=== PATIENT | female | born 1960 | race Caucasian/White ===

== ENCOUNTER 2024-08-07 14:26 | Emergency (ER) | payer OTHER, SELFPAY ==
[2024-08-07 14:28] VITALS: BP 148/100; PULSE 88; RESP 18; TEMP 36.2; O2SAT 100; BMI 28.9
--- NOTE | 2024-08-07 14:57 | CT_ITS ---
INDICATION: Erythema, swelling forehead and upper eyelids EXAMINATION: CT SINUSES - CT Sinuses W/O Contrast Injection TECHNIQUE: Helically acquired images were obtained of the paranasal sinuses. A radiation dose optimization technique was used for this scan. IV Contrast dosage and agent: None. COMPARISON: None. FINDINGS: FRONTAL SINUSES AND RECESSES: Absent. ETHMOID AIR CELLS: Clear. MAXILLARY SINUSES: Minimal mucoperiosteal thickening bilaterally. OSTIOMEATAL COMPLEXES: Clear and normally formed. SPHENOID SINUSES: Clear. ANCILLARY FINDINGS: NASAL TURBINATES: Unremarkable. NASAL SEPTUM: Midline. ORBITS: Unremarkable. VISUALIZED DENTITION: No periodontal osseous erosion. ANTERIOR CRANIAL FOSSA: Unremarkable. CT/Sinus/Facial Bone IMPRESSION: No significant paranasal sinus abnormality. Electronically Signed: Richard Aguilar MD at 16:27 EDT ,
--- NOTE | 2024-08-07 15:11 | EX.ED.DYSGE1 ---
HPI History of Present Illness Chief Complaint: Rash Detail of Chief Complaint: Rash involving the forehead bilaterally now extending to the bridge of the Informant: patient Onset/Context/Timing Onset: Days Context: Sudden Onset Timing: Continuous Quality: Erythematous rash with swelling and minimal itching Location: Bilateral forehead Current Severity: Moderate Maximum Severity: Moderate Worsened by: Nothing Relieved by: Nothing Associated Symptoms Associated Symptoms: Spread to the upper eyelids which concerns patient. Narrative Narrative: Patient is a 63-year-old woman. She was seen by her primary care physician and had blood work which revealed elevated ESR however normal once corrected for age, normal CRP and normal white count with differential. Basic metabolic panel revealed increased anion gap.. She then was seen by nurse practitioner for dermatology. Patient's concern is because she had preseptal cellulitis and was concerned this may spread to her eye and affect her vision. She denies fever, chills night sweats. No double vision blurred vision loss of vision. She states the rash is slightly pruritic. She has not had her hair dyed recently. She did have a lesion in the scalp which in my opinion was a sebaceous cyst. Patient reports that she had lymphadenopathy in proximity to the angle of the mandible right greater than left. Patient is on no immunosuppressive meds. There is no history of rheumatic fever, heart murmur, SBE or being immune suppressed. Prior similar symptoms: Yes Recent Illness/Hospitalization: Yes [facility] Medical History (Updated 08/07/24 @ 16:[address] Raad Patricio MD) Osteoporosis Rosacea Depression Anxiety Allergy/AdvReac Type Severity Reaction Status Date / Time Iodinated Contrast Media (IV Allergy Severe Anaphylaxis Verified 08/07/24 14:28 dye) vancomycin Allergy Severe Anaphylaxis Verified 08/07/24 14:28 codeine Allergy Mild itching Verified 08/07/24 14:28 Social History (Updated 08/07/24 @ 15:[address] Raad Patricio MD) household members: none Smoking Status: Never smoker ROS ROS ED Constitutional Constitutional ED: Denies chills, fever(s), subjective or sweats Eyes Eyes: Denies blurry vision, change in vision or diplopia ENT ENT ED: Denies rhinorrhea or sore throat Cardiovascular Cardiovascular: Denies chest pain or palpitations Respiratory/Chest Respiratory/Chest: Denies cough or dyspnea Gastrointestinal Gastrointestinal: Denies nausea or vomiting Musculoskeletal Musculoskeletal: Denies neck pain Integumentary Reports rash; Denies abscess or Abrasions Hematologic/Lymphatic Hematologic/Lymphatic: Reports systems reviewed and no addt'l complaints, except as documented Allergic/Immunologic Allergic/Immunologic ED: Denies mouth swelling, tongue swelling or urticaria EXAM Physical Exam Const Vital Signs: 08/07/24 14:28 08/07/24 14:28 08/07/24 15:31 Temperature 97.2 F L 97.2 F L 98.5 F Temperature Source Temporal Oral Oral Pulse Rate 88 88 81 Respiratory Rate 18 18 18 Blood Pressure 148/100 H 148/100 H 158/102 H Blood Pressure Mean 116 116 120 Pulse Ox 100 100 97 Oxygen Delivery Method Room Air Room Air Room Air Positive well nourished and well developed General Appearance ED: well developed and NAD; Negative for pallor HEENT Reports moist mucous membranes HEENT Narrative: There is swelling of the forehead bilaterally. The rash is erythematous and blanches. There is no induration, warmth lymphangitis or lymphadenopathy. There is swelling over the bridge of the nose and medial aspect of the right and left upper eyelid. There is no abnormality of the lash or lacrimal patterns. Eyes PERRL and EOMs intact bilaterally General Eye ED: Negative for pale conjunctiva or scleral icterus Neck no lymphadenopathy, supple and no JVD Resp normal respiratory effort and clear to auscultation bilaterally Cardio regular rate, regular rhythm, S1 normal heart sound, S2 normal heart sound and no murmurs Neuro oriented x3, CN's II-XII intact bilaterally and no sensory deficits noted Sensorium / Orientation: alert Psych Mood & Affect: anxious Skin no rashes or lesions noted, no wounds and skin turgor normal General Skin Exam: Negative for jaundice or pallor MDM MDM MDM Narrative Medical decision making narrative: Patient has a blanching erythematous rash involving the forehead, bridge of the nose and right upper and left upper eyelid. There is evidence that she had a sebaceous cyst near the vertex of the scalp. There is no erythema in this area nor is there any warmth or induration. There is no fluctuance. Uncertain if this is cellulitis or allergic reaction since patient is seen more than 1 practitioner was placed on antibiotics and more importantly there is been no change in spite of intervention. Will obtain CT of the face without contrast since she has anaphylaxis to IV contrast to determine there is any inflammation or fluid collection. Since she had blood work yesterday this was not repeated. White count was normal. Differential was normal. Compress metabolic panel reveals a CO2 of 21 with an anion gap of 16. ESR was elevated however normal once corrected for age. CRP was normal. Radiography Diagnostic Testing: Clinical Impression(s) from Imaging Studies Facial/Sinus 08/07/24 14:57 IMPRESSION: No significant paranasal sinus abnormality. Electronically Signed: Richard Aguilar MD at 16:27 EDT , CT was reviewed by me and interpretation by radiologist was read. Treatment and Re-Evaluation :: Patient's construction because of the swelling. I informed her that her workup was unremarkable. Since she has itching would recommend Benadryl and ice. Discharge Plan Triage Chief Complaint: Rash ED Provider: Raad Patricio Dx/Rx/DC Orders Clinical Impression: Pruritic erythematous rash, Elevated blood-pressure reading, without diagnosis of hypertension Instructions: ED Erythema, ED Hypertension, To Be Confirmed Primary Care Provider: Kavon Pinedo Referrals: Kavon Pinedo MD [Primary Care Provider] - 1 Week if not improving Print Language: Portuguese Disposition Disposition: Home, Self Care
[2024-08-07 15:31] VITALS: BP 158/102; PULSE 81; RESP 18; TEMP 36.9; O2SAT 97
[2024-08-07 17:03] VITALS: BP 145/90; PULSE 78; RESP 16; TEMP 36.8; O2SAT 96
== END 2024-08-07 17:05 | disposition home or self-care (01) ==
PROVIDERS: Emergency Provider Emergency Medicine; PCP Internal Medicine; Visit Provider Emergency Medicine
DX: R21 Rash and other nonspecific skin eruption (principal); R03.0 Elevated blood-pressure reading, without diagnosis of hypertension
CPT/HCPCS: 70486; 99282

== ENCOUNTER → 2024-12-23 | Outpatient (CLI) | payer OTHER, SELFPAY ==
--- NOTE | 2024-12-23 12:43 | RAD_ITS ---
PROCEDURE: PA and lateral chest radiographs, two views REASON FOR EXAM: Persistent cough TECHNIQUE: PA and lateral chest radiographs were obtained. COMPARISON: None. FINDINGS: The cardiomediastinal silhouette is within normal limits. The thoracic aorta is slightly tortuous. No pneumothorax, focal airspace consolidation, or pleural effusion. Mild pulmonary hyperinflation. Bones are osteopenic with degenerative changes in the spine. RAD/Chest PA and Lateral IMPRESSION: Pulmonary hyperinflation/emphysema. No acute cardiopulmonary process is demons trated. If there are persistent symptoms or clinical concern, short-term follow-up chest CT evaluation may be considered. Reading Location: [id number]
== END | disposition home or self-care (01) ==
LOC: MTRAD 12:42
PROVIDERS: PCP Family Medicine; Referring Provider Family Medicine; Visit Provider Family Medicine
DX: R05.3 Chronic cough (principal)
CPT/HCPCS: 71046

== ENCOUNTER → 2024-12-27 | Outpatient (CLI) | payer OTHER, SELFPAY ==
[2024-12-29 13:08] LABS: Alpha Antitrypsin Serum 137 mg/dL (101-187)
== END | disposition home or self-care (01) ==
LOC: MFPLAB 12:11
PROVIDERS: PCP Family Medicine; Referring Provider Family Medicine; Visit Provider Family Medicine
DX: J43.9 Emphysema, unspecified (principal)
CPT/HCPCS: 36415; 82103

== ENCOUNTER → 2025-07-29 | Outpatient (CLI) | payer OTHER, SELFPAY ==
--- OUTSIDE RECORDS SUMMARY | 2025-07-29 10:14 | XMS RPT_ITS | CCD ---
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 per week Drug use: Never BP 118/88 Pulse 84 Ht 160.7 cm (5' 3.25) Wt 72 kg (158 lb 11.7 oz) SpO2 99% BMI 27.90 kg/m? Physical Exam Vitals reviewed. Constitutional: Appearance: Normal appearance. HENT: Mouth/Throat: Mouth: Mucous membranes are moist. Eyes: Conjunctiva/sclera: Conjunctivae normal. Neck: Thyroid: No thyroid mass, thyromegaly or thyroid tenderness. Cardiovascular: Rate and Rhythm: Normal rate and regular rhythm. Pulses: Normal pulses. Heart sounds: Normal heart sounds. No murmur heard. Pulmonary: Effort: Pulmonary effort is normal. Breath sounds: Normal breath sounds. No wheezing, rhonchi or rales. Abdominal: General: There is no distension. Palpations: Abdomen is soft. There is no hepatomegaly, splenomegaly or mass. Tenderness: There is no abdominal tenderness. Lymphadenopathy: Cervical: No cervical adenopathy. Upper Body: Right upper body: No supraclavicular adenopathy. Left upper body: No supraclavicular adenopathy. Skin: General: Skin is warm and dry. Neurological: Mental Status: She is alert. Psychiatric: Mood and Affect: Mood normal. Health maintenance reviewed with patient: Cervical Cancer Screening due on 08/23/2025 Mammogram Screening due on 08/27/2025 Diabetes Screening due on 08/24/2027 Lipid Screening due on 09/30/2028 DTaP,Tdap,Td Vaccine(3 - Td or Tdap) due on 04/27/2032 Colorectal Cancer Screening due on 06/11/2034 RSV Vaccine(1 - 1-dose 75+ series) due on 2034 Influenza Vaccine Completed Hepatitis C Screening Completed HIV Screening Completed Shingrix Vaccine Completed Covid-19 Vaccine Completed DATA REVIEWED: Most recent labs ASSESSMENT/PLAN: 1. Wellness examination - ICD9: V70.0, ICD10: Z00.00 (primary diagnosis) - Counseled on healthy diet and regular exercise - Follow up for annual exam in one year 2. Major depressive disorder, recurrent episode, moderate (HCC) - ICD9: 296.32, ICD10: F33.1 Stable 3. Generalized anxiety disorder - ICD9: 30 (more content not included)... Normal [facility] LIPOPROTEIN FRACTIONATION BY NMR WITH LIPIDSon 09-09-2024 Cholesterol [Mass/Vol] 218 mg/dL High <=199 [facility] Comment on above: Order Comment: Speci men Type: BLOOD SPECIMENOrdering Facility: [facility] Address: [address] [place] [address] Performed By: #### N MRLPD ####[facility] [id number] [place] [address] Cholesterol in HDL [Mass/Vol] 53 mg/dL Normal 40-59 [facility] Comment on above: Order Comment: Speci men Type: BLOOD SPECIMENOrdering Facility: [facility] Address: [address] [place] [address] Performed By: #### N MRLPD ####[facility]CLIA [id number] [place] [address] EER LIPOFIT BY NMR See Note Normal [facility] Comment on above: Order Comment: Speci men Type: BLOOD SPECIMENOrdering Facility: [facility] Address: [address] [place] [address] Result Comment: Auth orized individuals can access the Clear[employer]ist Enhanced Report using the following link: [email or web address] INTERPRETIVE INFORMATION: LipoFit by NMR This test was developed and its performance characteristics determined by [facility]. It has not been cleared or approved by the [place] Food and Drug Administration. This test was performed in a CLIA certified laboratory and is intended for clinical purposes. Performed By: [employer] [address] [place] [address] Circulator: Piter Medina MD, PhD CLIA Number: [id number] Performed By: #### N MRLPD ####[facility] [id number] [place] [address] HDL PARTICLE NUMBER, NMR 35.8 umol/L Normal >=33.0 [facility] Comment on above: Order Comment: Speci men Type: BLOOD SPECIMENOrdering Facility: [facility] Address: [address] [place] [address] Result Comment: INTE RPRETIVE INFORMATION: HDL Particle Number, NMR Percentiles in Reference Population: 25th 50th 75th 29.7 33.0 36.8 Performed By: #### N MRLPD ####[facility]IA [id number] [place] [address] HDL PARTICLE SIZE, NMR 8.6 nm Low >=8.9 [facility] Comment on above: Order Comment: Speci men Type: BLOOD SPECIMENOrdering Facility: [facility] Address: [address] [place] [address] Result Comment: INTE RPRETIVE INFORMATION: HDL Particle Size, NMR Percentiles in Reference Population: 25th 50th 75th 8.6 8.9 9.3 Performed By: #### N MRLPD ####[facility]OR[facility]IESCLIA [id number] [place] [address] LARGE HDL PARTICLE NUMBER, NMR 3.2 umol/L Low >=4.2 [facility] Comment on above: Order Comment: Speci men Type: BLOOD SPECIMENOrdering Facility: [facility] Address: [address] [place] [address] Result Comment: INTE RPRETIVE INFORMATION: Large HDL Particle Number, NMR Percentiles in Reference Population: 25th 50th 75th 2.0 4.2 7.3 Performed By: #### N MRLPD ####[facility]CLIA [id number] [place] [address] LARGE VLDL PARTICLE NUMBER, NMR 2.1 nmol/L Normal <=2.7 [facility] Comment on above: Order Comment: Speci men Type: BLOOD SPECIMENOrdering Facility: [facility] Address: [address] [place] [address] Result Comment: INTE RPRETIVE INFORMATION: Large VLDL Particle Number, NMR Percentiles in Reference Population: 25th 50th 75th 0.9 2.7 7.0 Performed By: #### N MRLPD ####[facility]IESCLIA [id number] [place] [address] LDL CHOL CALCULATED 153 mg/dL High <=129 [facility] Comment on above: Order Comment: Speci men Type: BLOOD SPECIMENOrdering Facility: [facility] Address: [address] [place] [address] Performed By: #### N MRLPD ####[facility]IESCLIA [id number] [place] [address] LDL PARTICLE NUMBER, NMR 1356 nmol/L High <=1135 [facility] Comment on above: Order Comment: Speci men Type: BLOOD SPECIMENOrdering Facility: [facility] Address: [address] [place] [address] Result Comment: REFE RENCE INTERVAL: LDL Particle Number, NMR Low............... Less than 1136 Moderate.......... 1136 - 1449 Borderline High... 1450 - 1764 High.............. 1765 - 2186 Very High......... Greater than 2186 Percentiles in Reference Population: 50th 80th 95th 1136 1450 1765 2186 Percentiles consistent with those from NCEP ATP III LDL-C cutpoints of 100 mg/dL( percentile) and 160 mg/dL (80th percentile). Performed By: #### N MRLPD ####[facility]IESCLIA [id number] [place] [address] LDL PARTICLE SIZE, NMR 21.2 nm Normal >=20.7 [facility] Comment on above: Order Comment: Speci men Type: BLOOD SPECIMENOrdering Facility: [facility] Address: [address] [place] [address] Result Comment: INTE RPRETIVE INFORMATION: LDL Particle Size, NMR Percentiles in Reference Population: 25th 50th 75th 19.6 20.7 22.5 Performed By: #### N MRLPD ####[facility]IESCLIA [id number] [place] [address] SMALL LDL PARTICLE NUMBER, NMR 539 nmol/L Normal <=634 [facility] Comment on above: Order Comment: Speci men Type: BLOOD SPECIMENOrdering Facility: [facility] Address: [address] [place] [address] Result Comment: INTE RPRETIVE INFORMATION: Small LDL Particle Number, NMR Percentiles in Reference Population: 25th 50th 75th 220 634 949 Performed By: #### N MRLPD ####[facility]IESCLIA [id number] [place] [address] Triglyceride [Mass/Vol] 62 mg/dL Normal 30-149 [facility] Comment on above: Order Comment: Speci men Type: BLOOD SPECIMENOrdering Facility: [facility] Address: [address] [place] [address] Performed By: #### N MRLPD ####[facility]IESCLIA [id number] [place] [address] VLDL PARTICLE SIZE, NMR 46.7 nm Normal <=46.7 [facility] Comment on above: Order Comment: Speci men Type: BLOOD SPECIMENOrdering Facility: [facility] Address: [address] [place] [address] Result Comment: INTE RPRETIVE INFORMATION: VLDL Particle Size, NMR Percentiles in Reference Population: 25th 50th 75th 44.3 46.7 50.2 Performed By: #### N MRLPD ####[facility]IESCLIA [id number] [place] [address] CNOVon 09-06-2024 CNOV Office Visit (OBGYWM ) -------- ELIESER SPENCER ([id number]) 1960 F Date Time Provider Department 09/06/24 1:40 PM SHANNON GUERRERO OBGYWDerek During your visit today, we recorded the following information about you: Blood pressure Weight 126/80 72.1 kg Shannon Guerrero MD 09/06/2024 5:07 PM Signed Showroom Sales Assistant offered: Patient declines. Elieser is a 63 year old Female who presents today for a colposcopy. The patient's last pap smear was Positive HPV from August 2024. Patient has a history of abnormal pap: Yes. The patient has had prior treatment: none. test: n/a UNIVERSAL PROTOCOL / SAFETY CHECKLIST Procedure to be Performed: colposcopy Sign In: A Moment of CARE was completed. Personnel directly involved with the procedure wore the appropriate PPE (Personal Protective Equipment). Patient/Surrogate Stated/Verified: PATIENT VERIFIED(optional for EMERGENT procedures): Patient name, Date of , Relevant allergies, and The intended procedure Time Out Communication: Intended patient and procedure match the source documents. Consent documented and matches the intended procedure. Sign Out: SIGN OUT (optional for EMERGENT procedures): No specimen collected. All instruments, equipment, possible retained foreign bodies accounted for. PROCEDURE: EXTERNAL GENITALIA: Normal in appearance without lesions VAGINA: Normal in appearance without lesions CERVIX: Speculum placed in vagina and excellent visualization of cervix achieved. Cervix swabbed x 3 with 3% acetic acid solution. Cervix grossly normal. Squamocolumnar junction visualized. No acetowhite changes, punctations, mosaicism or atypical vasculature noted. BIOPSY: Not done. ECC: not done HEMOSTASIS: Obtained with n/a Procedure Summary: Patient tolerated procedure well and colposcopy was adequate. No annotated images are attached to the encounter. ASSESSMENT: HPV effect PLAN: Will notify patient of results in 1-2 weeks. Repeat pap yearly MD Juanita Obregon [place], [place] 09/06/2024 1:27 PM Signed YOUR RECOVERY It may take a few weeks for your cervix to heal. While your cervix heals, you may have: - Vaginal bleeding (less than a normal menstrual period) - Mild cramping - A brown-black vaginal discharge (similar to coffee grounds) which is a result of the paste used to help stop bleeding from the procedure Do NOT put anything in the vagina for 1 week after your colposcopy if your doctor does a biopsy of your cervix. This includes sex, tampons, and douches. If you have any discomfort, you may take an over the counter pain medication (motrin, advil, ibuprofen, tylenol, etc). If this does not relieve your discomfort, contact your doctor's office for a prescription strength pain medication. It is okay to wear a sanitary pad until the discharge and spotting stops. RISKS Although problems seldom occur with colposcopy, there can be some complications. You may feel faint during and shortly after the procedure as well as have some bleeding and vaginal discharge after the procedure. There is also a risk of infection after the procedure. These complications are rare and can be easily treated. You should contact you doctor is you have any of the following: - Heavy bleeding (more than your normal period) - Bleeding with clots - Severe abdominal pain - Fever (more than 100.4F) - Foul smelling vaginal discharge RESULTS If a biopsy was taken, we will have the results of your biopsy in 1-2 weeks. If you do not hear the results of your biopsy after 2 weeks, please contact your physicians office for the results. Depending on the biopsy results, your doctor will determine your follow up plan which may include further testing or treatments. STAYING HEALTHY After the procedure, you will need to see your doctor for follow up visits during the year. At these visits your doctor will check the health of your cervix with a pap smear. After three normal pap smears, your doctor will allow you to return to having exams once a year. If you have another abnormal pap smear, you may need closer follow up for longer or you may need additional treatment. By making a few lifestyle changes after the procedure, you can help protect the health of your cervix: - Have regular pelvic exams and pap smears as ordered by your doctor. - Stop smoking as smoking increases your risk of developing a cancer of the cervix - If you have more than one sexual partner, limit your number of partners and use condoms to reduce your risks of STDs. If you have any additional questions, please contact your doctor's office. Referring Provider: NEHAL BARRIGA [[id number]] Allergies As of Date: 09/06/2024 Noted Allergy Reaction IODIXANOL 04/27/2022 10 - Anaphylaxis IV DYE (IODINATED CONTRAST MEDIA) 11/07/2016 10 - Anaphylaxis VANCOMYCIN 11/07/2016 10 - Anaphyl (more content not included)... Normal [facility] Isaiah 08-30-2024 KENIA Telephone (OBGYWM) -------- HARRIETELIESER ([id number]) 1960 F Date Time Provider Department 08/30/24 NEHAL BARRIGA OBGYWM During your visit today, we recorded the following information about you: Nehal Barriga APRN.CNP 08/30/2024 12:06 PM Signed Pap normal and HPV+ again. She will need a colp again this yr. Order filed. Nehal Barriga APRN.Bambi Iyer RN 08/30/2024 12:20 PM Signed Left message to call office. FRANCESCA Jackson Tara, RN 08/30/2024 1:11 PM Signed Pt notified and colposcopy scheduled. Marco Humphries RN Allergies As of Date: 08/30/2024 Noted Allergy Reaction IODIXANOL 04/27/2022 10 - Anaphylaxis IV DYE (IODINATED CONTRAST MEDIA) 11/07/2016 10 - Anaphylaxis VANCOMYCIN 11/07/2016 10 - Anaphylaxis CODEINE 11/07/2016 2 - Rash Date Reviewed: 08/24/2024 Reviewed by: Annie Lance OCCA - Fully Assessed Reason for Visit: Results [95] Primary Visit Diagnosis:Cervical high risk HPV (human papillomavirus) test positive [R87.810] Order(s):COLPOSCOPY [[id number]] Order #: [id number] Prescriptions as of 08/30/2024 - minocycline (MINOCIN, DYNACIN) 100 mg capsule Take 100 mg by mouth two times a day. Has not started - DULoxetine (CYMBALTA) 30 mg capsule Take 1 capsule by mouth once daily. - naphazoline HCl/pheniramine (OPCON-A OPHTHALMIC) Use in eyes. - CETIRIZINE HCL (ZYRTEC ORAL) Take by mouth. 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 Patient states no personal history of breast cancer. Patient states no personal history of other cancers. COMPARISON STUDIES: The present examination has been compared to prior imaging studies dated 07/31/2017 (mammogram), 08/27/2017 (mammogram), 06/21/2022 (mammogram), 07/05/2022 (ultrasound) and 07/30/2023 (mammogram). MAMMOGRAM TECHNIQUE: The study was acquired using full field digital technology and interpreted from soft copy. Digital Breast Tomosynthesis (DBT) images were obtained and used to assist in the interpretation of this examination. Computer-aided detection was utilized by the radiologist in the interpretation of this examination. MAMMOGRAM FINDINGS: There are scattered areas of fibroglandular density. There is a stable focal asymmetry in the upper outer quadrant of the left breast. There are no significant changes from the prior study. No suspicious masses, calcifications or other abnormalities are seen in either breast. IMPRESSION: There is no mammographic evidence of malignancy. A routine screening mammogram in 1 year is recommended. BI-RADS Category 2: Benign RISK: Based on the Tyrer-Cuzick (TC) risk assessment model, this patient has a 6.6% lifetime risk of developing breast cancer, meaning they are at average risk for developing breast cancer. However, this is only an estimate based on available history provided on the patient's questionnaire. We encourage all patients to talk with their providers about these results, further recommendations for managing breast health, and appropriate supplemental screening options if the patient has dense breast tissue. Interpreting Radiologist: Meera Whipple M.D. Electronically signed on: 08/30/2024 Government Relations Analyst: PAUL Transcribe Date/Time: Aug 27 2024 8:39A Dictated by: MEERA WHIPPLE MD This examination was interpreted and the report reviewed and electronically signed by: MEERA WHIPPLE MD on Aug 30 2024 12:38PM EST [id number] Normal [facility] 25(OH)D3 SerPl-ncon 2023 25-hydroxyvitamin D3 [Mass/Vol] 31.5 ng/mL Normal 31.0-80.0 [facility] Comment on above: Order Comment: Dat torre Type: BLOOD SPECIMEN [facility] Address: [address] [place] [address] Performed By: #### T BRAEDEN #### [facility] CLIA [id number] [address] [place] [address] [place] Basic metabolic 2000 panelon 08-24-2024 Anion gap [Moles/Vol] 12 mmol/L Normal 8-15 [facility] Comment on above: Order Comment: Dat torre Type: BLOOD SPECIMENOrdering Facility: [facility] Address: [address] [place] [address] Performed By: #### 2 4321-2, 45572-3, 3051-0, 28735-8 ####[facility] [id number] [address] [address] [place] Calcium [Mass/Vol] 9.5 mg/dL Normal 8.5-10.2 [facility] Comment on above: Order Comment: Speci men Type: BLOOD SPECIMENOrdering Facility: [facility] Address: [address] [place] [address] Performed By: #### 2 4321-2, 13262-5, 3051-0, 42468-8 ####[facility] [id number] [place] [id number] [place] Chloride [Moles/Vol] 100 mmol/L Normal 98-107 [facility] Comment on above: Order Comment: Speci men Type: BLOOD SPECIMENOrdering Facility: [facility] Address: [address] [place] [address] Performed By: #### 2 4321-2, 76388-1, 3051-0, 90411-9 ####[facility] [id number] [place] [id number] [place] CO2 [Moles/Vol] 24 mmol/L Normal 22-30 [facility] Comment on above: Order Comment: Speci men Type: BLOOD SPECIMENOrdering Facility: [facility] Address: [address] [place], [place] [address] Performed By: #### 2 4321-2, 95895-3, 3051-0, 31698-5 ####[facility] [id number] [place] [id number] [place] Creatinine [Mass/Vol] 0.63 mg/dL Normal 0.58-0.96 [facility] Comment on above: Order Comment: Speci men Type: BLOOD SPECIMENOrdering Facility: [facility] Address: [address] [place] [address] Performed By: #### 2 4321-2, 91603-0, 3051-0, 89724-9 ####[facility]CLIA [id number] [place] [address] [place] Creatinine and Glomerular filtration rate.predicted panel (S/P/Bld) 99 mL/min/1.73m??? Normal >=60 [facility] Comment on above: Order Comment: Dat torre Type: BLOOD SPECIMENOrdering Facility: [facility] Address: [address] [place] [address] Result Comment: Iliana mated Glomerular Filtration Rate (eGFR) is calculated using the 2020 CKD-EPI creatinine equation. This equation utilizes serum creatinine, sex, and age as parameters. The creatinine assay has traceable calibration to isotope dilution-mass spectrometry. Refer to KDIGO guidelines for clinical interpretation. In patients with unstable renal function, e.g. those with acute kidney injury, the eGFR may not accurately reflect actual GFR. Performed By: #### 2 4321-2, 51428-1, 3051-0, 48287-9 ####[facility] [id number] [place] [address] [place] Glucose [Mass/Vol] 101 mg/dL High 74-99 [facility] Comment on above: Order Comment: Dat torre Type: BLOOD SPECIMENOrdering Facility: [facility] Address: [address] [place] [address] Result Comment: The [place] Diabetes Association (ADA) provides guidance for cutoff values for fasting glucose and random glucose. The ADA defines fasting as no caloric intake for at least 8 hours. Fasting plasma glucose results between 100 to 125 mg/dL indicate increased risk for diabetes (prediabetes). Fasting plasma glucose results greater than or equal to 126 mg/dL meet the criteria for diagnosis of diabetes. In the absence of unequivocal hyperglycemia, results should be confirmed by repeat testing. In a patient with classic symptoms of hyperglycemia or hyperglycemic crisis, random plasma glucose results greater than or equal to 200 mg/dL meet the criteria for diagnosis of diabetes. Reference: Standards of Medical Care in Diabetes 2016, [place] [employer] Association. Diabetes Care. 2016.39(Suppl 1). Performed By: #### 2 4321-2, 37367-7, 3051-0, 05019-4 ####[facility] [id number] [place] [address] [place] Potassium [Moles/Vol] 3.9 mmol/L Normal 3.7-5.1 [facility] Comment on above: Order Comment: Speci men Type: BLOOD SPECIMENOrdering Facility: [facility] Address: [address] [place] [address] Performed By: #### 2 4321-2, 06707-3, 3051-0, 17507-8 ####[facility] [id number] [place] [address] [place] Sodium [Moles/Vol] 136 mmol/L Normal 136-144 [facility] Comment on above: Order Comment: Speci men Type: BLOOD SPECIMENOrdering Facility: [facility] Address: [address] [place] [address] Performed By: #### 2 4321-2, 26824-6, 305-0, 71063-4 ####[facility] [id number] [place] [address] [place] Urea nitrogen [Mass/Vol] 18 mg/dL Normal 7-21 [facility] Comment on above: Order Comment: Speci men Type: BLOOD SPECIMENOrdering Facility: [facility] Address: [address] [place] [address] Performed By: #### 2 4321-2, 63666-5, 3051-0, 04718-4 ####[facility] LABIA [id number] [place] [address] [place] CBC W Auto Differential pane l (Bld)on 08-24-2024 Basophils (Bld) [#/Vol] NINF [facility] Basophils/100 WBC (Bld) 0.1 % [facility] Differential cell count method Nom (Bld) Auto [facility] Eosinophils (Bld) [#/Vol] [facility] Eosinophils/100 WBC (Bld) 0.3 % [facility] Erythrocyte distribution width (RBC) [Ratio] 13.4 % 11.5 - 15.0 % [facility] Hematocrit (Bld) [Volume fraction] 41.5 % 36.0 - 46.0 % [facility] Hemoglobin (Bld) [Mass/Vol] 13.8 g/dL 11.5 - 15.5 g/dL [facility] Immature granulocytes (Bld) [#/Vol] 0.07 10*3/uL [facility] Immature granulocytes/100 WBC (Bld) 1.0 % [facility] Lymphocytes (Bld) [#/Vol] 1.02 10*3/uL [facility] Lymphocytes/100 WBC (Bld) 14.1 % [facility] MCH (RBC) [Entitic mass] 31.9 pg 26.0 - 34.0 pg [facility] MCHC (RBC) [Mass/Vol] 33.3 g/dL 30.5 - 36.0 g/dL [facility] MCV (RBC) [Entitic vol] 96.1 fL 80.0 - 100.0 fL [facility] Monocytes (Bld) [#/Vol] 0.47 10*3/uL [facility] Monocytes/100 WBC (Bld) 6.5 % [facility] Neutrophils (Bld) [#/Vol] 5.66 10*3/uL [facility] Neutrophils/100 WBC (Bld) 78.0 % [facility] Nucleated RBC (Bld) [#/Vol] [facility] Nucleated RBC/100 WBC (Bld) [Ratio] 0.0 % /100 WBC [facility] ic Platelet mean volume (Bld) [Entitic vol] 10.2 fL 9.0 - 12.7 fL [facility] Platelets (Bld) [#/Vol] 302 10*3/uL [facility] RBC (Bld) [#/Vol] 4.32 10*6/uL 3.90 - 5.20 m/uL [facility] WBC (Bld) [#/Vol] 7.25 10*3/uL [facility] ic Basophils (Bld) [#/Vol] 10*3/uL Normal <0.11 [facility] Comment on above: Order Comment: Speci men Type: BLOOD SPECIMENOrdering Facility: [facility] Address: [address] [place] [address] Performed By: #### 4 537-7, 85440-9 ####[facility] LABCLIA [id number] [place] [address] [place] Basophils/100 WBC (Bld) 0.1 % Normal [facility] Comment on above: Order Comment: Speci men Type: BLOOD SPECIMENOrdering Facility: [facility] Address: [address] [place] [address] Performed By: #### 4 537-7, 77726-5 ####[facility] LABCLIA [id number] [place] [address] [place] Differential cell count method Nom (Bld) Auto Normal [facility] Comment on above: Order Comment: Speci men Type: BLOOD SPECIMENOrdering Facility: [facility] Address: [address] [place] [address] Performed By: #### 4 537-7, 09472-8 ####[facility] LABCLIA [id number] [place] [address] [place] Eosinophils (Bld) [#/Vol] 10*3/uL Normal <0.46 [facility] Comment on above: Order Comment: Speci men Type: BLOOD SPECIMENOrdering Facility: [facility] Address: [address] [place] [address] Performed By: #### 4 537-7, 49281-3 ####[facility] LABCLIA [id number] [place] [address] [place] Eosinophils/100 WBC (Bld) 0.3 % Normal [facility] Comment on above: Order Comment: Speci men Type: BLOOD SPECIMENOrdering Facility: [facility] Address: [address] [place] [address] Performed By: #### 4 537-7, 82656-4 ####[facility] LABCLIA [id number] [address] [address] [place] Erythrocyte distribution width (RBC) [Ratio] 13.4 % Normal 11.5-15.0 [facility] Comment on above: Order Comment: Speci men Type: BLOOD SPECIMENOrdering Facility: [facility] Address: [address] [place] [address] Performed By: #### 4 537-7, 79009-2 ####[facility] LABIA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 calcifications, or other findings are seen in the breast.IMPRESSION: BENIGN FINDINGThere is no mammographic evidence of malignancy.A 1 year screening mammogram is recommended.Caren Costello M.D.ch/penrad:08/27/2017 12:19:37Imaging Technologist: Ayanna Rush [facility] CenterMamm[facility] BI-RADS: 2 Benign findingTranscribed Using Voice RecognitionTranscribe Date/Time: Aug 27 2017 10:36ADictated by: CAREN COSTELLO MDThis examination was interpreted and the report reviewed and electronically signed by: CAREN COSTELLO MD on Aug 27 2017 12:19PM [id number] N [facility] 08-11-2017 [facility] HNO ID: [id number]: Mammography CoordinatorService: (none)Author Type: PhysicianType: LetterFiled: 08/13/2017 11:31 PMNote Text:August 12, 2017 PID: [id number] [id number] [place], [place] [address]Yynj Ms. Spencer,Your prior imaging studies have arrived and been compared to your currentstudy performed on 07/31/2017 which showed a possible finding thatrequires additional imaging studies for a complete evaluation. Most suchfindings are probably benign (not cancer).If you have a healthcare provider who ordered/prescribed your screeningmammogram: ? Please call [phone] or [phone] to schedulean appointment for your additional imaging (if you have not already done so).If you DO NOT have a healthcare provider (ie you did not have anorder/prescription for your screening mammogram): ? Please call to schedule an appointment for youradditional imaging (if you have not already done so).Your imaging studies and reports are kept on file at [facility] aspart of your permanent medical record, and are available for yourcontinuing care.Thank you for choosing [facility] for your imaging needs.Sincerely,<< >>nterpreting RadiologistBaystate Medical Center(compared needs addl imaging) [facility] 07-31-2017 [facility] HNO ID: [id number]: Mammography CoordinatorService: (none)Author Type: PhysicianType: LetterFiled: 08/04/2017 11:32 PMNote Text:July 31, 2017 PID: [id number] [id number] [place], [place] [address]Pteg Ms. Spencer,Your recent breast imaging exam on 07/31/2017 showed a possible findingthat requires additional imaging studies for a complete evaluation. Mostsuch findings are probably benign (not cancer). Please call [phone] to schedule an appointment for these tests if you havenot already done so.Your breast images and report will be kept on file here as part of yourpermanent medical record and are available for your continuing care.Thank you for allowing us to help in meeting your health care needs.Sincerely,Dr. SantosInterpreting [facility] ([facility]) [facility] SCREENINGon 07-31-2017 [facility] [place] * * *Final Report* * * * SEE BOTTOM OF REPORT FOR ADDENDED TEXT * * *DATE OF EXAM: Jul 31 2017 11:40AM [facility] 0581 - [facility] [place] / REASON: screeing mammogram * * * * Physician Interpretation * * * *RESULT: THIS REPORT HAS BEEN AMENDED.#[id number] - [facility] [place]CRE[place]BILATERAL DIGITAL SCREENING MAMMOGRAM WITH CAD: 07/31/2017HISTORY: Screeing Mammogram /Screening Mammogram - Patient reports NO breast symptoms /Patient has signed release for outside images.RESULT:TECHNIQUE: The study was acquired using full field digital technology and interpreted from soft copy.Current study was also evaluated with a Computer Aided Detection (CAD).No prior exams were available for comparison.There are scattered fibroglandular elements in both breasts.There is possible architectural distortion in the left breast posterior depth superior region seen on the mediolateral oblique view only.No other significant masses, calcifications, or other findings are seen in either breast.IMPRESSION: INCOMPLETE: NEEDS ADDITIONAL IMAGING EVALUATIONThe possible architectural distortion in the left breast is indeterminate. Additional views are recommended.Eddie Santos M.D.ls/penrad:07/31/2017 13:38:49Imaging Technologist: Ayanna Rush [facility] Centerletter sent: Additional Imaging NeededMammogram BI-RADS: 0 Incomplete: needs additional imaging evaluationAMENDMENT: 08/11/2017 Eddie Santos M.D.The patient's previous images dated 12/23/12, 05/05/14 and 06/07/15 are now available and have been compared. Recommend the patient return for additional images of the left breast.Amended BI-RADS: 0 Incomplete: needs additional imaging evaluationletter sent: Compared - Addl Imaging NeededTranscribed Using Voice RecognitionTranscribe Date/Time: Jul 31 2017 11:40ADictated by: EDDIE SANTOS MDThitara examination was interpreted and the report reviewed and electronically signed by: EDDIE SANTOS MD on Jul 31 2017 1:38PM ESTThis document has been addended by: EDDIE SANTOS MD on Aug 11 2017 2:25PM [id number] N [facility] Vital Signs Date Time Vital Sign Value Performing Clinician Faci lity 02-08-2025 14:37-0400 Body mass index (BMI) [Ratio] 28.47 kg/m2 Nehal Mershon AUDIO VISUAL SECRETARY.FOOD INSPECTOR Work Phone: [facility] 02-08-2025 14:37-0400 Body weight 73.48 kg Nehal Nithya AUDIO VISUAL SECRETARY.FOOD INSPECTOR Work Phone: [facility] 02-08-2025 14:37-0400 Diastolic blood pressure 84 mm[Hg] Nehal Nithya AUDIO VISUAL SECRETARY.FOOD INSPECTOR Work Phone: [facility] 02-08-2025 14:37-0400 Systolic blood pressure 128 mm[Hg] Nehal Nithya AUDIO VISUAL SECRETARY.FOOD INSPECTOR Work Phone: [facility] 09-29-2024 08:53-0500 Diastolic blood pressure 88 mm[Hg] Rosetta Urvashi AUDIO VISUAL SECRETARY.FOOD INSPECTOR Work Phone: [facility] 09-29-2024 08:53-0500 Systolic blood pressure 118 mm[Hg] Rosetta Urvashi AUDIO VISUAL SECRETARY.FOOD INSPECTOR Work Phone: [facility] 09-29-2024 08:51-0500 Body height 160.7 cm Rosetta Urvashi AUDIO VISUAL SECRETARY.FOOD INSPECTOR Work Phone: [facility] 09-29-2024 08:51-0500 Body mass index (BMI) [Ratio] 27.9 kg/m2 Rosetta Urvashi AUDIO VISUAL SECRETARY.FOOD INSPECTOR Work Phone: [facility] 09-29-2024 08:51-0500 Body weight 72 kg Rosetta Landin AUDIO VISUAL SECRETARY.FOOD INSPECTOR Work Phone: [facility] 09-29-2024 08:51-0500 Heart rate 84 /min Rosetta Landin AUDIO VISUAL SECRETARY.FOOD INSPECTOR Work Phone: [facility] 09-29-2024 08:51-0500 SaO2% (BldA) [Mass fraction] 99 % Rosetta Landin AUDIO VISUAL SECRETARY.FOOD INSPECTOR Work Phone: [facility] 09-06-2024 13:32-0500 Body mass index (BMI) [Ratio] 28.17 kg/m2 Shannon Guerrero MD Work Phone: [facility] 09-06-2024 13:32-0500 Body weight 72.12 kg Shannon Guerrero MD Work Phone: [facility] 09-06-2024 13:32-0500 Diastolic blood pressure 80 mm[Hg] Shannon Guerrero MD Work Phone: [facility] 09-06-2024 13:32-0500 Systolic blood pressure 126 mm[Hg] Shannon Guerrero MD Work Phone: [facility] 08-24-2024 08:52-0400 Body height 160 cm Avril Danielson AUDIO VISUAL SECRETARY.FOOD INSPECTOR Work Phone: [facility] 08-24-2024 08:52-0400 Body mass index (BMI) [Ratio] 28.74 kg/m2 Avril Danielson AUDIO VISUAL SECRETARY.FOOD INSPECTOR Work Phone: [facility] 08-24-2024 08:52-0400 Body weight 73.6 kg Avril Danielson AUDIO VISUAL SECRETARY.FOOD INSPECTOR Work Phone: [facility] 08-24-2024 08:52-0400 Diastolic blood pressure 95 mm[Hg] Avril Danielson AUDIO VISUAL SECRETARY.FOOD INSPECTOR Work Phone: [facility] 08-24-2024 08:52-0400 Heart rate 79 /min Avril Danielson AUDIO VISUAL SECRETARY.FOOD INSPECTOR Work Phone: [facility] 08-24-2024 08:52-0400 Systolic blood pressure 142 mm[Hg] Avril Danielson AUDIO VISUAL SECRETARY.FOOD INSPECTOR Work Phone: [facility] 08-23-2024 11:03-0400 Body height 161.1 cm Nehal Nithya AUDIO VISUAL SECRETARY.FOOD INSPECTOR Work Phone: [facility] 08-23-2024 11:03-0400 Body mass index (BMI) [Ratio] 28.17 kg/m2 Nehal Nithya AUDIO VISUAL SECRETARY.FOOD INSPECTOR Work Phone: [facility] 08-23-2024 11:03-0400 Body weight 73.12 kg Nehal Mershon AUDIO VISUAL SECRETARY.FOOD INSPECTOR Work Phone: [facility] 08-23-2024 11:03-0400 Diastolic blood pressure 84 mm[Hg] Nehal Nithya AUDIO VISUAL SECRETARY.FOOD INSPECTOR Work Phone: [facility] 08-23-2024 11:03-0400 Systolic blood pressure 138 mm[Hg] Nehal Mershon AUDIO VISUAL SECRETARY.FOOD INSPECTOR Work Phone: [facility] 08-05-2024 10:08-0400 Diastolic blood pressure 88 mm[Hg] Kavon Pinedo MD Work Phone: [facility] 08-05-2024 10:08-0400 Heart rate 90 /min Kavon Pinedo MD Work Phone: [facility] 08-05-2024 10:08-0400 Systolic blood pressure 133 mm[Hg] Kavon Pinedo MD Work Phone: [facility] 08-05-2024 09:57-0400 Body mass index (BMI) [Ratio] 28.97 kg/m2 Kavon Pinedo MD Work Phone: [facility] 08-05-2024 09:57-0400 Body temperature 99.39 [degF] Kavon Pinedo MD Work Phone: [facility] 08-05-2024 09:57-0400 Body weight 73.7 kg Kavon Pinedo MD Work Phone: [facility] 08-05-2024 09:57-0400 Respiratory rate 16 /min Kavon Pinedo MD Work Phone: [facility] 06-11-2024 10:14-0400 Respiratory rate 16 /min Dipak Leos MD Work Phone: [facility] 06-11-2024 09:35-0400 Diastolic blood pressure 84 mm[Hg] Dipak Leos MD Work Phone: [facility] 06-11-2024 09:35-0400 Heart rate 75 /min Dipak Leos MD Work Phone: [facility] 06-11-2024 09:35-0400 SaO2% (BldA) [Mass fraction] 100 % Dipak Leos MD Work Phone: [facility] 06-11-2024 09:35-0400 Systolic blood pressure 123 mm[Hg] Dipak Leos MD Work Phone: [facility] 06-11-2024 08:52-0400 Body mass index (BMI) [Ratio] 28.69 kg/m2 Dipak Leos MD Work Phone: [facility] 06-11-2024 08:52-0400 Body temperature 98.4 [degF] Dipak Leos MD Work Phone: [facility] 06-11-2024 08:52-0400 Body weight 73 kg Dipak Leos MD Work Phone: [facility] 05-04-2024 08:55-0400 Diastolic blood pressure 78 mm[Hg] Rosetta HayesUrvashi AUDIO VISUAL SECRETARY.FOOD INSPECTOR Work Phone: [facility] 05-04-2024 08:55-0400 Systolic blood pressure 108 mm[Hg] Rosetta Urvashi AUDIO VISUAL SECRETARY.FOOD INSPECTOR Work Phone: [facility] 05-04-2024 08:42-0400 Body mass index (BMI) [Ratio] 28.71 kg/m2 Rosetta Urvashi AUDIO VISUAL SECRETARY.FOOD INSPECTOR Work Phone: [facility] 05-04-2024 08:42-0400 Body weight 73.03 kg Rosetta Urvashi AUDIO VISUAL SECRETARY.FOOD INSPECTOR Work Phone: [facility] 05-04-2024 08:42-0400 Heart rate 91 /min Rosetta Urvashi AUDIO VISUAL SECRETARY.FOOD INSPECTOR Work Phone: [facility] 05-04-2024 08:42-0400 Respiratory rate 14 /min Rosetta Urvashi AUDIO VISUAL SECRETARY.FOOD INSPECTOR Work Phone: [facility] 05-04-2024 08:42-0400 SaO2% (BldA) [Mass fraction] 96 % Roestta Urvashi AUDIO VISUAL SECRETARY.FOOD INSPECTOR Work Phone: [facility] 10-01-2023 17:32-0500 Body height 159.5 cm Rosetta Older AUDIO VISUAL SECRETARY.FOOD INSPECTOR Work Phone: [facility] 10-01-2023 17:32-0500 Body weight 73.03 kg Rosetta Older AUDIO VISUAL SECRETARY.FOOD INSPECTOR Work Phone: [facility] 10-01-2023 17:32-0500 Diastolic blood pressure 84 mm[Hg] Rosetta Older AUDIO VISUAL SECRETARY.FOOD INSPECTOR Work Phone: [facility] 10-01-2023 17:32-0500 Heart rate 88 /min Rosetta Older AUDIO VISUAL SECRETARY.FOOD INSPECTOR Work Phone: [facility] 10-01-2023 17:32-0500 Respiratory rate 16 /min Rosetta Older AUDIO VISUAL SECRETARY.FOOD INSPECTOR Work Phone: [facility] 10-01-2023 17:32-0500 SaO2% (BldA) [Mass fraction] 99 % Rosetta Older AUDIO VISUAL SECRETARY.FOOD INSPECTOR Work Phone: [facility] 10-01-2023 17:32-0500 Systolic blood pressure 132 mm[Hg] Rosetta Older AUDIO VISUAL SECRETARY.FOOD INSPECTOR Work Phone: [facility] 10-18-2022 13:11-0500 Body temperature 97.11 [degF] Kavon Pinedo MD Work Phone: [facility] 10-18-2022 13:11-0500 Body weight 75.3 kg Kavon Pinedo MD Work Phone: [facility] 10-18-2022 13:11-0500 Diastolic blood pressure 72 mm[Hg] Kavon Pinedo MD Work Phone: [facility] 10-18-2022 13:11-0500 Heart rate 95 /min Kavon Pinedo MD Work Phone: [facility] 10-18-2022 13:11-0500 Respiratory rate 16 /min Kavon Pinedo MD Work Phone: [facility] 10-18-2022 13:11-0500 SaO2% (BldA) [Mass fraction] 98 % Kavon Pinedo MD Work Phone: [facility] 10-18-2022 13:11-0500 Systolic blood pressure 124 mm[Hg] Kavon Pinedo MD Work Phone: [facility] 10-02-2022 09:01-0500 Body weight 75.75 kg Nurse Wstr Work Phone: [facility] 10-02-2022 09:01-0500 Diastolic blood pressure 68 mm[Hg] Nurse Wstr Work Phone: [facility] 10-02-2022 09:01-0500 Systolic blood pressure 110 mm[Hg] Nurse Wstr Work Phone: [facility] 08-02-2022 09:22-0400 Body weight 72.12 kg Nurse Wstr Work Phone: [facility] 08-02-2022 09:22-0400 Diastolic blood pressure 80 mm[Hg] Nurse Wstr Work Phone: [facility] 08-02-2022 09:22-0400 Systolic blood pressure 110 mm[Hg] Nurse Wstr Work Phone: [facility] 07-31-2022 14:50-0400 Body weight 73.03 kg Kamini Villanueva MD Work Phone: [facility] 07-31-2022 14:50-0400 Diastolic blood pressure 78 mm[Hg] Kamini Villanueva MD Work Phone: [facility] 07-31-2022 14:50-0400 Systolic blood pressure 116 mm[Hg] Kamini Villanueva MD Work Phone: [facility] 06-21-2022 08:40-0400 Body height 162.6 cm Nehal Mershon AUDIO VISUAL SECRETARY.FOOD INSPECTOR Work Phone: [facility] 06-21-2022 08:40-0400 Body weight 70.85 kg Nehal Mershon AUDIO VISUAL SECRETARY.FOOD INSPECTOR Work Phone: [facility] 06-21-2022 08:40-0400 Diastolic blood pressure 74 mm[Hg] Nehal Mershon AUDIO VISUAL SECRETARY.FOOD INSPECTOR Work Phone: [facility] 06-21-2022 08:40-0400 Systolic blood pressure 138 mm[Hg] Nehal Nithya AUDIO VISUAL SECRETARY.FOOD INSPECTOR Work Phone: [facility] 06-10-2022 16:05-0400 Body height 161.3 cm Kavon Pinedo MD Work Phone: [facility] 06-10-2022 16:05-0400 Body temperature 97.3 [degF] Kavon Pinedo MD Work Phone: [facility] 06-10-2022 16:05-0400 Body weight 70.31 kg Kavon Pinedo MD Work Phone: [facility] 06-10-2022 16:05-0400 Diastolic blood pressure 76 mm[Hg] Kavon Pinedo MD Work Phone: [facility] 06-10-2022 16:05-0400 Heart rate 76 /min Kavon Pinedo MD Work Phone: [facility] 06-10-2022 16:05-0400 Respiratory rate 12 /min Kavon Pinedo MD Work Phone: [facility] 06-10-2022 16:05-0400 Systolic blood pressure 124 mm[Hg] Kavon Pinedo MD Work Phone: [facility] 04-27-2022 15:33-0400 Diastolic blood pressure 85 mm[Hg] Marilia Haney MD Work Phone: [facility] 04-27-2022 15:33-0400 Heart rate 82 /min Marilia Haney MD Work Phone: [facility] 04-27-2022 15:33-0400 SaO2% (BldA) [Mass fraction] 100 % Marilia Haney MD Work Phone: [facility] 04-27-2022 15:33-0400 Systolic blood pressure 128 mm[Hg] Marilia Haney MD Work Phone: [facility] 04-27-2022 15:16-0400 Respiratory rate 26 /min Marilia Haney MD Work Phone: [facility] 04-27-2022 13:01-0400 Body height 162.6 cm Marilia Haney MD Work Phone: [facility] 04-27-2022 13:01-0400 Body mass index (BMI) [Ratio] 28.32 kg/m2 Marilia Haney MD Work Phone: [facility] 04-27-2022 13:01-0400 Body temperature 97.59 [degF] Marilia Haney MD Work Phone: [facility] 04-27-2022 13:01-0400 Body weight 74.84 kg Marilia Haney MD Work Phone: [facility] 01-18-2022 09:09-0400 Body height 163.8 cm Bridgett Rosado MD Work Phone: [facility] 01-18-2022 09:09-0400 Body mass index (BMI) [Ratio] 28.39 kg/m2 Bridgett Rosado MD Work Phone: [facility] 01-18-2022 09:09-0400 Body temperature 98.01 [degF] Bridgett Rosado MD Work Phone: [facility] 01-18-2022 09:09-0400 Body weight 76.2 kg Bridgett Rosado MD Work Phone: [facility] 01-18-2022 09:09-0400 Diastolic blood pressure 88 mm[Hg] Bridgett Rosado MD Work Phone: [facility] 01-18-2022 09:09-0400 Heart rate 85 /min Bridgett Rosado MD Work Phone: [facility] 01-18-2022 09:09-0400 Respiratory rate 16 /min Bridgett Rosado MD Work Phone: [facility] 01-18-2022 09:09-0400 SaO2% (BldA) [Mass fraction] 98 % Bridgett Rosado MD Work Phone: [facility] 01-18-2022 09:09-0400 Systolic blood pressure 133 mm[Hg] Bridgett Rosado MD Work Phone: [facility] 09-26-2020 09:51-0500 BMI (Body Mass Index) 26.53 kg/m2 Bridgettchana Rosado [facility] 09-26-2020 09:51-0500 Body Temperature 97.5 [degF] Bridgett Rosado [facility] 09-26-2020 09:51-0500 Body weight 71.22 kg Bridgettchana Rosado [facility] 09-26-2020 09:51-0500 BP Diastolic 87 mm[Hg] Bridgettchana Rosado [facility] 09-26-2020 09:51-0500 BP Systolic 123 mm[Hg] Bridgett Rosado [facility] 09-26-2020 09:51-0500 Height 163.8 cm Bridgettchana Rosado [facility] 09-26-2020 09:51-0500 Pulse (Heart Rate) 87 /min Bridgettchana Rosado [facility] 09-26-2020 09:51-0500 Respiratory Rate 16 /min Bridgett Rosado [facility] 10-11-2019 10:13-0500 BMI (Body Mass Index) 25.18 kg/m2 Jerel Scherer [facility] 10-11-2019 10:13-0500 Body Temperature 98.71 [degF] Jerel Scherer [facility] 10-11-2019 10:13-0500 Body weight 67.59 kg Jerel Scherer [facility] 10-11-2019 10:13-0500 BP Diastolic 80 mm[Hg] Jerel Scherer [facility] 10-11-2019 10:13-0500 BP Systolic 118 mm[Hg] Jerel Scherer [facility] 10-11-2019 10:13-0500 Pulse (Heart Rate) 80 /min Jerel Scherer [facility] 10-11-2019 10:13-0500 Pulse Oximetry 98 % Jerel Scherer [facility] 09-03-2019 15:11-0400 BMI (Body Mass Index) 25.52 kg/m2 Bladimir Santiago [facility] 09-03-2019 15:11-0400 Body Temperature 97.59 [degF] Bladimir Santiago [facility] 09-03-2019 15:11-0400 Body weight 68.49 kg Bladimir Santiago [facility] 09-03-2019 15:11-0400 BP Diastolic 86 mm[Hg] Bladiimrcandelario Santiago [facility] 09-03-2019 15:11-0400 BP Systolic 125 mm[Hg] Bladimir Santiago [facility] 09-03-2019 15:110400 Height 163.8 [facility] 15:11-0400 Pulse (Heart Rate) 79 /min Bladimir Santiago [facility] 09-03-2019 15:110400 Pulse Oximetry 96 % Bladimir Santiago [facility] 04-13-2019 16:23-0400 BMI (Body Mass Index) 25.35 kg/m2 Rach Conrad [facility] 04-13-2019 16:23-0400 Body Temperature 98.6 [degF] Rach Conrad [facility] 04-13-2019 16:23-0400 BP Diastolic 74 mm[Hg] Rach Conrad [facility] 04-13-2019 16:23-0400 BP Systolic 109 mm[Hg] Rach Conrad [facility] 04-13-2019 16:23-0400 [facility] 16:23-0400 Pulse (Heart Rate) 84 /[facility] 16:23-0400 Pulse Oximetry 98 % Rach Conrad [facility] 04-13-2019 16:23-0400 Weight 68.04 kg Rach Conrad [facility] 02-09-2019 09:31-0400 BMI (Body Mass Index) 24.17 kg/m2 [facility] 02-09-2019 09:31-0400 Body Temperature 98.1 [degF] [facility] 02-09-2019 09:31-0400 BP Diastolic 86 mm[Hg] [facility] 02-09-2019 09:31-0400 BP Systolic 120 mm[Hg] [facility] 02-09-2019 09:31-0400 Height 163.8 cm [facility] 02-09-2019 09:31-0400 Pulse (Heart Rate) 76 /min [facility] 02-09-2019 09:31-0400 Pulse Oximetry 97 % [facility] 02-09-2019 09:31-0400 Respiratory Rate 14 /min [facility] 02-09-2019 09:31-0400 Weight 64.86 kg [facility] 07-10-2018 09:23-0400 BMI (Body Mass Index) 24 kg/m2 [facility] 07-10-2018 09:23-0400 Body Temperature 98.2 [degF] [facility] 07-10-2018 09:23-0400 BP Diastolic 82 mm[Hg] [facility] 07-10-2018 09:23-0400 BP Systolic 112 mm[Hg] [facility] 07-10-2018 09:23-0400 Height 163.8 cm [facility] 07-10-2018 09:23-0400 Pulse (Heart Rate) 82 /min [facility] 07-10-2018 09:23-0400 Pulse Oximetry 97 % [facility] 07-10-2018 09:23-0400 Respiratory Rate 12 /min [facility] 07-10-2018 09:23-0400 Weight 64.41 kg [facility] Encounters Encounter Date Encounter Type Care Provider Facility Start: 02-10-2025 End: 04-12-2025 Follow-up encounter Nehal Nithya CARRANZA Work Phone: OB/Gynecology Start: 02-08-2025 End: 02-08-2025 ambulatory NEHAL NITHYA Facility:[facility] Start: 02-08-2025 End: 02-08-2025 Patient encounter procedure Nehal Barriga AUDIO VISUAL SECRETARY.FOOD INSPECTOR Work Phone: OB/Gynecology Comment on above: Hair loss (Primary D x) Start: 01-27-2025 End: 01-27-2025 Telephone encounter Kavon Pinedo MD Work Phone: Internal Medicine [place] Comment on above: Patient Question Start: 12-27-2024 End: 12-27-2024 ambulatory Dank Garcia MD Work Phone: [facility] Work Phone: Start: 12-27-2024 End: 12-27-[address] [facility] Start: 12-27-2024 End: 12-27-2024 ambulatory Dank Jose Facility:[facility] Start: 12-23-2024 End: 12-23-[address] [facility] Start: 12-23-2024 End: 12-23-2024 ambulatory Dank [facility] Facility:[facility] Start: 10-25-2024 End: 12-27-2024 Telephone encounter Kavon Pinedo MD Work Phone: Family [facility] Comment on above: Bleeding/Bruising Start: 10-12-2024 End: 10-12-2024 Telephone encounter Kavon Pinedo MD Work Phone: Internal Medicine [place] Comment on above: Forms Start: 09-29-2024 End: 09-29-2024 ambulatory ROSETTA LANDIN Facility:[facility] Start: 09-29-2024 End: 09-29-2024 Patient encounter procedure Rosetta Landin AUDIO VISUAL SECRETARY.FOOD INSPECTOR Work Phone: Internal Medicine [place] Comment on above: Wellness examination (Primary Dx); Major depressive disorder, recurrent episode, moderate (HCC); Generalized anxiety disorder; Cervical lymphadenitis Start: 09-29-2024 End: 09-29-2024 Patient encounter status Rosetta ChanelUrvashitorsten REYESFOOD INSPECTOR Work Phone: [facility] Work Phone: Start: 09-09-2024 End: 09-09-2024 ambulatory AVRIL DANIELSON Facility:[facility] Start: 09-06-2024 End: 09-06-2024 ambulatory SHANNON GUERRERO Facility:[facility] Start: 09-06-2024 End: 09-06-2024 Patient encounter procedure Shannon Guerrero MD Work Phone: OB/Gynecology Comment on above: Cervical high risk h uman papillomavirus (HPV) DNA test positive (Primary Dx) Start: 08-30-2024 End: 08-30-2024 Telephone encounter Nehal Barriga APRN.FOOD INSPECTOR Work Phone: OB/Gynecology Comment on above: Results Start: 08-27-2024 End: 09-01-2024 MC Get Medical Advice Avril Danielson APRN.FOOD INSPECTOR Work Phone: Functional Medicine Comment on above: Need for Lab Orders Encounter for screen ing mammogram for malignant neoplasm of breast [Z12.31] Lab Orders Start: 08-24-2024 End: 08-24-[address] Work Phone: Functional Medicine Start: 08-24-2024 End: 08-24-2024 FQHC visit new patient Francy Mcgrath RD Work Phone: Functional Medicine Comment on above: New Patient Start: 08-24-2024 End: 08-24-2024 ambulatory KAVON PINEDO Facility:[facility] Start: 08-24-2024 End: 08-24-2024 Patient encounter procedure Avril Danielson APRN.FOOD INSPECTOR Work Phone: Functional Medicine Comment on above: 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 (Primary Dx); Chronic fatigue, unspecified; Other chronic pain; Rosacea; H/O seasonal allergies Start: 08-23-2024 End: 08-23-2024 ambulatory KAVON PINEDO Facility:[facility] Start: 08-23-2024 End: 08-23-2024 Patient encounter procedure Nehal Barriga SATISH.FOOD INSPECTOR Work Phone: OB/Gynecology Comment on above: Encounter for gyneco logical examination (general) (routine) without abnormal findings (Primary Dx); Screening for cervical cancer; Encounter for screening for human papillomavirus (HPV); Pap smear for cervical cancer screening; Encounter for screening mammogram for breast cancer Start: 08-23-2024 End: 08-23-2024 Patient encounter status Nehal Barriga SATISH.FOOD INSPECTOR Work Phone: [facility] Start: 08-16-2024 End: 08-16-2024 E-mail encounter from caregiver Avril Danielson SATISH.FOOD INSPECTOR Work Phone: Functional Medicine Start: 08-16-2024 End: 08-16-2024 FQ visit new patient Avril Danielson SATISH.FOOD INSPECTOR Work Phone: Functional Medicine Comment on above: New Patient Nutritio n Questionnaire Start: 08-07-2024 End: 08-07-2024 Emergency department patient visit Kavon Pinedo Facility:[facility] Start: 08-06-2024 End: 08-11-2024 Telephone encounter Rosetta Landin APRN.FOOD INSPECTOR Work Phone: Internal Medicine [place] Start: 08-05-2024 End: 08-05-2024 Subsequent hospital visit by physician Chay [facility] Work Phone: Radiology Comment on above: Cervical lymphadenit is [I88.9] Start: 08-05-2024 End: 08-05-2024 ambulatory KAVON PINEDO Facility:[facility] Start: 08-05-2024 End: 08-05-2024 Patient encounter procedure Kavon Pinedo MD Work Phone: Internal Medicine [place] Comment on above: Cervical lymphadenit is (Primary Dx); Major depressive disorder, recurrent episode, moderate (HCC); Generalized anxiety disorder; Screening for cervical cancer; Encounter for screening mammogram for malignant neoplasm of breast; Swelling of scalp Start: 07-16-2024 End: 07-19-2024 Telephone encounter Dipak Leos MD Work Phone: General Surgery Comment on above: Rectal Bleeding Start: 06-11-2024 End: 06-11-2024 ambulatory KAVON PINEDO Facility:[facility] Start: 06-11-2024 End: 06-11-2024 Subsequent hospital visit by physician Dipak Leos MD Work Phone: Ambulatory Surgery Comment on above: Screening for colon cancer [Z12.11] Start: 06-03-2024 Admission to [facility] Dipak Leos MD Work Phone: Ambulatory Surgery Comment on above: bowel prep Start: 06-03-2024 E-mail encounter fro m caregiver Dipak Leos MD Work Phone: Ambulatory Surgery Start: 05-04-2024 End: 05-04-2024 ambulatory ROSETTA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 contributing to patient's symptoms. She reports moderate blood lossfrom nares which has resolved at this point. No signs of anemia on exam today. Offered CBC, patientchoosing to defer at this time as it is unlikely to change the plan going forward. Also discussed history of easy bruising and bleeding, could consider further workup with lab studies in the future. Patient was discussed with Dr. Auguste. Patient was not seen by attending. Rach Conrad DO, PGY-3 [facility] Pager: [phone] Subjective: HPI Elieser Spencer is a 58 y.o. female with history of anemia, depression, and anxiety who presents with fatigue and depression. Symptoms started after sinus surgery a month ago - Dr. Clements performed septoplasty, SMR, and cautery of nasal turbinates on February 28 for deviated nasal septum and hypertrophic nasal turbinates. Postoperative course has been difficult and complicated by recurrent nose bleeds which has required caute rization multiple times.Has been feeling depressed, dizzy, not sleeping well, gaining weight. On the verge of crying all the time. Reports history of anemia as well as easy bruising and heavy uterinebleeding in the past which was related to a fibroid that has since been removed. Reports that this easy bleeding/bruising runs in the family but there has never been a formal diagnosis of any underlying conditions. Reports boyfriend of 2 years also recently broke up with her which was hard on her. Difficult going into the summer feeling this way - cancelled a trip. Just went to the weekend for a beach. Job has been going well though. Taking Celexa and Buspar for depression, has been on same regimen for ~4 years. Reports it was difficult finding a regimen that works for her and this was done at [facility]. She does not currently see a counselor. ROS Review of Systems Constitutional: Positive for activity change, appetite change (increased), fatigue and unexpected weight change (increased). Genitourinary: Negative for vaginal bleeding. Neurological: Positive for dizziness and weakness. Hematological: Bruises/bleeds easily. Psychiatric/Behavioral: Positive for dysphoric mood. The patient is nervous/anxious. Meds Current Outpatient Medications Medication Sig Dispense Refill busPIRone (BUSPAR) 15 MG tablet Take 1 (one) tablet (15 mg total) by mouth daily. 30 tablet 6 cetirizine (ZYRTEC) 10 MG tablet Take 10 mg by mouth 2 (two) times a day. citalopram (CELEXA) 20 MG tablet TAKE 1 TABLET BY MOUTH EVERY DAY 30 tablet 6 escitalopram oxalate (LEXAPRO) 10 MG tablet Take 0.5 (one-half) tablet (5 mg total) by mouth daily for 7 days, THEN 1 (one) tablet (10 mg total) daily. 30 tablet 2 No current facility-administered medications for this visit. Allergies Allergies Allergen Reactions Vancomycin Anaphylaxis Other reaction(s): Stopped breathing Codeine Hives Ct: Iodinated Contrast- Oral And Iv Dye Iodine PMHx Past Medical History: Diagnosis Date Anxiety Fibrocystic breast RLS (restless legs syndrome) PSHx Past Surgical History: Procedure Laterality Date HYSTEROSCOPY DILATION AND CURETTAGE WITH MYOSURE LAMINECTOMY ROTATOR CUFF REPAIR Left SEPTOPLASTY 02/28/2019 TENDON REPAIR HAND Right FamHx Family History Problem Relation Age of Onset Prostate cancer Father Kidney cancer Father Coronary artery disease Mother Clotting disorder Neg Hx SocHx Social History Socioeconomic History Marital status: Spouse name: Not on file Number of children: Not on file Years of education: Not on file Highest education level: Not on file Occupational History Not on file Social Needs Financial resource strain: Not on file Food insecurity: Worry: Not on file Inability: Not on file Transportation needs: Medical: Not on file Non-medical: Not on file Tobacco Use Smoking status: Never Smoker Smokeless tobacco: Never Used Substance and Sexual Activity Alcohol use: Yes Alcohol/week: 0.0 standard drinks Comment: 1 glass of wine per night Drug use: No Sexual activity: Yes Partners: Male control/protection: Post-menopausal Lifestyle Physical activity: Days per week: Not on file Minutes per session: Not on file Stress: Not on file Relationships Social connections: Talks on phone: Not on file Gets together: Not on file Attends denominational service: Not on file Active member of club or organization: Not on file Attends meetings of clubs or organizations: Not on file Relationship status: Not on file Other Topics Concern Not on file Social History Narrative Not on file Social History Tobacco Use Smoking Status Never Smoker Smokeless Tobacco Never Used Social History Substance and Sexual Activity Drug Use No Social History Substance and Sexual Activity Sexual Activity Yes Partners: Male control/protection: Post-menopausal Objective: Vitals BP 109/74 (BP Location: Left arm, Patient Position: Sitting, BP Cuff Size: Adult) Pulse 84 Temp98.6 F (37 C) (Oral) Ht 5' 4.5 Wt 68 kg (150 lb) LMP 10/16/2015 SpO2 98% BMI 25.35 kg/m Physical Exam Physical Exam Constitutional: She appears well-developed and well-nourished. No distress. HENT: Head: Normocephalic and atraumatic. Nasal turbinates erythematous, no active bleeding Eyes: Conjunctivae and EOM are normal. Right eye exhibits no discharge. Left eye exhibits no discharge. Cardiovascular: Normal rate, regular rhythm and normal heart sounds. Exam reveals no gallop and no friction rub. No murmur heard. Pulmonary/Chest: Effort normal and breath sounds normal. No respiratory distress. She has no wheezes. She has no rales. Musculoskeletal: She exhibits no edema or deformity. Neurological: She is alert. No cranial nerve deficit. Skin: Skin is warm and dry. No rash noted. She is not diaphoretic. No erythema. No pallor. Psychiatric: Appears depressed, tearful. Good judgment and insight documented in this encounter* Jerel Scherer DO - 10/11/2019 10:19 AM EST Assessment/Plan: Problem List Items Addressed This Visit Musculoskeletal and Integument Epidermal cyst - 3cm indurated area on posterior scalp with central punctate, consistent with epidermoid cyst. Also consider pilar cyst based on location. - Topical Mupirocin TID to area for one week. If the cyst begins to drain, enlarges, becomes more tender, or patient develop fevers come to office for further evaluation. Other Palpable lymph node Likely reactive from overlying cystic lesion on posterior scalp. - Palpable 1cm left sided occipital lymph node just inferior to cystic lesion - Continue to monitor at follow-up appointment. Return in about 2 days (around 10/13/2019) for Follow Up for Cyst on neck. Subjective: Patient ID: Elieser Spencer is a 58 y.o. female. Patient presenting today for evaluation of a bump on the back of her neck, thinking its a lymph node. She first noticed it about one week ago. The bump is painful to touch and has become more inflamed over the week. She was seen at clinic on 09/03 for recurrent maxillary sinusitis and was treated with a course of Augmentin at that time, which she completed. She does admit to recurrent rhinorrhea,which has improved since abx, nasal congestion, and a headache today that was frontal bilateral. She is leaving for [place] on 10/15-10/22 and wants this bump to be evaluated before leaving the country. She denies fevers/chills, weight loss, appetite change, changes in vision, difficulty hearing, ear pain, sore throat, chest pain, SOB, cough, abdominal pains, N/V, diarrhea, rashes, wounds. The following portions of the patient's history were reviewed and updated as appropriate: allergies, current medications, past family history, past medical history, past social history and problem list. Review of Systems Constitutional: Negative for chills and fever. HENT: Positive for congestion and rhinorrhea. Negative for ear pain and sore throat. Eyes: Negative for photophobia and visual disturbance. Respiratory: Negative for cough and shortness of breath. Cardiovascular: Negative for chest pain. Gastrointestinal: Negative for abdominal pain, constipation, diarrhea, nausea and vomiting. Skin: Negative for rash and wound. Neurological: Positive for headaches. Negative for dizziness and light-headedness. Hematological: Positive for adenopathy. Objective: BP 118/80 (BP Location: Right arm, Patient Position: Sitting, BP Cuff Size: Adult) Pulse 80 Temp 98.7 F (37.1 C) (Oral) Wt 67.6 kg (149 lb) LMP 10/16/2015 SpO2 98% BMI 25.18 kg/m Physical Exam Constitutional: General: She is not in acute distress. Appearance: She is not ill-appearing or toxic-appearing. HENT: Head: Normocephalic and atraumatic. Right Ear: Tympanic membrane and ear canal normal. Left Ear: Tympanic membrane and ear canal normal. Nose: Right Turbinates: Not swollen or pale. Left Turbinates: Swollen. Not pale. Mouth/Throat: Pharynx: Oropharynx is clear. Uvula midline. No pharyngeal swelling or oropharyngeal exudate. Cardiovascular: Rate and Rhythm: Normal rate and regular rhythm. Lymphadenopathy: Head: Right side of head: No occipital adenopathy. Left side of head: Occipital adenopathy present. Cervical: No cervical adenopathy. Right cervical: No superficial cervical adenopathy. Left cervical: No superficial cervical adenopathy. Upper Body: Right upper body: No axillary adenopathy. Left upper body: No axillary adenopathy. Comments: 1 cm - left sided occipital lymph node Skin: Psychiatric: Behavior: Behavior is cooperative. Patient was discussed with Dr. Ni. Patient was seen and examined independently by attending. Jerel Scherer PGY-1 Pager: [phone] documented in this encounter* Genesis Cortes MD - 09/26/2020 10:36 AM EST I have reviewed the history, physical, diagnosis and care plan with the resident physician, Bridgett Rosado MD on 09/26/2020. I confirm the assessment and treatment plan: Diagnoses and all orders for this visit: Trigger finger of right thumb - CBC; Future - Basic Metabolic Panel; Future - ECG 12 Lead; Future - ECG 12 Lead Encounter for preadmission testing - CBC; Future - Basic Metabolic Panel; Future - ECG 12 Lead; Future - ECG 12 Lead Screening for hyperlipidemia - Lipid Panel; Future Please see the resident's / fellow's note for full details. Genesis Cortes MD Family Medicine Primary Care Sports Medicine Bridgett Jordan MD - 09/26/2020 9:40 AM COURTNEY Elieser Spencer is a 59 y.o. female that has a past medical history of Anxiety, Fibrocystic breast,and RLS (restless legs syndrome). that is here today for pre- operative examination. Dx: Lipoma of right forearm, trigger thumb of right hand Procedure: Excision lipoma, trigger finger release; low risk Low: endoscopic, superficial, cataract, breast, ambulatory Mod-high: carotid, endovascular, head and neck, intraperitoneal, intrathoracic, orthopedic, prostate, peripheral vacular surgery. Surgeon: Bravo Isidro Date of Procedure: 10/06/2020 PCP: Nilsa Velasco MD Review of Systems Constitutional: Negative for chills and fever. Respiratory: Negative for cough and shortness of breath. Gastrointestinal: Negative for nausea and vomiting. All other systems reviewed and are negative. OBJECTIVE: LMP 10/16/2015 Physical Exam Constitutional: General: She is not in acute distress. Appearance: She is normal weight. HENT: Right Ear: External ear normal. Left Ear: External ear normal. Eyes: Extraocular Movements: Extraocular movements intact. Pupils: Pupils are equal, round, and reactive to light. Cardiovascular: Rate and Rhythm: Normal rate and regular rhythm. Pulses: Normal pulses. Heart sounds: No murmur. Pulmonary: Effort: Pulmonary effort is normal. No respiratory distress. Abdominal: General: Abdomen is flat. There is no distension. Tenderness: There is no abdominal tenderness. Musculoskeletal: Normal range of motion. Right lower leg: No edema. Left lower leg: No edema. Comments: Palpated trigger finger of right thumb on exam Skin: General: Skin is warm. Findings: No lesion or rash. Neurological: General: No focal deficit present. Mental Status: She is alert. Mental status is at baseline. Psychiatric: Mood and Affect: Mood normal. Behavior: Behavior normal. Cardiographics ECG: no change since previous ECG dated 02/2019. NSR non-specific T-wave changes Echocardiogram: No recent Echocardiogram Stress Test: No recent stress test, most recently without issue 2014 Revised Cardiac Risk Index: (patient with 3 or more should be put on Beta henry, do not start on day of surgery, do not titrate) DM: NO Heart Failure: NO (should have had an echo in the last year) CAD: NO Cerebrovascular disease: NO CKD: NO Any recent PR? No If so, patient needs to wait at least 60 days before having an elective procedure. Valvular disease? NO If so, patient should have had an echo within the last year. Age >65 OR procedure with high estimated blood loss? NO, but requested by surgeon Patient is undergoing > low risk surgery? Requested by surgeon Did patient receive steroids > 2 weeks over the last year? NO Does patient have a high risk cardiac condition and undergoing a high risk procedure which would indicate need for endocarditis prophylaxis? NO How many METS can patient do? Active at her job, can do 4 METS Those able to perform 4 METs of activity without symptoms are typically cleared for surgery unless other CI. Those unable to perform 4 METs may need pharmacologic stress test based on surgical risk. 1 MET examples: take care of self, eat/dress, use toilet, walk indoors around house 4 METs examples: climb 1 flight of stairs or walk up a hill, run a short distance, golf, bowl, tennis, throw a baseball 10 METs - Participate in strenuous sports - singles tennis, football, basketball, skiing Previous reaction to anesthesia: Very sensitive but no allergic reactions What level of risk is the surgery patient is to undergo? LOW Low: endoscopic, superficial, cataract, breast, ambulatory Mod-high: carotid, endovascular, head and neck, intraperitoneal, intrathoracic, orthopedic, prostate, peripheral vacular surgery. National Surgical Quality Improvement Program calculator score: -if major adverse cardiac event score is <1%, patient can proceed with elective surgery without the need for further cardiac testing. If MACE is > or equal to 1% patient needs pharmacologic cardiac stress test (i.e. dobutamine stress echo) Medications: reviewed medication list in the chart. Patient counseled to: Hold lithium supplement on day of surgery Can continue other home medications IMPRESSION: Patient is cleared for low-risk orthopedic surgery from a medical perspective. OK to proceed with planned procedure. If screening lab work comes back abnormal, note to be addended Bridgett Rosado MD [facility] PGY-3 Pager# [phone] Patient was discussed with Dr. Cortes. Patient was not seen by attending. documented in this encounter* Bladimir Santiago MD - 09/03/2019 3:01 PM EDT Elieser Spencer is a 58 y.o. female with history of recurrent sinusitis, anxiety, depression who presents with two weeks of cough, runny nose, adenopathy, ear fullness. Denies fevers, chills, nausea,vomiting. Has tried mucinex with some loosening of mucus, no other relieving or exacerbating factors . Assessment and Plan: Problem List Items Addressed This Visit Respiratory Acute recurrent maxillary sinusitis - Primary Two weeks of symptoms most likely due to sinusitis given post nasal drip, sinus pressure/pain, ear fullness. Has had recurrent sinusitis previously, now s/p turbinate reduction. - 10 day course of augmentin - Return to clinic if symptoms worsen or fail to improve Relevant Medications amoxicillin-clavulanate (AUGMENTIN) 875-125 mg per tablet Musculoskeletal and Integument Skin lesion of face Non-healing skin lesion on anterior aspect of nose for two months. Patient attributes to acne. She has had other poorly healing skin lesion on arm which was resected. She also reports previous basal cell carcinoma on nose which was resected, and has seen quenching car operator earlier this year. - Recommended assessment by quenching car operator for evaluation and possible biopsy of skin lesion. Patient was discussed with Dr. Ramírez. Patient was seen and examined independently by attending. Subjective: Elieser has cough, runny nose, scratchy throat, post nasal drip, neck pain, ear fullness, occasionalsneezing for two weeks. Symptoms are similar to previous episodes of sinusitis, possibly a little milder. Denies fevers, chills, nausea, vomiting, dyspnea, wheezing. She denies dysphoric mood, she is a little irritable with being sick which she attributes to poor sleep. Michela SI/HI. She also complains of non-healing facial lesion which she attributes to acne. Recommended she make appointment with quenching car operator who she follows with for evaluation and possible biopsy. Review of Systems Review of Systems Constitutional: Positive for fatigue. Negative for chills and fever. HENT: Positive for congestion, ear pain, postnasal drip, rhinorrhea, sinus pressure and sinus pain.Negative for hearing loss, sneezing, sore throat and trouble swallowing. Respiratory: Positive for cough. Negative for shortness of breath and wheezing. Cardiovascular: Negative for chest pain, palpitations and leg swelling. Gastrointestinal: Negative for abdominal pain, blood in stool, constipation, diarrhea, nausea and vomiting. Genitourinary: Negative for difficulty urinating, dysuria, flank pain and hematuria. Musculoskeletal: Positive for arthralgias and myalgias. Skin: Negative for color change, pallor and rash. Allergic/Immunologic: Positive for environmental allergies. Neurological: Positive for headaches. Negative for dizziness, light-headedness and numbness. Psychiatric/Behavioral: Positive for agitation. Negative for behavioral problems and confusion. I reviewed and updated the following as appropriate: past medical, social, and family history, current medications, allergies, problem list. Objective: BP 125/86 (BP Location: Left arm, Patient Position: Sitting, BP Cuff Size: Adult) Pulse 79 Temp97.6 F (36.4 C) (Oral) Ht 5' 4.5 Wt 68.5 kg (151 lb) LMP 10/16/2015 SpO2 96% BMI 25.52 kg/m Physical Exam Constitutional: She is well-developed, well-nourished, and in no distress. HENT: Mouth/Throat: Oropharynx is clear and moist. No oropharyngeal exudate. Eyes: Right eye exhibits no discharge. Left eye exhibits no discharge. Cardiovascular: Normal rate, regular rhythm and intact distal pulses. Exam reveals no gallop and nofriction rub. No murmur heard. Pulmonary/Chest: No respiratory distress. She has no wheezes. She has no rales. Abdominal: Soft. She exhibits no distension. There is no tenderness. There is no rebound and no guarding. Musculoskeletal: General: No tenderness, deformity or edema. Neurological: She is alert. Skin: Skin is warm and dry. No rash noted. No erythema. Psychiatric: She expresses no homicidal and no suicidal ideation. She expresses no suicidal plans and no homicidal plans. Bladimir Santiago MD 09/03/19 4:17 PM documented in this encounter Instructions * Patient Instructions* Rach Conrad, - 04/13/2019 5:01 PM EDT Decrease the Celexa to 10 mg daily for 1 week. At the same time, take Lexapro 5 mg daily. After that week is done, stop the Celexa and increase the Lexapro to 10 mg daily. Depression and Chronic Disease: Care Instructions Your Care Instructions A chronic disease is one that you have for a long time. Some chronic diseases can be controlled, but they usually cannot be cured. Depression is common in people with chronic diseases, but it often goes unnoticed. Many people have concerns about seeking treatment for a mental health problem. You may think it's asign of weakness, or you don't want people to know about it. It's important to overcome these reasons for not seeking treatment. Treating depression or anxiety is good for your health. Follow-up care is a pina part of your treatment and safety. Be sure to make and go to all appointments, and call your doctor if you are having problems. It's also a good idea to know your test resultsand keep a list of the medicines you take. How can you care for yourself at home? Watch for symptoms of depression The symptoms of depression are often subtle at first. You may think they are caused by your diseaserather than depression. Or you may think it is normal to be depressed when you have a chronic disease. If you are depressed you may: Feel sad or hopeless. Feel guilty or worthless. Not enjoy the things you used to enjoy. Feel hopeless, as though life is not worth living. Have trouble thinking or remembering. Have low energy, and you may not eat or sleep well. Pull away from others. Think often about or killing yourself. (Keep the numbers for these national suicide hotlines:7-589-777-TALK [ ] and 9-316-CDABRMC [ ].) Get treatment By treating your depression, you can feel more hopeful and have more energy. If you feel better, you may take better care of yourself, so your health may improve. Talk to your doctor if you have any changes in mood during treatment for your disease. Ask your doctor for help. Counseling, antidepressant medicine, or a combination of the two can helpmost people with depression. Often a combination works best. Counseling can also help you cope withhaving a chronic disease. When should you call for help? Call 911 anytime you think you may need emergency care. For example, call if: You feel like hurting yourself or someone else. Someone you know has depression and is about to attempt or is attempting suicide. Call your doctor now or seek immediate medical care if: You hear voices. Someone you know has depression and: ? Starts to give away his or her possessions. ? Uses illegal drugs or drinks alcohol heavily. ? Talks or writes about , including writing suicide notes or talking about guns, knives, or pills. ? Starts to spend a lot of time alone. ? Acts very aggressively or suddenly appears calm. Watch closely for changes in your health, and be sure to contact your doctor if: You do not get better as expected. Where can you learn more? Log into your personal health record on https://Done[employer] and enter A548 in the Education box to learn more about Depression and Chronic Disease: Care Instructions. Current as of: July 14, 2018 Content Version: 12.0 5002-8675 [employer]. Care instructions adapted under license by your healthcare professional. If you have questions about a medical condition or this instruction, always ask your healthcare professional. [employer] disclaims any warranty or liability for your use of this information. documented in this encounter* Patient Instructions* Bridgett Rosdao MD - 09/26/2020 10:37 AM EST Trigger Thumb and Trigger Finger in Children: Care Instructions Overview A trigger thumb is a thumb stuck in a bent position. It can also happen to a finger. It happens when the tendon that bends and straightens the thumb or finger can't slide smoothly under the ligamentsthat hold the tendon against the bones. In most cases, this is caused by a bump (nodule) that formson the tendon. The cause of the bump isn't known. Some cases may be caused by inflammation or problems with how the muscle develops. Your child's bent thumb or finger may straighten out on its own. A trigger thumb or finger can be painful. But it normally isn't a serious problem. Rest and exercises may help the thumb or finger relax so that it can move freely. The doctor may put a splint on your child's thumb or finger. This will give it some rest. Your child may need surgery if the thumb or finger keeps locking in a bent position. Follow-up care is a pina part of your child's treatment and safety. Be sure to make and go to all appointments, and call your doctor if your child is having problems. It's also a good idea to know your child's test results and keep a list of the medicines your child takes. How can you care for your child at home? If the doctor put a splint on the thumb or finger, have your child wear it as directed. Don't take it off until the doctor says you can. Give your child his or her medicines exactly as prescribed. Call your doctor if you think your child is having a problem with the medicine. If your doctor suggests exercises, have your child do them as directed. When should you call for help? Watch closely for changes in your child's health, and be sure to contact your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 Relationship Specialty Start Date End Date Kavon Pinedo MD [address] [place] [address] PCP - General Internal Medicine 08/28/22 Acquisitions Editor Relationship Specialty Start Date End Date Kavon Pinedo MD [address] [place], [place] [address] PCP - General Internal Medicine 08/28/22 Acquisitions Editor Relationship Specialty Start Date End Date Kavon Pinedo MD [address] [place] [address] PCP - General Internal Medicine 08/28/22 Acquisitions Editor Relationship Specialty Start Date End Date Kavon Pinedo MD [address] [place] [address] PCP - General Internal Medicine 08/28/22 Acquisitions Editor Relationship Specialty Start Date End Date Kavon Pinedo MD [address] [place] [address] PCP - General Internal Medicine 08/28/22 Acquisitions Editor Relationship Specialty Start Date End Date Kavon Pinedo MD [address] [place] [address] PCP - General Internal Medicine 08/28/22 Acquisitions Editor Relationship Specialty Start Date End Date Kavon Pinedo MD [address] [place] [address] PCP - General Internal Medicine 08/28/22 Acquisitions Editor Relationship Specialty Start Date End Date Blanka Call APRN PCP - General 05/29/22 08/27/22 Acquisitions Editor Relationship Specialty Start Date End Date Kavon Pinedo MD [address] [place] [address] PCP - General Internal Medicine 08/28/22 Acquisitions Editor Relationship Specialty Start Date End Date Kavon Pinedo MD [address] [place] [address] PCP - General Internal Medicine 08/28/22 Acquisitions Editor Relationship Specialty Start Date End Date Kavon Pinedo MD [address] [place] [address] PCP - General Internal Medicine 08/28/22 Acquisitions Editor Relationship Specialty Start Date End Date Kavon Pinedo MD [address] [place] [address] PCP - General Internal Medicine 08/28/22 Acquisitions Editor Relationship Specialty Start Date End Date Kavon Pinedo MD [address] [place] [address] PCP - General Internal Medicine 08/28/22 Acquisitions Editor Relationship Specialty Start Date End Date Kavon Pinedo MD [address] [place] [address] PCP - General Internal Medicine 08/28/22 Acquisitions Editor Relationship Specialty Start Date End Date Kavon Pinedo MD [address] [place] [address] PCP - General Internal Medicine 08/28/22 Acquisitions Editor Relationship Specialty Start Date End Date Kavon Pinedo MD [address] [place] [address] PCP - General Internal Medicine 08/28/22 Acquisitions Editor Relationship Specialty Start Date End Date Kavon Pinedo MD [address] [place] [address] PCP - General Internal Medicine 08/28/22 Acquisitions Editor Relationship Specialty Start Date End Date Kavon Pinedo MD [address] [place] [address] PCP - General Internal Medicine 08/28/22 Acquisitions Editor Relationship Specialty Start Date End Date Kavon Pinedo MD [address] [place] [address] PCP - General Internal Medicine 08/28/22 Acquisitions Editor Relationship Specialty Start Date End Date Kavon Pinedo MD [address] [place] [address] PCP - General Internal Medicine 08/28/22 Acquisitions Editor Relationship Specialty Start Date End Date Kavon Pinedo MD [address] [facility] [place] [address] PCP - General Internal Medicine 08/28/22 Rosetta Landin, AUDIO VISUAL SECRETARY.FOOD INSPECTOR [address] [place] [address] Fly Setter Internal Medicine 10/11/24 Acquisitions Editor Relationship Specialty Start Date End Date Kavon Pinedo MD [address] [facility] [place] [address] PCP - General Internal Medicine 08/28/22 Rosetta Landin, AUDIO VISUAL SECRETARY.FOOD INSPECTOR [address] [place] [address] Fly Setter Internal Medicine 10/11/24 Team Status: Active Member Role Status Paco Garcia MD Primary Care Provider Active Team Status: Inactive Member Role Status Paco Garcia MD Primary Care Provider Active St art: December 23, 2024 End: December 23, 2024 Dank Garcia MD Attending Provider Active Start : December 23, 2024 End: December 23, 2024 Dank Garcia MD Referring Provider Active Start : December 23, 2024 End: December 23, 2024 Team Status: Inactive Member Role Status Dates Dank Garcia MD Primary Care Provider Active St art: December 27, 2024 End: December 27, 2024 Dank Garcia MD Attending Provider Active Start : December 27, 2024 End: December 27, 2024 Dank Garcia MD Referring Provider Active Start : December 27, 2024 End: December 27, 2024 Scheduled Active and Recently Administ ered Medications (unrecognized section and content) Medication Order 04/25/2022 04/26/2022 04/27/2022 bacitracin ointment (COMPLETED) Topical, NOW, 1 dose, On 04/27/22 at 1342, Please apply to abrasions 1439 (Given - Provid er: Christian Browne RN) hydrocodone-acetaminophen (NORCO) 5-325 MG 0.5 tablet (COMPLETED) 0.5 tablet, Oral, NOW, 1 dose, On 04/27/22 at 1502, Maximum dose of acetaminophen is 4000 mg from all sources in 24 hours. 1437 (Given - Provid er: Christian Browne RN) Ketorolac (TORADOL) injection 15 mg (COMPLETED) 15 mg, IV Push, NOW, 1 dose, On 04/27/22 at 1502 1438 (Given - Provid er: Christian Browne RN) Continuous Medication Order 04/25/2022 04/26/2022 04/27/2022 0.9% NaCl infusion Intravenous, at 150 mL/hr, CONTINUOUS, Starting on 04/27/22 at 1336, Until Discontinued, Warm NaCl 0.9% IV Infusion Infuse BY GRAVITY 1320 (Canceled Entry - Provider: Christian Browne RN) Source Comments (unrecognize d section and content) In the event this informatio n is protected by the Federal Confidentiality of Alcohol and Drug Abuse Patient Records regulations: The Federal rules restrict any use of the information to criminally investigate or prosecute any alcohol or drug abuse patient.[facility]In the event this information is protected by the Federal Confidentiality of Alcohol and Drug Abuse Patient Records regulations: The Federal rules restrict any use of the information to criminally investigate or prosecute any alcohol or drug abuse patient.[facility]In the event this information is protected by the Federal Confidentiality of Alcohol and Drug Abuse Patient Records regulations: The Federal rules restrict any use of the information to criminally investigate or prosecute any alcohol or drug abuse patient.[facility]In the event this information is protected by the Federal Confidentiality of Alcohol and Drug Abuse Patient Records regulations: The Federal rules restrict any use of the information to criminally investigate or prosecute any alcohol or drug abuse patient.[facility] HospitalIn the event this information is protected by the Federal Confidentiality of Alcohol and Drug Abuse Patient Records regulations: The Federal rules restrict any use of the information to criminally investigate or prosecute any alcohol or drug abuse patient.[facility] HospitalIn the event this information is protected by the Federal Confidentiality of Alcohol and Drug Abuse Patient Records regulations: The Federal rules restrict any use of the information to criminally investigate or prosecute any alcohol or drug abuse patient.[facility] HospitalIn the event this information is protected by the Federal Confidentiality of Alcohol and Drug Abuse Patient Records regulations: The Federal rules restrict any use of the information to criminally investigate or prosecute any alcohol or drug abuse patient.[facility] HospitalIn the event this information is protected by the Federal Confidentiality of Alcohol and Drug Abuse Patient Records regulations: The Federal rules restrict any use of the information to criminally investigate or prosecute any alcohol or drug abuse patient.[facility] HospitalIn the event this information is protected by the Federal Confidentiality of Alcohol and Drug Abuse Patient Records regulations: The Federal rules restrict any use of the information to criminally investigate or prosecute any alcohol or drug abuse patient.[facility] HospitalIn the event this information is protected by the Federal Confidentiality of Alcohol and Drug Abuse Patient Records regulations: The Federal rules restrict any use of the information to criminally investigate or prosecute any alcohol or drug abuse patient.[facility] HospitalIn the event this information is protected by the Federal Confidentiality of Alcohol and Drug Abuse Patient Records regulations: The Federal rules restrict any use of the information to criminally investigate or prosecute any alcohol or drug abuse patient.[facility] HospitalIn the event this information is protected by the Federal Confidentiality of Alcohol and Drug Abuse Patient Records regulations: The Federal rules restrict any use of the information to criminally investigate or prosecute any alcohol or drug abuse patient.[facility] HospitalIn the event this information is protected by the Federal Confidentiality of Alcohol and Drug Abuse Patient Records regulations: The Federal rules restrict any use of the information to criminally investigate or prosecute any alcohol or drug abuse patient.[facility] HospitalIn the event this information is protected by the Federal Confidentiality of Alcohol and Drug Abuse Patient Records regulations: The Federal rules restrict any use of the information to criminally investigate or prosecute any alcohol or drug abuse patient.[facility] HospitalIn the event this information is protected by the Federal Confidentiality of Alcohol and Drug Abuse Patient Records regulations: The Federal rules restrict any use of the information to criminally investigate or prosecute any alcohol or drug abuse patient.[facility] HospitalIn the event this information is protected by the Federal Confidentiality of Alcohol and Drug Abuse Patient Records regulations: The Federal rules restrict any use of the information to criminally investigate or prosecute any alcohol or drug abuse patient.[facility] HospitalIn the event this information is protected by the Federal Confidentiality of Alcohol and Drug Abuse Patient Records regulations: The Federal rules restrict any use of the information to criminally investigate or prosecute any alcohol or drug abuse patient.[facility] HospitalIn the event this information is protected by the Federal Confidentiality of Alcohol and Drug Abuse Patient Records regulations: The Federal rules restrict any use of the information to criminally investigate or prosecute any alcohol or drug abuse patient.[facility] HospitalIn the event this information is protected by the Federal Confidentiality of Alcohol and Drug Abuse Patient Records regulations: The Federal rules restrict any use of the information to criminally investigate or prosecute any alcohol or drug abuse patient.[facility] HospitalIn the event this information is protected by the Federal Confidentiality of Alcohol and Drug Abuse Patient Records regulations: The Federal rules restrict any use of the information to criminally investigate or prosecute any alcohol or drug abuse patient.[facility] HospitalIn the event this information is protected by the Federal Confidentiality of Alcohol and Drug Abuse Patient Records regulations: The Federal rules restrict any use of the information to criminally investigate or prosecute any alcohol or drug abuse patient.[facility] HospitalIn the event this information is protected by the Federal Confidentiality of Alcohol and Drug Abuse Patient Records regulations: The Federal rules restrict any use of the information to criminally investigate or prosecute any alcohol or drug abuse patient.[facility] HospitalIn the event this information is protected by the Federal Confidentiality of Alcohol and Drug Abuse Patient Records regulations: The Federal rules restrict any use of the information to criminally investigate or prosecute any alcohol or drug abuse patient.[facility] HospitalIn the event this information is protected by the Federal Confidentiality of Alcohol and Drug Abuse Patient Records regulations: The Federal rules restrict any use of the information to criminally investigate or prosecute any alcohol or drug abuse patient.[facility] HospitalIn the event this information is protected by the Federal Confidentiality of Alcohol and Drug Abuse Patient Records regulations: The Federal rules restrict any use of the information to criminally investigate or prosecute any alcohol or drug abuse patient.[facility] HospitalIn the event this information is protected by the Federal Confidentiality of Alcohol and Drug Abuse Patient Records regulations: The Federal rules restrict any use of the information to criminally investigate or prosecute any alcohol or drug abuse patient.[facility] HospitalIn the event this information is protected by the Federal Confidentiality of Alcohol and Drug Abuse Patient Records regulations: The Federal rules restrict any use of the information to criminally investigate or prosecute any alcohol or drug abuse patient.[facility] HospitalIn the event this information is protected by the Federal Confidentiality of Alcohol and Drug Abuse Patient Records regulations: The Federal rules restrict any use of the information to criminally investigate or prosecute any alcohol or drug abuse patient.[facility] HospitalIn the event this information is protected by the Federal Confidentiality of Alcohol and Drug Abuse Patient Records regulations: The Federal rules restrict any use of the information to criminally investigate or prosecute any alcohol or drug abuse patient.[facility] HospitalIn the event this information is protected by the Federal Confidentiality of Alcohol and Drug Abuse Patient Records regulations: The Federal rules restrict any use of the information to criminally investigate or prosecute any alcohol or drug abuse patient.[facility] HospitalIn the event this information is protected by the Federal Confidentiality of Alcohol and Drug Abuse Patient Records regulations: The Federal rules restrict any use of the information to criminally investigate or prosecute any alcohol or drug abuse patient.[facility] HospitalIn the event this information is protected by the Federal Confidentiality of Alcohol and Drug Abuse Patient Records regulations: The Federal rules restrict any use of the information to criminally investigate or prosecute any alcohol or drug abuse patient.[facility] HospitalIn the event this information is protected by the Federal Confidentiality of Alcohol and Drug Abuse Patient Records regulations: The Federal rules restrict any use of the information to criminally investigate or prosecute any alcohol or drug abuse patient.[facility] HospitalIn the event this information is protected by the Federal Confidentiality of Alcohol and Drug Abuse Patient Records regulations: The Federal rules restrict any use of the information to criminally investigate or prosecute any alcohol or drug abuse patient.[facility] HospitalIn the event this information is protected by the Federal Confidentiality of Alcohol and Drug Abuse Patient Records regulations: The Federal rules restrict any use of the information to criminally investigate or prosecute any alcohol or drug abuse patient.[facility] HospitalIn the event this information is protected by the Federal Confidentiality of Alcohol and Drug Abuse Patient Records regulations: The Federal rules restrict any use of the information to criminally investigate or prosecute any alcohol or drug abuse patient.[facility] HospitalIn the event this information is protected by the Federal Confidentiality of Alcohol and Drug Abuse Patient Records regulations: The Federal rules restrict any use of the information to criminally investigate or prosecute any alcohol or drug abuse patient.[facility] HospitalIn the event this information is protected by the Federal Confidentiality of Alcohol and Drug Abuse Patient Records regulations: The Federal rules restrict any use of the information to criminally investigate or prosecute any alcohol or drug abuse patient.[facility] HospitalIn the event this information is protected by the Federal Confidentiality of Alcohol and Drug Abuse Patient Records regulations: The Federal rules restrict any use of the information to criminally investigate or prosecute any alcohol or drug abuse patient.[facility] HospitalIn the event this information is protected by the Federal Confidentiality of Alcohol and Drug Abuse Patient Records regulations: The Federal rules restrict any use of the information to criminally investigate or prosecute any alcohol or drug abuse patient.[facility] HospitalIn the event this information is protected by the Federal Confidentiality of Alcohol and Drug Abuse Patient Records regulations: The Federal rules restrict any use of the information to criminally investigate or prosecute any alcohol or drug abuse patient.[facility] HospitalIn the event this information is protected by the Federal Confidentiality of Alcohol and Drug Abuse Patient Records regulations: The Federal rules restrict any use of the information to criminally investigate or prosecute any alcohol or drug abuse patient.[facility] HospitalIn the event this information is protected by the Federal Confidentiality of Alcohol and Drug Abuse Patient Records regulations: The Federal rules restrict any use of the information to criminally investigate or prosecute any alcohol or drug abuse patient.[facility] HospitalIn the event this information is protected by the Federal Confidentiality of Alcohol and Drug Abuse Patient Records regulations: The Federal rules restrict any use of the information to criminally investigate or prosecute any alcohol or drug abuse patient.[facility] HospitalIn the event this information is protected by the Federal Confidentiality of Alcohol and Drug Abuse Patient Records regulations: The Federal rules restrict any use of the information to criminally investigate or prosecute any alcohol or drug abuse patient.[facility] HospitalIn the event this information is protected by the Federal Confidentiality of Alcohol and Drug Abuse Patient Records regulations: The Federal rules restrict any use of the information to criminally investigate or prosecute any alcohol or drug abuse patient.[facility] HospitalIn the event this information is protected by the Federal Confidentiality of Alcohol and Drug Abuse Patient Records regulations: The Federal rules restrict any use of the information to criminally investigate or prosecute any alcohol or drug abuse patient.[facility] HospitalIn the event this information is protected by the Federal Confidentiality of Alcohol and Drug Abuse Patient Records regulations: The Federal rules restrict any use of the information to criminally investigate or prosecute any alcohol or drug abuse patient.[facility] HospitalIn the event this information is protected by the Federal Confidentiality of Alcohol and Drug Abuse Patient Records regulations: The Federal rules restrict any use of the information to criminally investigate or prosecute any alcohol or drug abuse patient.[facility] Goals (unrecognized section and content) Goals may be documented in a n alternate section FOR RECORDS PERTAINING TO PATIENTS WHO ARE OR HAVE BEEN ENROLLED IN A CHEMICAL DEPENDENCY/SUBSTANCEABUSE PROGRAM, SOME INFORMATION MAY BE OMITTED. This clinical summary was aggregated from multiple sources. Caution should be exercised in using it in the provision of clinical care. This summary normalizes information from multiple sources, and as a consequence, information in this document may materially change the coding, format and clinical context of patient data. In addition, data may be omitted in some cases. CLINICAL DECISIONS SHOULD BE BASED ON THE PRIMARY CLINICAL RECORDS. [facility] provides no warranty or guarantee of the accuracy or completeness of information in this document.
[2025-07-29 12:25] LABS: Hematocrit 40.0 % (37-47); Hemoglobin 14.2 g/dL (12.0-15.0); Mean Corp Hgb Conc 35.5 g/dL (32-36); Mean Corpuscular Volume 92.8 fL (81-99); Mean Platelet Vol. 11.0 fl (6.2-12.0); Platelet Count 244 K/mm3 (150-450); RBC Distribution Width CV 11.9 % (11.6-14.6); RBC Distribution Width SD 41.3 fl (35.1-43.9); Red Blood Count 4.31 M/mm3 (4.2-5.4); White Blood Count 3.1 K/mm3 (4.4-11.0)
[2025-07-29 13:22] LABS: AST(SGOT) 28 U/L (<=31); Alanine Aminotransfer ALT/SGPT 30 U/L (<=34); Albumin, Serum 3.4 g/dL (3.4-4.8); Alkaline Phosphatase 60 U/L (35-104); Anion Gap 10 (5-15); BUN 19 mg/dL (4-19); BUN/Creat Ratio 27.5 RATIO (10-20); Calcium,Total 8.3 mg/dL (7.6-11.0); Carbon Dioxide 23.6 mmol/L (21.0-32.0); Chloride 106 mmol/L (98-108); Cholesterol 186 mg/dL (<=200); Globulin 3.7 g/dL (2.2-4.2); Glucose 91 mg/dL (70-99); Low Density Lipoprotein Calc. 125 mg/dL; Potassium 4.4 mmol/L (3.3-5.1); Triglycerides 37 mg/dL; Very Low Density Lipoprotein 7 mg/dL (5-40); Vitamin D,25 Hydroxy 30.3 ng/mL (30-100); cholesterol:hdl ratio screen 3.50
== END | disposition home or self-care (01) ==
LOC: MFPLAB 09:50
PROVIDERS: PCP Family Medicine; Referring Provider Family Medicine; Visit Provider Family Medicine
DX: Z00.00 Encounter for general adult medical examination without abnormal findings (principal); Z13.220 Encounter for screening for lipoid disorders; Z13.1 Encounter for screening for diabetes mellitus
CPT/HCPCS: 36415; 80053; 80061; 82306; 85027

== ENCOUNTER 2025-09-27 06:11 | Day surgery (SDC) | payer OTHER, SELFPAY ==
[2025-09-27] VITALS (8 sets, daily range): BP systolic 128–142; BP diastolic 88–97; PULSE 71–86; RESP 16–20; TEMP 36.2–36.6; O2SAT 95–100; BMI 26.1
--- OUTSIDE RECORDS SUMMARY | 2025-09-27 06:17 | XMS RPT_ITS | CCD ---
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 Gyne cologic Cytology Report Case: [id number] Authorizing Provider: Nehal Barriga APRN.IMPLEMENTATION PROJECT MANAGER Collected: 08/30/2025 04:03 PM Ordering Location: OB/Gynecology Received: 08/30/2025 04:28 PM First Screen: Joann Alas, CT, ASCP Rescreen: Nori Fernando CT, ASCP Specimen: Pap Test, ThinPrep, Cervix Performed By: #### L [id number] ####[facility] LABCLIA [id number] [place] [address] [place] CLINICAL HISTORY, CYTOLOGY, SKIAGRAPHER Routine Exam Normal [facility] Comment on above: Order Comment: Speci men Type: FLUID SPECIMENOrdering Facility: [facility] Address: [address] [place] [address] Result Comment: Post Menopausal Performed By: #### L [id number] ####[facility] LABCLIA [id number] [place] [address] [place] FINAL PERFORMING LAB Normal [facility] Comment on above: Order Comment: Speci men Type: FLUID SPECIMENOrdering Facility: [facility] Address: [address] [place] [address] Result Comment: Tech nical component, quality control coordinator screening performed at: [facility], [address] [place] [address] CLIA: [id number] Diagnostic interpretation performed at: [facility], [address] [place] [address] CLIA# [id number] Single Pointed Operator: Quinn Franklin MD Performed By: #### L [id number] ####[facility] LABCLIA [id number] [address] STATES OF [facility] INTERPRETATION, CYTOLOGY, SKIAGRAPHER Normal [facility] Comment on above: Order Comment: Speci men Type: FLUID SPECIMENOrdering Facility: [facility] Address: [address] [place] [address] Result Comment: Nega tive for intraepithelial lesion or malignancy. at 0746 EDT Performed By: #### L [id number] ####[facility] LABCLIA [id number] [place] [id number] [place] PAP DISCLAIMER COMMENT The Pap Smear is a screening test for cervical cancer. False negative results occur with all screening tests, emphasizing the need for rescreening at recommended intervals, and clinical correlation. Normal [facility] Comment on above: Order Comment: Speci men Type: FLUID SPECIMENOrdering Facility: [facility] Address: [address] [place] [address] Performed By: #### L [id number] ####[facility] LABIA [id number] [place] [id number] [place] PAP CHEF TEACHER COMMENT This specimen has be en analyzed by the FDA-approved Chug System, which uses digital imaging and an enhanced artificial intelligence image analysis algorithm to identify conte of interest on the microscopic slide, to assist the director hematology and pathologist in evaluating cells on ThinPrep Pap tests. Following analysis, conte of interest on the microscopic slide selected by the algorithm are reviewed by a director hematology. If a sample requires hierarchical review, the pathologist will review the same conte of interest selected by the algorithm prior to final interpretation. Normal [facility] Comment on above: Order Comment: Speci men Type: FLUID SPECIMENOrdering Facility: [facility] Address: [address] [place] [address] Performed By: #### L [id number] ####[facility] LABIA [id number] [place] [id number] [place] Surgery Visit Reporton 08-10 Surgery Visit Report [facility] [address] [place] [address] OFFICE VISIT Date of Service: 08/10/25 MR#: [id number] Acct: [id number] Name: MACIE SPENCER Rep #: [id number] : 1960 Provider: Dr. Yazan evans MD Age/Sex: 64/F Location: [facility] Status: Signed Intake Vital Signs 08/05/25 14:16 Height 5 ft 3 in Weight: 145 lb BMI 25.7 BP 142/89 H Blood Pressure Location Rt brachial Position Sitting Respiration 17 Pulse 83 Pulse Source Monitor Pulse Oximetry (%) 99 Oxygen Delivery Method room air Intake Visit Reasons: LIPOMA ON ARM Chief Complaint: excision of lipomas on arm Is patient in pain?: No Allergies Iodinated Contrast Media (IV dye) Allergy (Severe, Verified 08/10/25 09:01) Anaphylaxis vancomycin Allergy (Severe, Verified 08/10/25 09:01) Anaphylaxis codeine Allergy (Mild, Verified 08/10/25 09:01) itching Medications ???Medication ???Instructions ???Recorded ???Confirmed ???Type cholecalciferol (vitamin D3) 25 25 mcg PO QDAY 08/05/25 08/10/25 H istory mcg (1,000 unit) capsule duloxetine 30 mg capsule,delayed 30 mg PO QDAY 08/05/25 08/10/25 Hi story release minoxidil 2.5 mg tablet 2.5 mg PO QDAY 08/05/25 08/10/25 H istory Have you fallen in the past year?: No PFSH Medical History H/O lipoma Asthma Emphysema lung Arthritis Osteoporosis Rosacea Depression Anxiety Surgical History (Updated 08/05/25 @ 14:15 by Katya Hernandez) Hx of tonsillectomy H/O laminectomy Family History (Updated 08/05/25 @ 14:16 by Katya Hernandez) Sister Breast cancer half sister on dad's side Sister Diabetes Mother Heart disease Hypertension Thyroid disorder Father Cancer kidney and prostate Social History (Updated 08/05/25 @ 14:16 by Katya Hernandez) household members: none Smoking Status: Never smoker alcohol intake: current alcohol intake frequency: a few times a week HPI HPI HPI: Patient presents today for procedure to remove 3 lipomatous masses from her left upper extremity Office Procedures Excision of skin Provider Documentation Provider Documentation: After obtaining informed consent, the 3 areas involving her left upper extremity were prepped and draped in the usual sterile manner. Local anesthetic was injected into each site. A #15 blade was then used to make a small 1 cm incision over each location. There were 2 lipomatous masses near the antecubital fossa. Each of these measured about 1.5 cm in size. There was a third lipoma excised from the bicep region that measured about 2.5 cm. Each incision was closed using 4-0 Vicryl and skin glue. OpSite was placed over each site as well. Alert Mery Alert Billing: Yes H/F/N/S/G 44277 1.1-2.0cm Procedure Time Out Time Out Informed consent given: Yes Consent signed: Yes Time out checklist: patient, procedure, site marked/identified, positioning of patient, supplies available, allergies confirmed and team agrees on procedure Time out staff in room: Yes Time out verified: Yes Time out date: 08/10/25 Time out time: 09:02 Assessment and Plan Assessment and Plan (1) Multiple lipomas: Status: Acute Orders: Orders Excision of Skin Today D17.9 - Benign lipomatous neoplasm, unspecified Plan The patient is a 64-year-old female status post a successful excision of 3 lipomatous masses from her left upper extremity. She tolerated this well. Follow-up will be as needed. Coding Level of Care Code Off vis,est,level 1 Diagnoses Multiple lipomas D17.9 CPT Codes H/F/N/S/G - Benign H/F/N/S/ 1.1-2.0cm (31201) Clinical Quality Measures Falls Risk Screening/Assistive Devices Have you fallen in the past year?: No 08/10/25 1016 Date Yazan Winn MD Cosigner Signature: Date (if applicable) CC: Normal [facility] Surgery Visit Reporton 08-05 Surgery Visit Report [facility] [address] [place] [address] OFFICE VISIT Date of Service: 08/05/25 MR#: [id number] Acct: [id number] Name: MACIE SPENCER Rep #: [id number] : 1960 Provider: Dr. Yazan evans MD Age/Sex: 64/F Location: [facility] Status: Signed Intake Vital Signs 08/07/24 14:28 08/05/25 14:16 Height 5 ft 3 in 5 ft 3 in Weight: 145 lb BMI 25.7 BP 142/89 H Blood Pressure Location Rt brachial Position Sitting Respiration 17 Pulse 83 Pulse Source Monitor Pulse Oximetry (%) 99 Oxygen Delivery Method room air Intake Visit Reasons: LIPOMAS Chief Complaint: lipomas Is patient in pain?: No Allergies Iodinated Contrast Media (IV dye) Allergy (Severe, Verified 08/05/25 14:17) Anaphylaxis vancomycin Allergy (Severe, Verified 08/05/25 14:17) Anaphylaxis codeine Allergy (Mild, Verified 08/05/25 14:17) itching Medications ???Medication ???Instructions ???Recorded ???Confirmed ???Type cholecalciferol (vitamin D3) 25 25 mcg PO QDAY 08/05/25 08/05/25 H istory mcg (1,000 unit) capsule duloxetine 30 mg capsule,delayed 30 mg PO QDAY 08/05/25 08/05/25 Hi story release minoxidil 2.5 mg tablet 2.5 mg PO QDAY 08/05/25 08/05/25 H istory Have you fallen in the past year?: No PFSH Medical History (Updated 08/05/25 @ 14:15 by Katya Hernandez) H/O lipoma Asthma Emphysema lung Arthritis Osteoporosis Rosacea Depression Anxiety Surgical History (Updated 08/05/25 @ 14:15 by Katya Hernandez) Hx of tonsillectomy H/O laminectomy Family History (Updated 08/05/25 @ 14:16 by Katya Hernandez) Sister Breast cancer half sister on dad's side Sister Diabetes Mother Heart disease Hypertension Thyroid disorder Father Cancer kidney and prostate Social History (Updated 08/05/25 @ 14:16 by Katya Hernandez) household members: none Smoking Status: Never smoker alcohol intake: current alcohol intake frequency: a few times a week HPI HPI HPI: The patient is a 64-year-old female who presents today with a history of multiple lipomatous masses in the past as well as current. She states that she has to superficial lipomas on the inner aspect of her left upper extremity. She also points out multiple subcutaneous masses involving her anterior thighs. She presents today to discuss possibly having these removed. She states that they are sometimes painful especially if bumped. ROS General General: No weight change, appetite, fatigue, colon cancer, breast cancer or weakness HEENT HEENT: No difficulty swallowing, eye injury, eye surgery, swollen glands or hoarseness Endo Endocrine: No thyroid disease, diabetes mellitus, thyroid cancer, Hair loss, heat intolerance or cold intolerance Skin Skin: No rash or changing moles Musc Musculoskeletal: Yes arthritis; No back problems, rheumatoid arthritis, gout or joint pain Cardio Cardiovascular: Yes murmur; No pacemaker, heart disease, atrial fibrillation, high blood pressure, heart attack, heart stent, palpitations, shortness of breath with exertion or chest pain Psych Psychiatric: Yes depression and anxiety; No hearing voices Resp Respiratory: No shortness of breath, No sleep apnea, No cough, No COPD, Yes asthma, Yes emphysema and No wheezing Gastro Gastrointestinal: No abdominal pain, No nausea or vomiting, No diarrhea, No constipation, No blood in stool, No acid reflux, No hemorrhoids, No ulcers, No gallbladder problem and No black,tarry stools Rusty Hematologic: No blood thinners, No blood disorders, No bleeding, No anemia and No blood clots Neuro Neurologic: No system reviewed and no additional complaints, except as documented, No as per HPI, No abnormal gait, No abnormal hearing, No abnormal movements, No abnormal speech, No behavioral changes, No burning sensations, No confusion, No convulsions, No disequilibrium, No dizziness, No localized weakness, No frequent falls, No headache(s), No lack of coordination, No loss of vision, No memory loss, No numbness, No other visual disturbances, No radicular pain, No restless legs, No sensory deficit, No syncope, No tingling, No tremor(s), No weakness and No other Exam Const General: cooperative, healthy appearing and comfortable [facility] Head: normal to inspection Eyes General: appearance normal, both eyes and all related structures Extrem Other: Examination of the left upper extremity reveals 2 lipomatous masses involving the proximal forearm. These are easily movable and superficial. She also has multiple lipomatous masses involving both anterior thighs. Mild tenderness with manipulation. Assessment and Plan Assessment and Plan (1) Multiple lipomas: Status: Acute Plan: The patient is a 64-year-old female with multiple lipomato (more content not included)... Normal [facility] Anion gap in Serum or Plasma Ordered By: Dank Garcia on 07-29-2025 Anion gap [Moles/Vol] 10 mmol/L 5-[address] [facility] BUN/creatinine ratioOrdered By: Dank Garcia on 07-29-2025 Urea nitrogen/Creatinine [Mass ratio] 27.5 mg/mg High 10-20 [facility] Bilirubin, totalOrdered By: Dank Garcia on 07-29-2025 Bilirubin [Mass/Vol] 0.50 mg/dL 0.00-1.30 [facility] CBC-Complete Blood Cnt No Di ffon 07-29-2025 Erythrocyte distribution width (RBC) [Ratio] 11.9 % Normal 11.6-14.6 [facility] Comment on above: Order Comment: Order Date: 07/29/25 Order Info: [id number] - CBC Performed By: #### L 100.0500, L500.4100, L500.4050 #### [facility] [address] [place], [address] Hematocrit (Bld) [Volume fraction] 40.0 % Normal 37-47 [facility] Comment on above: Order Comment: Order Date: 07/29/25 Order Info: [id number] - CBC Performed By: #### L 100.0500, L500.4100, L500.4050 #### [facility] [address] [place], [address] Hemoglobin (Bld) [Mass/Vol] 14.2 g/dL Normal 12.0-15.0 [facility] Comment on above: Order Comment: Order Date: 07/29/25 Order Info: [id number] - CBC Performed By: #### L 100.0500, L500.4100, L500.4050 #### [facility] [address] [place], [address] MCH (RBC) [Entitic mass] 32.9 pg High 27.0-32.0 [facility] Comment on above: Order Comment: Order Date: 07/29/25 Order Info: [id number] - CBC Performed By: #### L 100.0500, L500.4100, L500.4050 #### [facility] [place] [facility] [address] [place], [address] MCHC (RBC) [Mass/Vol] 35.5 g/dL Normal 32-[address] [facility] Comment on above: Order Comment: Order Date: 07/29/25 Order Info: [id number] - CBC Performed By: #### L 100.0500, L500.4100, L500.4050 #### [facility] [address] [place], [address] MCV (RBC) [Entitic vol] 92.8 fL Normal 81-99 [facility] Comment on above: Order Comment: Order Date: 07/29/25 Order Info: [id number] - CBC Performed By: #### L 100.0500, L500.4100, L500.4050 #### [facility] [address] [place], [address] Platelet mean volume (Bld) [Entitic vol] 11.0 fL Normal 6.2-12.0 [facility] Comment on above: Order Comment: Order Date: 07/29/25 Order Info: [id number] - CBC Performed By: #### L 100.0500, L500.4100, L500.4050 #### [facility] [address] [place], [address] Platelets (Bld) [#/Vol] 244 10*3/uL Normal 150-450 [facility] Comment on above: Order Comment: Order Date: 07/29/25 Order Info: [id number] - CBC Performed By: #### L 100.0500, L500.4100, L500.4050 #### [facility] [address] [place], [address] RBC (Bld) [#/Vol] 4.31 10*6/uL Normal 4.2-5.4 [facility] Comment on above: Order Comment: Order Date: 07/29/25 Order Info: [id number] - CBC Performed By: #### L 100.0500, L500.4100, L500.4050 #### [facility] [address] [place], [address] RDW SD 41.3 fl Normal 35.1-43.9 [facility] Comment on above: Order Comment: Order Date: 07/29/25 Order Info: [id number] - CBC Performed By: #### L 100.0500, L500.4100, L500.4050 #### [facility] [address] [place], [address] WBC (Bld) [#/Vol] 3.1 10*3/uL Low 4.4-11.0 [facility] Comment on above: Order Comment: Order Date: 07/29/25 Order Info: [id number] - CBC Performed By: #### L 100.0500, L500.4100, L500.4050 #### [facility] [address] [place], [address] Calculated very low density lipoprotein (VLDL) cholesterol measurementOrdered By: Dank Garcia on 07-29-2025 Calculated very low density lipoprotein (VLDL) cholesterol measurement 7 mg/dL 5-40 [facility] Carbon dioxide, total [Moles /volume] in Central venous bloodOrdered By: Dank Garcia on 07-29-2025 CO2 [Moles/Vol] 23.6 mmol/L 21.0-32.0 [facility] Chloride assayOrdered By: Sonia Garcia on 07-29-2025 Chloride [Moles/Vol] 106 mmol/L 98-108 [facility] Comprehensive Metabolic Prof ilon 07-29-2025 Albumin [Mass/Vol] 3.4 g/dL Normal 3.4-4.8 [facility] Comment on above: Order Comment: Order Date: 07/29/25 Order Info: [id number] - CMP Order Info: [id number] - LIPID Performed By: #### L 100.0500, L500.4100, L500.4050 #### [facility] [address] [place], [address] Albumin/Globulin [Mass ratio] 0.9 {ratio} Normal 0.9-2.4 [facility] Comment on above: Order Comment: Order Date: 07/29/25 Order Info: [id number] - CMP Order Info: [id number] - LIPID Performed By: #### L 100.0500, L500.4100, L500.4050 #### [facility] [address] [place], [address] ALK PHOS 60 U/L Normal 35-104 [facility] Comment on above: Order Comment: Order Date: 07/29/25 Order Info: 0786- - CMP Order Info: [id number] - LIPID Performed By: #### L 100.0500, L500.4100, L500.4050 #### [facility] [address] [place], [address] ALT [Catalytic activity/Vol] 30 U/L Normal <=34 [facility] Comment on above: Order Comment: Order Date: 07/29/25 Order Info: 0786- - CMP Order Info: [id number] - LIPID Performed By: #### L 100.0500, L500.4100, L500.4050 #### [facility] [address] [place], [address] AST [Catalytic activity/Vol] 28 U/L Normal <=31 [facility] Comment on above: Order Comment: Order Date: 07/29/25 Order Info: [id number] - CMP Order Info: [id number] - LIPID Performed By: #### L 100.0500, L500.4100, L500.4050 #### [facility] [address] [place], [address] Bilirubin [Mass/Vol] 0.50 mg/dL Normal 0.00-1.30 [facility] Comment on above: Order Comment: Order Date: 07/29/25 Order Info: [id number] - CMP Order Info: [id number] - LIPID Performed By: #### L 100.0500, L500.4100, L500.4050 #### [facility] [address] [place], [address] BUN/CRE 27.5 RATIO High 10-20 [facility] Comment on above: Order Comment: Order Date: 07/29/25 Order Info: [id number] - CMP Order Info: [id number] - LIPID Performed By: #### L 100.0500, L500.4100, L500.4050 #### [facility] [address] [place], [address] Calcium [Mass/Vol] 8.3 mg/dL Normal 7.6-11.0 [facility] Comment on above: Order Comment: Order Date: 07/29/25 Order Info: 0786 - CMP Order Info: [id number] - LIPID Performed By: #### L 100.0500, L500.4100, L500.4050 #### [facility] [address] [place], [address] Chloride [Moles/Vol] 106 mmol/L Normal 98-108 [facility] Comment on above: Order Comment: Order Date: 07/29/25 Order Info: 0786- - CMP Order Info: [id number] - LIPID Performed By: #### L 100.0500, L500.4100, L500.4050 #### [facility] [address] [place], [address] CO2 [Moles/Vol] 23.6 mmol/L Normal 21.0-32.0 [facility] Comment on above: Order Comment: Order Date: 07/29/25 Order Info: [id number] - CMP Order Info: [id number] - LIPID Performed By: #### L 100.0500, L500.4100, L500.4050 #### [facility] [address] [place], [address] Creatinine [Mass/Vol] 0.68 mg/dL Low 0.70-1.[address] [facility] Comment on above: Order Comment: Order Date: 07/29/25 Order Info: [id number] - CMP Order Info: [id number] - LIPID Performed By: #### L 100.0500, L500.4100, L500.4050 #### [facility] [address] [place], [address] GAP 10 Normal 5-15 [facility] Comment on above: Order Comment: Order Date: 07/29/25 Order Info: 0786 - CMP Order Info: [id number] - LIPID Performed By: #### L 100.0500, L500.4100, L500.4050 #### [facility] [address] [place], [address] GFR/1.73 sq M.predicted among non-blacks MDRD (S/P/Bld) [Vol rate/Area] 97 mL/min/{1.73_m2} Normal >60 [facility] Comment on above: Order Comment: Order Date: 07/29/25 Order Info: 0786 - CMP Order Info: [id number] - LIPID Result Comment: mL/m in/1.73m2 CKD-EPI Creatinine Equation (2020) Performed By: #### L 100.0500, L500.4100, L500.4050 #### [facility] [address] [place], [address] Globulin (S) [Mass/Vol] 3.7 g/dL Normal 2.2-4.2 [facility] Comment on above: Order Comment: Order Date: 07/29/25 Order Info: 0786- - CMP Order Info: [id number] - LIPID Performed By: #### L 100.0500, L500.4100, L500.4050 #### [facility] [address] [place], [address] Glucose [Mass/Vol] 91 mg/dL Normal 70-99 [facility] Comment on above: Order Comment: Order Date: 07/29/25 Order Info: [id number] - CMP Order Info: [id number] - LIPID Performed By: #### L 100.0500, L500.4100, L500.4050 #### [facility] [address] [place], [address] Potassium [Moles/Vol] 4.4 mmol/L Normal 3.3-5.[address] [facility] Comment on above: Order Comment: Order Date: 07/29/25 Order Info: [id number] - CMP Order Info: [id number] - LIPID Performed By: #### L 100.0500, L500.4100, L500.4050 #### [facility] [address] [place], [address] Sodium [Moles/Vol] 140 mmol/L Normal 133-145 [facility] Comment on above: Order Comment: Order Date: 07/29/25 Order Info: [id number] - CMP Order Info: [id number] - LIPID Performed By: #### L 100.0500, L500.4100, L500.4050 #### [facility] [address] [place], [address] T PROT 7.1 g/dL Normal 5.9-8.4 [facility] Comment on above: Order Comment: Order Date: 07/29/25 Order Info: [id number] - CMP Order Info: [id number] - LIPID Performed By: #### L 100.0500, L500.4100, L500.4050 #### [facility] [address] [place], [address] Urea nitrogen [Mass/Vol] 19 mg/dL Normal 4-19 [facility] Comment on above: Order Comment: Order Date: 07/29/25 Order Info: [id number] - CMP Order Info: [id number] - LIPID Performed By: #### L 100.0500, L500.4100, L500.4050 #### [facility] [address] [place], [address] Erythrocyte distribution wid th ratioOrdered By: Dank Garcia on 07-29-2025 Erythrocyte distribution width (RBC) [Ratio] 11.9 % 11.6-14.6 [facility] Erythrocyte distribution wid th standard deviationOrdered By: Dank Garcia on 07-29-2025 Erythrocyte distribution width (RBC) [Ratio] 41.3 fl 35.1-43.9 [facility] Glomerular filtration rate ( GFR) estimation/1.73 sq m using serum, plasma, or whole bOrdered By: Dank Garcia on 07-29-2025 GFR/1.73 sq M.predicted among non-blacks MDRD (S/P/Bld) [Vol rate/Area] 97 mL/min/{1.73_m2} >60 [facility] Comment on above: mL/min/1.73m2 CKD-EP I Creatinine Equation (2020) Hematocrit Auto (Bld) [Volum e fraction]Ordered By: Dank Garcia on 07-29-2025 Hematocrit (Bld) [Volume fraction] 40.0 % 37-47 [facility] Hemoglobin measurementOrdere d By: Dank Garcia on 07-29-2025 Hemoglobin (Bld) [Mass/Vol] 14.2 g/dL 12.0-15.0 [facility] LDL calc ser/plasOrdered By: Dank Garcia on 07-29-2025 Cholesterol in LDL [Mass/Vol] 125 mg/dL [facility] Comment on above: Vaylairwft=512-591 m g/dL & Higher Ukvp=894 mg/dL or greaterFriedwald Equation for LDL-C Laboratory - Chemistry and C hemistry - challengeOrdered By: Dank Garcia on 07-29-2025 AST [Catalytic activity/Vol] 28 U/L <32 [facility] Lipid Profileon 07-29-2025 CHOL:HDL 3.50 Normal [facility] Comment on above: Order Comment: Order Date: 07/29/25 Order Info: 0786-1 - CMP Order Info: [id number] - LIPID Performed By: #### L 100.0500, L500.4100, L500.4050 #### [facility] [address] [place], [address] Cholesterol [Mass/Vol] 186 mg/dL Normal <=200 [facility] Comment on above: Order Comment: Order Date: 07/29/25 Order Info: 0786-1 - CMP Order Info: [id number] - LIPID Result Comment: Chol esterol level, Desirable <200 mg/dL Borderline high cholesterol 200-239 mg/dL High cholesterol >=240 mg/dL Recommendations of the NCEP Adult Treatment Panel for the following risk-cutoff thresholds for the [place] population. Performed By: #### L 100.0500, L500.4100, L500.4050 #### [facility] [address] [place], [address] Cholesterol in HDL [Mass/Vol] 53 mg/dL Normal [facility] Comment on above: Order Comment: Order Date: 07/29/25 Order Info: 0786 - [facility] Order Info: [id number] - LIPID Result Comment: Shraddha onal Cholesterol Education Program (NCEP) guidelines: <40 mg/dL: Low HDL-cholesterol (major risk factor for CHD) >= 60 mg/dL: High HDL-cholesterol (negative risk factor for CHD) HDL-cholesterol is affected by a number of factors, e.g. smoking, exercise, hormones, sex and age. Performed By: #### L 100.0500, L500.4100, L500.4050 #### [facility] [address] [place], [address] Cholesterol in LDL [Mass/Vol] 125 mg/dL Normal [facility] Comment on above: Order Comment: Order Date: 07/29/25 Order Info: 0786-1 - CMP Order Info: [id number] - LIPID Result Comment: Bord xbvcef=859-463 mg/dL Higher Nrgt=264 mg/dL or greater Friedwald Equation for LDL-C Performed By: #### L 100.0500, L500.4100, L500.4050 #### [facility] [address] [place], [address] Cholesterol in VLDL [Mass/Vol] 7 mg/dL Normal 5-40 [facility] Comment on above: Order Comment: Order Date: 07/29/25 Order Info: 0786-1 - CMP Order Info: [id number] - LIPID Performed By: #### L 100.0500, L500.4100, L500.4050 #### [facility] [address] [place], [place], [id number] Triglyceride [Mass/Vol] 37 mg/dL Normal [facility] Comment on above: Order Comment: Order Date: 07/29/25 Order Info: 0786-1 - CMP Order Info: [id number] - LIPID Result Comment: The drugs N-Acetylcysteine and Metamizole may falsely depress this assay. Normal range: <150 mg/dL Borderline High: 150-199 mg/dL High: 200-499 mg/dL Very High: >500 mg/dL Performed By: #### L 100.0500, L500.4100, L500.4050 #### [facility] [address] [place], [place], [id number] MCV (mean corpuscular volume ) determinationOrdered By: Dank Garcia on 07-29-2025 MCV (RBC) [Entitic vol] 92.8 fL 81-99 [facility] Mean corpuscular hemoglobin (MCH) determinationOrdered By: Dank Garcia on 07-29-2025 MCH (RBC) [Entitic mass] 32.9 pg High 27.0-32.0 [facility] Mean corpuscular hemoglobin concentration (MCHC) determinationOrdered By: Dank Garcia on 07-29-2025 MCHC (RBC) [Mass/Vol] 35.5 g/dL 32-[address] [facility] Mean platelet volume determi nationOrdered By: Dank Garcia on 07-29-2025 Platelet mean volume (Bld) [Entitic vol] 11.0 fL 6.2-12.0 [facility] Platelet countOrdered By: Sonia Garcia on 07-29-2025 Platelets (Bld) [#/Vol] 244 10*3/uL 150-450 [facility] Potassium measurement (mass/ volume)Ordered By: Dank Garcia on 07-29-2025 Potassium (Unsp spec) [Mass/Vol] 4.4 mmol/L 3.3-5.1 [facility] RBC Auto (Bld) [#/Vol]Ordere d By: Dank Garcia on 07-29-2025 RBC (Bld) [#/Vol] 4.31 10*6/uL 4.2-5.4 [facility] Screening total cholesterol/ high density lipoprotein (HDL) cholesterol ratioOrdered By: Dank Garcia on 07-29-2025 Cholesterol.total/Cho lesterol in HDL [Mass ratio] 3.50 {ratio} [facility] Serum creatinine measurement (mass/volume)Ordered By: Dank Garcia on 07-29-2025 Creatinine [Mass/Vol] 0.68 mg/dL Low 0.70-1.[address] [facility] Serum globulin measurementOr dered By: Dank Garcia on 07-29-2025 Globulin (S) [Mass/Vol] 3.7 g/dL 2.2-4.2 [facility] Serum glucose measurement (m ass/volume)Ordered By: Dank Garcia on 07-29-2025 Glucose [Mass/Vol] 91 mg/dL 70-99 [facility] Serum or plasma alanine hodge otransferase (ALT) measurementOrdered By: Dank Garcia on 07-29-2025 ALT [Catalytic activity/Vol] 30 U/L <35 [facility] Serum or plasma albumin yousif urement (mass/volume)Ordered By: Dank Garcia on 07-29-2025 Albumin [Mass/Vol] 3.4 g/dL 3.4-4.8 [facility] [place] Serum or plasma albumin/glob ulin mass ratioOrdered By: Dank Garcia on 07-29-2025 Albumin/Globulin [Mass ratio] 0.9 {ratio} 0.9-2.4 [facility] Serum or plasma alkaline tiffanie sphatase measurementOrdered By: Dank Garcia on 07-29-2025 ALP [Catalytic activity/Vol] 60 U/L 35-104 [facility] Serum or plasma calcium yousif urement (mass/volume)Ordered By: Dank Garcia on 07-29-2025 Calcium [Mass/Vol] 8.3 mg/dL 7.6-11.0 [facility] [place] Serum or plasma cholesterol in HDL measurement (mass/volume)Ordered By: Dank Garcia on 07-29-2025 Cholesterol in HDL [Mass/Vol] 53 mg/dL >40 [facility] Comment on above: National Cholesterol Education Program (NCEP) guidelines:<40 mg/dL: Low HDL-cholesterol (major risk factor for CHD)>= 60 mg/dL: High HDL-cholesterol (negative risk factor for CHD)HDL-cholesterol is affected by a number of factors, e.g. smoking, exercise, hormones, sex and age. Serum or plasma cholesterol measurement (mass/volume)Ordered By: Dank Garcia on 07-29-2025 Cholesterol [Mass/Vol] 186 mg/dL <201 [facility] Comment on above: Cholesterol level, D esirable <200 mg/dLBorderline high cholesterol 200-239 mg/dLHigh cholesterol >=240 mg/dLRecommendations of the NCEP Adult Treatment Panel for the following risk-cutoff thresholds for the [place] population. Serum or plasma urea nitroge n measurement (mass/volume)Ordered By: Dank Garcia on 07-29-2025 Urea nitrogen [Mass/Vol] 19 mg/dL 4-19 [facility] Sodium levelOrdered By: Ryan Garcia on 07-29-2025 Sodium [Moles/Vol] 140 mmol/L 133-145 [facility] Total proteinOrdered By: Grace Garcia on 07-29-2025 Protein [Mass/Vol] 7.1 g/dL 5.9-8.4 [facility] Triglycerides measurementOrd ered By: Dank Garcia on 07-29-2025 Triglyceride [Mass/Vol] 37 mg/dL <199 [facility] Comment on above: The drugs N-Acetylcy steine and Metamizole may falsely depress this assay. Normal range: <150 mg/dLBorderline High: 150-199 mg/dLHigh: 200-499 mg/dLVery High: >500 mg/dL Vitamin D,25 Hydroxyon 07-29 Vitamin D 25-OH 30.3 ng/mL Normal 30-100 [facility] Comment on above: Order Comment: Order Date: 07/29/25 Order Info: [id number] - CMP Order Info: [id number] - LIPID Result Comment: Jaz min D Status Deficiency: <20 ng/mL (50nmol/L) Insufficiency: 20-30 ng/mL (50-75 nmol/L) Sufficiency: 30-100 ng/mL (75-250 nmol/L) Toxicity: >100 ng/mL (>250 nmol/L) Performed By: #### L 506.1001 #### [facility] [address] [place], [address] White blood cell (WBC) count Ordered By: Dank Garcia on 07-29-2025 WBC (Bld) [#/Vol] 3.1 10*3/uL Low 4.4-11.0 [facility] CNOVon 02-08-2025 CNOV Office Visit (OBGYWM ) MACIE SPENCER ([id number]) 1960 F Date Time Provider Department 02/08/25 2:45 PM NEHAL BARRIGA OBREHANWDerek During your visit today, we recorded the following information about you: Blood pressure Weight 128/84 73.5 kg Nehal Barriga APRN.IMPLEMENTATION PROJECT MANAGER 02/08/2025 3:20 PM Signed Macie Spencer is a 64 year old female who presents for problem visit hair loss for 3 month(s), seen PCP Dr. Garcia Rx minoxidil. HPI: pt states that the hair loss started after she came back from [place] and she stopped her Cymbalta. Her PCP ordered minoxidil daily. She is taking biotin daily. 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 - minoxidil (LONITEN) 2.5 mg tablet Take 1 tablet by mouth once daily. - naphazoline HCl/pheniramine (OPCON-A OPHTHALMIC) Use in eyes. - CETIRIZINE HCL (ZYRTEC ORAL) Take by mouth. Proble (more content not included)... Normal [facility] T3 SerPl-mCncon 02-08-2025 T3 [Mass/Vol] 102 ng/dL Normal 79-165 [facility] [place] Comment on above: Order Comment: Speci men Type: BLOOD SPECIMENOrdering Facility: [facility] Address: [address] [place] [address] Performed By: #### 3 016-3, 3024-7, 6 ####[facility] [id number] [place] [address] [place] T4 Free SerPl-mCncon 025 Free T4 [Mass/Vol] 1.4 ng/dL Normal 0.9-1.7 [facility] Comment on above: Order Comment: Speci men Type: BLOOD SPECIMENOrdering Facility: [facility] Address: [address] [place] [address] Performed By: #### 3 016-3, 7, 3053-04 ####[facility] [id number] [address] [place] THYROID PEROXIDASE ANTIBODYo n 02-08-2025 Interpretation and review of laboratory results Normal [facility] TPO Ab Qn NINF [facility] Comment on above: Thyroid Peroxidase A ntibody test is used as an aid in diagnosis of autoimmune thyroid disease. Clinical correlation is required. [facility] TPO Ab Qn [IU]/mL Normal <5.6 [facility] Comment on above: Order Comment: Speci men Type: BLOOD SPECIMENOrdering Facility: [facility] Address: [address] [place] [address] Result Comment: Thyr oid Peroxidase Antibody test is used as an aid in diagnosis of autoimmune thyroid disease. Clinical correlation is required. Performed By: #### M ICRO ####[facility] [id number] [place] [address] [place] TSH SerPl-aCncon 02-08-2025 TSH Qn 1.590 m[IU]/L Normal 0.270-4.20 0 [facility] Comment on above: Order Comment: Speci men Type: BLOOD SPECIMENOrdering Facility: [facility] Address: [address] [place] [address] Performed By: #### 3 016-3, 7, 3053-04 ####[facility] [id number] [address] OF [facility] Isaiah 01-27-2025 CNPN Telephone (INTMWS) MACIE SPENCER ([id number]) 1960 F Date Time Provider Department 01/27/25 KAVON PINEDO INTMWS During your visit today, we recorded the following information about you: Jesus Lawler RN 01/27/2025 9:06 AM Signed Patient calls to [...] but patient reports she is established with [facility]. Asked patient if she plans to follow with Dr. Pinedo as PCP or [facility] and patient reports [facility]. Directed patient to contact [facility] with questions regarding hair loss. Removed PCP per patient preference. Nothing further needed. Closing TE. Jesus Lawler RN Allergies As of Date: 01/27/2025 Noted Allergy Reaction IODIXANOL 04/27/2022 10 - Anaphylaxis IV DYE (IODINATED CONTRAST MEDIA) 11/07/2016 10 - Anaphylaxis VANCOMYCIN 11/07/2016 10 - Anaphylaxis CODEINE 11/07/2016 2 - Rash Date Reviewed: 09/29/2024 Reviewed by: Rosetta Landin, EXTERNAL GRINDER TENDER.IMPLEMENTATION PROJECT MANAGER - Fully Assessed Reason for Visit: Patient Question [9156] Prescriptions as of 01/27/2025 - doxycycline monohydrate [...] Status:Closed by JESUS LAWLER on 01/27/25 Normal [facility] Alpha Antitrypsin Serumon ALPHA1 ANTITRYP 137 mg/dL Normal 101-187 [facility] Comment on above: Order Comment: Order Date: 12/27/24 Order Info: [id number] - AA Result Comment: Perf ormed at: CB - [facility] [address] [id number] Medical Billing And Coding Specialist: Ovidio Cullen PhD, Phone: [phone] Performed By: #### L 3900.2100 #### [facility] [address] [place] [address], [address] Alpha 1 antitrypsin [Mass/Vo l]Ordered By: Dank Garcia on 12-27-2024 Rxrhq-9-Catlhvabmsg 137 mg/dL 101-187 [facility] Comment on above: Performed at: CB - [facility] [address] [id number] Director: Ovidio Cullen PhD, Phone: [phone] Chest PA and Lateralon 12-23 Chest PA and Lateral [facility] [address] [place] [address] Chest PA and Lateral MR#: [id number] Acct: [id number] Name: MACIE SPENCER Rep #: [id number] : 1960 F 64 From: Cheng Boudreaux i DO PCP: Dr. Dank Garcia MD Status: REG CLI Study: Chest PA and Lateral Date of Exam: 12/23/24 Exam# [id number] Ordering Dr: Dank Garcia MD PROCEDURE: PA [...] spine. RAD/Chest PA and Lateral IMPRESSION: Pulmonary hyperinflation/emphysem a. No acute cardiopulmonary process is demonstrated. If there are persistent symptoms or clinical concern, short-term follow-up chest CT evaluation may be considered. Reading Location: [facility] CC: Dr. Dank Garcia MD Cloth Inspector: Signed Normal [facility] 10-25-2024 [facility] Telephone ([facility]ITALTau TherapeuticsWS) MACIE SPENCER ([id number]) 1960 F Date Time Provider Department 10/25/24 KAVON PINEDO [facility] During your visit today, we recorded the following information about you: Elise Keys LPN 10/25/2024 11:27 AM Signed Pt calls to report on 10/23 she woke up to petechiae on left forearm. On 10/24 petechiae had moved up to left shoulder and there were a few on right shoulder. Pt reports she went to [facility] in [place], [place]. Pt reports labs were done and [...] not taking Cymbalta. Records request faxed to [facility] @ [phone]. Pt reports she is going to send a picture of petechiae through . Please review and advise. NATHAN Gage Joy, APRN.IMPLEMENTATION PROJECT MANAGER 10/28/2024 7:50 AM Signed Petechia can also appear from high elevation changes like in the [employer]. If she has no other concerns, then [...] any other concerns. Take care Ivonne Falk APRN.Marysol Barbosa LPN 10/28/2024 12:42 PM Signed left message [...] Date Reviewed: 09/29/2024 Reviewed by: Rosetta Landin, SATISH.IMPLEMENTATION PROJECT MANAGER - Fully Assessed Reason for Visit: Bleeding/Bruising [...] Encounter Status:Closed by ELISE KEYS [facility]27/[facility] Telephone (INTMWS) MACIE SPENCER ([id number]) 1960 F Date Time Provider Department 10/12/24 KAVON PINEDO INTDerekWS During your visit today, we recorded the following information about you: Sun Evans LPN 10/12/2024 3:38 PM Signed Rec'd via mail courier. Pt dropped off [employer] annual physical and biometric exam form. Rosetta [...] Date Reviewed: 09/29/2024 Reviewed by: Rosetta Landin APRN.IMPLEMENTATION PROJECT MANAGER - Fully Assessed Reason for Visit: Forms [...] Encounter Status:Closed by SUN EVANS on 10/12/24 [facility] RYOVon 09-29-2024 CNOV Office Visit (INTMWS ) MACIE SPENCER ([id number]) 1960 F Date Time Provider Department 09/29/24 9:00 AM ROSETTA LANDIN INTMWS During your visit today, we recorded the following information about you: Pulse Blood pressure Weight Height 84/minute 118/88 72 kg 1.607 m Rosetta Landin APRN.IMPLEMENTATION PROJECT MANAGER 09/29/2024 9:41 AM Signed CC: Patient presents with: Physical HPI Macie Spencer is a 63 year old female [...] ICD9: 30 (more content not included)... Normal [facility] LIPOPROTEIN FRACTIONATION BY NMR WITH LIPIDSon 09-09-2024 Cholesterol [Mass/Vol] 218 mg/dL High <=199 [facility] Comment on above: Order Comment: Speci men Type: BLOOD SPECIMENOrdering Facility: [facility] Address: [address] [place] [address] Performed By: #### N MRLPD ####[facility] LABORATORIESCLIA [id number] [place] [address] Cholesterol in HDL [Mass/Vol] 53 mg/dL Normal 40-59 [facility] Comment on above: Order Comment: Speci men Type: BLOOD SPECIMENOrdering Facility: [facility] Address: [facility] [place] [address] Performed By: #### N MRLPD ####[facility] LABORATORIESCLIA [id number] [place] [address] EER LIPOFIT BY NMR See Note Normal [facility] Comment on above: Order Comment: Speci men Type: BLOOD SPECIMENOrdering Facility: [facility] Address: [address] [place] [address] Result Comment: Auth orized individuals can access the [employer] Enhanced Report using the following link: [email or web address] INTERPRETIVE INFORMATION: LipoFit by NMR This test was developed and its performance characteristics determined by [facility]. It has not been cleared or approved by the US Food and Drug Administration. This test was performed in a CLIA certified laboratory and is intended for clinical purposes. Performed By: [facility] [address] [place] [address] Single Pointed Operator: Piter Medina MD, PhD CLIA Number: [id number] Performed By: #### N MRLPD ####[facility] LABORATORIESCLIA [id number] [place] [address] HDL PARTICLE NUMBER, NMR 35.8 umol/L Normal >=33.0 [facility] Comment on above: Order Comment: Speci men Type: BLOOD SPECIMENOrdering Facility: [facility] Address: [address] [place] [address] Result Comment: INTE RPRETIVE INFORMATION: HDL Particle Number, NMR Percentiles in Reference Population: 25th 50th 75th 29.7 33.0 36.8 Performed By: #### N MRLPD ####[facility]IESCLIA [id number] [place] [address] HDL PARTICLE SIZE, NMR 8.6 nm Low >=8.9 [facility] Comment on above: Order Comment: Speci men Type: BLOOD SPECIMENOrdering Facility: [facility] Address: [address] [place] [address] Result Comment: INTE RPRETIVE INFORMATION: HDL Particle Size, NMR Percentiles in Reference Population: 25th 50th 75th 8.6 8.9 9.3 Performed By: #### N MRLPD ####[facility] meQuilibriumADONAYIA [id number] [place] [address] LARGE HDL PARTICLE NUMBER, NMR 3.2 umol/L Low >=4.2 [facility] Comment on above: Order Comment: Speci men Type: BLOOD SPECIMENOrdering Facility: [facility] Address: [address] [place] [address] Result Comment: INTE RPRETIVE INFORMATION: Large HDL Particle Number, NMR Percentiles in Reference Population: 25th 50th 75th 2.0 4.2 7.3 Performed By: #### N MRLPD ####[facility] CAMPUSADONAYIA [id number] [place] [address] LARGE VLDL PARTICLE NUMBER, NMR 2.1 nmol/L Normal <=2.7 [facility] Comment on above: Order Comment: Speci men Type: BLOOD SPECIMENOrdering Facility: [facility] Address: [address] [place] [address] Result Comment: INTE RPRETIVE INFORMATION: Large VLDL Particle Number, NMR Percentiles in Reference Population: 25th 50th 75th 0.9 2.7 7.0 Performed By: #### N MRLPD ####[facility] CAMPUSCLIA [id number] [place] [address] LDL CHOL CALCULATED 153 mg/dL High <=129 [facility] Comment on above: Order Comment: Speci men Type: BLOOD SPECIMENOrdering Facility: [facility] Address: [address] [place] [address] Performed By: #### N MRLPD ####[facility]ORATORIESCLIA [id number] [place] [address] LDL PARTICLE NUMBER, NMR 1356 nmol/L High <=1135 [facility] Comment on above: Order Comment: Speci men Type: BLOOD SPECIMENOrdering Facility: [facility] Address: [address] [place] [address] Result Comment: REFE RENCE INTERVAL: LDL Particle [...] (80th percentile). Performed By: #### N MRLPD ####[facility] LABORATORIESCLIA [id number] [place] [address] LDL PARTICLE SIZE, NMR 21.2 nm Normal >=20.7 [facility] Comment on above: Order Comment: Speci men Type: BLOOD SPECIMENOrdering Facility: [facility] Address: [address] [place] [address] Result Comment: INTE RPRETIVE INFORMATION: LDL Particle Size, NMR Percentiles in Reference Population: 25th 50th 75th 19.6 20.7 22.5 Performed By: #### N MRLPD ####[facility]ORATORIESCLIA [id number] [place] [address] SMALL LDL PARTICLE NUMBER, NMR 539 nmol/L Normal <=634 [facility] Comment on above: Order Comment: Speci men Type: BLOOD SPECIMENOrdering Facility: [facility] Address: [address] [place] [address] Result Comment: INTE RPRETIVE INFORMATION: Small LDL Particle Number, NMR Percentiles in Reference Population: 25th 50th 75th [phone] Performed By: #### N MRLPD ####[facility]OR[facility]IESCLIA [id number] [place] [address] Triglyceride [Mass/Vol] 62 mg/dL Normal 30-149 [facility] Comment on above: Order Comment: Speci men Type: BLOOD SPECIMENOrdering Facility: [facility] Address: [address] [place] [address] Performed By: #### N MRLPD ####[facility]ORATORIESCLIA [id number] [place] [address] VLDL PARTICLE SIZE, NMR 46.7 nm Normal <=46.7 [facility] Comment on above: Order Comment: Speci men Type: BLOOD SPECIMENOrdering Facility: [facility] Address: [address] [place] [address] Result Comment: INTE RPRETIVE INFORMATION: VLDL Particle Size, NMR Percentiles in Reference Population: 25th 50th 75th 44.3 46.7 50.2 Performed By: #### N MRLPD ####[facility] LABORATORIESCLIA [id number] [place] [address] CNOVon 09-06-2024 CNOV Office Visit (OBGYWM ) MACIE SPENCER ([id number]) 1960 F Date Time Provider Department 09/06/24 1:40 PM SHANNON GUERRERO OBELIEL During your visit today, we recorded the following information about you: Blood pressure Weight 126/80 72.1 kg Shannon Guerrero MD 09/06/2024 5:07 PM Signed Hoisting Laborer offered: Patient declinesBebe Quijano is a 63 year old Female who [...] weeks. Repeat pap yearly Shannon Guerrero MD [place], [place] 09/06/2024 1:27 PM Signed YOUR RECOVERY It [...] your doctor's office. Referring Provider: NEHAL BARRIGA [[id number]] Allergies As of Date: 09/06/2024 Noted Allergy Reaction IODIXANOL 04/27/2022 10 - Anaphylaxis IV DYE (IODINATED CONTRAST MEDIA) 11/07/2016 10 - Anaphylaxis VANCOMYCIN 11/07/2016 10 - Anaphyl (more content not included)... Normal [facility] CBC W Auto Differential pane l (Bld)on 08-24-2024 Basophils (Bld) [#/Vol] NINF [facility] Basophils/100 WBC (Bld) 0.1 % [facility] Differential cell count method Nom (Bld) Auto [facility] Eosinophils (Bld) [#/Vol] NINF [facility] Eosinophils/100 WBC (Bld) 0.3 % [facility] Erythrocyte distribution width (RBC) [Ratio] 13.4 % 11.5 - 15.0 % [facility] Hematocrit (Bld) [Volume fraction] 41.5 % 36.0 - 46.0 % [facility] Hemoglobin (Bld) [Mass/Vol] 13.8 g/dL 11.5 - 15.5 g/dL [facility] Immature granulocytes (Bld) [#/Vol] 0.07 10*3/uL [facility] Immature granulocytes/100 WBC (Bld) 1.0 % [facility] Lymphocytes (Bld) [#/Vol] 1.02 10*3/uL [facility] Lymphocytes/100 WBC (Bld) 14.1 % [facility] [facility] MCH (RBC) [Entitic mass] 31.9 pg 26.0 - 34.0 pg [facility] MCHC (RBC) [Mass/Vol] 33.3 g/dL 30.5 - 36.0 g/dL [facility] MCV (RBC) [Entitic vol] 96.1 fL 80.0 - 100.0 fL [facility] Monocytes (Bld) [#/Vol] 0.47 10*3/uL [facility] Monocytes/100 WBC (Bld) 6.5 % [facility] Neutrophils (Bld) [#/Vol] 5.66 10*3/uL [facility] Neutrophils/100 WBC (Bld) 78.0 % [facility] Nucleated RBC (Bld) [#/Vol] [facility] Nucleated RBC/100 WBC (Bld) [Ratio] 0.0 % /100 WBC [facility] Platelet mean volume (Bld) [Entitic vol] 10.2 fL 9.0 - 12.7 fL [facility] Platelets (Bld) [#/Vol] 302 10*3/uL [facility] RBC (Bld) [#/Vol] 4.32 10*6/uL 3.90 - 5.20 m/uL [facility] WBC (Bld) [#/Vol] 7.25 10*3/uL [facility] ic ESR Westergren method (Bld) [Velocity]on 08-24-2024 ESR (Bld) [Velocity] 21 mm/h High [facility] Interpretation and review of laboratory results Abnormal [facility] ic FOLATE, SERUMon 08-24-2024 Folate [Mass/Vol] 10.1 ng/mL 4.7 - PINF ng/mL [facility] GGTon 08-24-2024 Gamma glutamyl transferase [Catalytic activity/Vol] 35 U/L 6 - 46 U/L [facility] HIGH SENSITIVITY C-REACTIVE PROTEINon 08-24-2024 CRP High sensitivity method [Mass/Vol] 0.3 mg/L NINF - 3.1 mg/L [facility] Comment on above: hsCRP < 1.0 mg/L, [...] for Disease Control and Prevention and the [place] [employer]. Circulation 2003;107:499-511. MAGNESIUMon 08-24-2024 Magnesium [Mass/Vol] 2.3 mg/dL 1.7 - 2 .3 mg/dL [facility] No Panel Informationon 08-24 [facility] ic Interpretation and review of laboratory results Normal [facility] Interpretation and review of laboratory results Normal [facility] ic URIC ACIDon 08-24-2024 Urate [Mass/Vol] 2.3 mg/dL Low 2.5 - 6.6 mg/dL [facility] Urate [Mass/Vol]on Interpretation and review of laboratory results Abnormal [facility] VITAMIN B12on 08-24-2024 Cobalamin (Vitamin B12) [Mass/Vol] 457 pg/mL 232 - 1245 pg/mL [facility] CBC W Auto Differential pane l (Bld)on 08-05-2024 Basophils (Bld) [#/Vol] [facility] Basophils/100 WBC (Bld) 0.3 % [facility] Differential cell count method Nom (Bld) Auto [facility] Eosinophils (Bld) [#/Vol] 0.11 10*3/uL [facility] Eosinophils/100 WBC (Bld) 1.6 % [facility] Erythrocyte distribution width (RBC) [Ratio] 13.3 % 11.5 - 15.0 % [facility] Hematocrit (Bld) [Volume fraction] 41.2 % 36.0 - 46.0 % [facility] Hemoglobin (Bld) [Mass/Vol] 13.8 g/dL 11.5 - 15.5 g/dL [facility] Immature granulocytes (Bld) [#/Vol] [facility] Immature granulocytes/100 WBC (Bld) 0.3 % [facility] Interpretation and review of laboratory results Abnormal [facility] Lymphocytes (Bld) [#/Vol] 0.99 10*3/uL Low [facility] Lymphocytes/100 WBC (Bld) 14.6 % [facility] MCH (RBC) [Entitic mass] 31.9 pg 26.0 - 34.0 pg [facility] MCHC (RBC) [Mass/Vol] 33.5 g/dL 30.5 - 36.0 g/dL [facility] MCV (RBC) [Entitic vol] 95.2 fL 80.0 - 100.0 fL [facility] Monocytes (Bld) [#/Vol] 0.60 10*3/uL [facility] Monocytes/100 WBC (Bld) 8.9 % [facility] Neutrophils (Bld) [#/Vol] 5.03 10*3/uL [facility] Neutrophils/100 WBC (Bld) 74.3 % [facility] Nucleated RBC (Bld) [#/Vol] [facility] Nucleated RBC/100 WBC (Bld) [Ratio] 0.0 % /100 WBC [facility] Platelet mean volume (Bld) [Entitic vol] 10.5 fL 9.0 - 12.7 fL [facility] Platelets (Bld) [#/Vol] 246 10*3/uL [facility] RBC (Bld) [#/Vol] 4.33 10*6/uL 3.90 - 5.20 m/uL [facility] WBC (Bld) [#/Vol] 6.77 10*3/uL [facility] ic ESR Westergren method (Bld) [Velocity]on 08-05-2024 ESR (Bld) [Velocity] 37 mm/h High [facility] Interpretation and review of laboratory results Abnormal [facility] ic XR Chest PA and Lateralon IMPRESSION: No acute radiographic abnormality. Cloth [facility] Transcribe Date/Time: Aug 05 2024 11:55A Dictated by : CHADWICK VELOZ MD This examination was interpreted and the report reviewed and electronically signed by: CHADWICK VELOZ MD on Aug 05 2024 11:56AM [facility] DIVISION OF RADIOLOGY * * *Final Report* [...] shows degenerative changes. DIVISION OF RADIOLOGY Provider, [facility] - 08/05/2024 * * *Final Report* * [...] changes. IMPRESSION IMPRESSION: No acute radiographic abnormality. Cloth Inspector: PEG Transcribe Date/Time: Aug 05 2024 11:55A Dictated by : CHADWICK VELOZ MD This examination was interpreted and the report reviewed and electronically signed by: CHADWICK VELOZ MD on Aug 05 2024 11:56AM [facility] Radiology Study observation (narrative) [facility] XR Chest PA and LateralOrder ed By: Ccf Provider on 08-05-2024 [facility] Colonoscopy Study observatio non 06-11-2024 Jose Cruz [facility] Gastrointestinal Endoscopy Patient Name: Macie Spencer Procedure Date: 06/11/2024 9:06 AM Date of : 1960 Admit Type: Outpatient Age: 63 Gender: Female Note Status: Finalized Procedure: Colonoscopy Indications: Screening for colorectal malignant neoplasm Providers: Dipak Wu MD Patient Profile: This is a 63 [...] physician PRN. Procedure Code(s): --- Professional --- 93695, Colonoscopy, flexible; with biopsy, single or multiple G0500, Moderate sedation services provided by the same physician or other qualified health daycare teacher performing a gastrointestinal endoscopic service that sedation supports, requiring the presence of an independent trained observer to assist in the monitoring of the patient's level of consciousness and physiological (more content not included)... [employer] [facility] Radiology Study observation (narrative) [facility] DIAG W DANIEL BILATon -0 [facility] US BREAST LTD LTon 07-05 [facility] SCREENINGon 06-21-2022 [facility] CBC panel Auto (Bld)on 06-11 Erythrocyte distribution width (RBC) [Ratio] 13.2 % 11.5 - 15.0 % [facility] Hematocrit (Bld) [Volume fraction] 39.2 % 36.0 - 46.0 % [facility] Hemoglobin (Bld) [Mass/Vol] 13.0 g/dL 11.5 - 15.5 g/dL [facility] MCH (RBC) [Entitic mass] 31.3 pg 26.0 - 34.0 pg [facility] MCHC (RBC)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 Start: 01-27-2018 Patient encounter Daniel Carneyn Rafael F acility:[id number] Start: 01-22-2018 Patient encounter Daniel Carneyn Rafael F acility:[id number] Start: 01-20-2018 Patient encounter Daniel Hall F acility:[id number] Start: 01-15-2018 Patient encounter Daniel Hall F acility:[id number] Start: 01-13-2018 Patient encounter Daniel Hall F acility:[id number] Start: 01-06-2018 Patient encounter Daniel Hall F acility:[id number] Start: 01-01-2018 Patient encounter Daniel Hall F acility:[id number] Start: 12-30-2017 Patient encounter Daniel Hall F acility:[id number] Start: 12-25-2017 Patient encounter Daniel Hall F acility:[id number] Start: 12-23-2017 Patient encounter Daniel Hall F acility:[id number] Start: 12-16-2017 Patient encounter Daniel Hall F acility:[id number] Start: 12-11-2017 Patient encounter Daniel Hall F acility:[id number] Start: 12-09-2017 Patient encounter Daniel Hall F acility:[id number] Start: 12-04-2017 Patient encounter Daniel Hall F acility:[id number] Start: 12-02-2017 Patient encounter Daniel Carneyn Rafael F acility:[id number] Start: 11-28-2017 Patient encounter Daniel Carneyn Rafael F acility:[id number] Start: 11-20-2017 Patient encounter Daniel Martell acility:[id number] Start: 10-16-2017 Ambulatory [facility] Start: 09-05-2017 Patient encounter Domenico maki Facility:[facility] Gabriela [place] Start: 08-27-2017 Ambulatory [facility] Start: 07-31-2017 Ambulatory [facility] Start: 08-07-2015 End: 11-23-2015 Preprocedural examination done Nilsa Velasco MD Work Phone: [facility] Encounter for other preprocedural examination Provider System [facility] Procedures Date Procedure Procedure Detail Performing Clinician Start: 07-29-2025 Vitamin D, 25-hydrox y measurement Dank Garcia MD Work Phone: Comment on above: Vitamin D StatusDefi ciency: <20 ng/mL (50nmol/L)Insufficiency: 20-30 ng/mL (50-75 nmol/L)Sufficiency: 30-100 ng/mL (75-250 nmol/L)Toxicity: >100 ng/mL (>250 nmol/L) Start: 12-23-2024 X-ray of chest, PA a nd lateral views Dank Garcia MD Work Phone: Start: 08-05-2024 Radiologic exam ches t 2 views Kavon Pinedo MD Work Phone: Start: 06-11-2024 Colonoscopy flx dx w /collj spec when pfrmd Rosetta ChanelRaffi EXTERNAL GRINDER TENDER.IMPLEMENTATION PROJECT MANAGER Work Phone: Start: 06-11-2024 Colonoscopy Dipak woods MD Work Phone: Start: 09-30-2023 Lipid 1996 panel - S renetta or Plasma Rosetta Deya EXTERNAL GRINDER TENDER.IMPLEMENTATION PROJECT MANAGER Work Phone: Start: 07-05-2022 End: 07-05-2022 Digital breast tomosynthesis bilateral Nehal Norfolk EXTERNAL GRINDER TENDER.IMPLEMENTATION PROJECT MANAGER Work Phone: Start: 07-05-2022 Us breast uni real t nico with image limited Nehal Norfolk EXTERNAL GRINDER TENDER.IMPLEMENTATION PROJECT MANAGER Work Phone: Start: 06-21-2022 End: 06-21-2022 Screening [...] Rosado Work Phone: Start: 10-05-2020 Mammography Genesis Rosina al Start: 09-26-2020 12 lead ECG Bridgett carrasco Work Phone: Start: 02-18-2019 12 lead ECG Choco Kim Work Phone: Start: 08-12-2018 End: 08-12-2018 MM COMPARISON IMPORT External Transcribe d Start: 09-03-2017 Mammography Afua Mckeon Start: 07-31-2017 Mammography Kavon Spivey MD Work Phone: Start: 10-25-2015 Microscopic observat ion [Identifier] in Cervix by Cyto stain Afua Mike Start: 05-18-2014 Colonoscopy Bridgett milan Plan of Treatment Date Care Activity Detail Author Start: 2034 RSV Vaccine (1 - 1-d ose 75+ series) RSV Vaccine (1 - 1-dose 75+ series) [facility] Start: 06-11-2034 Screening for malign ant neoplasm of colon [facility] Start: 04-27-2032 Administration of diphtheria + tetanus + acellular pertussis vaccine DTAP/TDAP/TD VACCINE (2 - Td or Tdap) [facility] Start: 04-27-2032 Tetanus vaccination Tetanus: Every 1 0yrs [facility] Start: 04-27-2032 Urine microalbumin profile [facility] Start: 09-30-2028 Lipid 1996 panel - S renetta or Plasma Lipid Screening [facility] Start: 09-30-2028 Lipid panel Lipid Screening [facility] Start: 06-24-2028 HPV TESTING HPV TESTING [facility] Start: 06-24-2028 PAP TESTING PAP TESTING [facility] Start: 08-24-2027 Diabetes Screening Diabetes Screenin g [facility] Start: 08-05-2027 Diabetes Screening Diabetes Screenin g [facility] Start: 06-21-2027 HPV TESTING HPV TESTING [facility] Start: 06-21-2027 PAP TESTING PAP TESTING [facility] Start: 06-11-2027 Lipid 1996 panel - S renetta or Plasma Lipid Screening [facility] Start: 06-11-2027 LIPID SCREEN LIPID SCREEN [facility] Start: 10-03-2026 Diabetes Screening Diabetes Screenin g [facility] Start: 09-30-2026 Diabetes Screening Diabetes Screenin g [facility] Start: 09-30-2025 End: 09-30-2025 Patient encounter procedure 09/30/2025 8:00 AM EST Office Visit Internal Medicine Jose Cruz [address] [place] [address] Rosetta Landin, EXTERNAL GRINDER TENDER.IMPLEMENTATION PROJECT MANAGER [address] [place], [place] [id number] physical Internal Medicine Jose Cruz Comment on above: physical Start: 08-30-2025 End: 08-30-2025 Patient encounter procedure Mammogram Comment on above: Encounter for screen ing mammogram for breast cancer [Z12.31] Annual Start: 08-27-2025 Screening for malign ant neoplasm of breast Mammogram Screening [facility] Start: 08-26-2025 End: 08-26-2025 Patient encounter procedure 08/26/2025 8:30 AM EDT Appointment Mammogram [address] [place] [address] Encounter for screening mammogram for breast cancer [Z12.31] Mammogram Comment on above: Encounter for screen ing mammogram for breast cancer [Z12.31] Start: 08-25-2025 End: 08-25-2025 Patient encounter procedure 08/25/2025 11:00 AM EDT Office Visit OB/Gynecology [address] [place] [address] Nehal Barriga APRN.IMPLEMENTATION PROJECT MANAGER [address] [place] [address] Annual OB/Gynecology Comment on above: Annual Start: 08-23-2025 Screening for malign ant neoplasm of cervix Cervical Cancer Screening [facility] Start: 08-05-2025 Covid-19 Vaccine () Covid-19 Vaccine () [facility] Comment on above: Postponed from 07/04 (Declined at this time) Start: 06-11-2025 DIABETES SCREEN DIABETES SCREEN [facility] Start: 06-11-2025 Diabetes Screening Diabetes Screenin g [facility] Start: 05-17-2025 Tetanus vaccination [facility] Start: 05-02-2025 Influenza vaccination Influenza Vacc ine (#1) [facility] Comment on above: Postponed from 07/04 (Declined at this time) Start: 05-01-2025 DIABETES SCREEN DIABETES SCREEN [facility] Start: 03-23-2025 Covid-19 Vaccine () Covid-19 Vaccine () [facility] Start: 02-08-2025 End: 05-10-2025 Thyrotropin [Units/volume] in Serum or Plasma [facility] Work Phone: Comment on above: Expected: 02/08/2025 , Expires: 05/10/2025 Start: 02-08-2025 End: 05-10-2025 Thyroxine (T4) free [Mass/volume] in Serum or Plasma [facility] Comment on above: Expected: 02/08/2025 , Expires: 05/10/2025 Start: 02-08-2025 End: 05-10-2025 Triiodothyronine (T3) [Mass/volume] in Serum or Plasma [facility] Comment on above: Expected: 02/08/2025 , Expires: 05/10/2025 Start: 2024 Advance Directive Discussion Advance Directive Discussion [facility] Start: 11-24-2024 End: 11-24-2024 Patient encounter procedure 11/24/2024 10:15 AM EST Office Visit Functional Medicine [address] [address] Avril Danielson, EXTERNAL GRINDER TENDER.IMPLEMENTATION PROJECT MANAGER [address] [address] 3 month fuv Functional Medicine Comment on above: 3 month fuv Start: 10-01-2024 RSV Vaccine (1 - 1-d ose 60+ series) RSV Vaccine (1 - 1-dose 60+ series) [facility] Comment on above: Postponed from 12/17 (Declined at this time) Start: 09-29-2024 End: 09-29-2024 Patient encounter procedure 09/29/2024 9:00 AM EST Office Visit Internal Medicine Jose Cruz [address] [place], [place] [id number] Rosetta Landin, EXTERNAL GRINDER TENDER.IMPLEMENTATION PROJECT MANAGER [address] [place], [place] [address] physical Internal Medicine [place] Comment on above: physical Start: 09-27-2024 End: 12-27-2024 Basic metabolic 2000 panel - Serum or Plasma BASIC METABOLIC PANEL Lab Routine Alteration in metabolic function Chronic fatigue, unspecified Other chronic pain Expected: 09/27/2024, Expires: 12/27/2024 [facility] Work Phone: Comment on above: Expected: 09/27/2024 , Expires: 12/27/2024 Start: 09-27-2024 End: 12-27-2024 Insulin [Units/volume] in Serum or Plasma INSULIN ASSAY BLOOD Lab Routine Alteration in metabolic function Chronic fatigue, unspecified Other chronic pain Expected: 09/27/2024, Expires: 12/27/2024 [facility] Comment on above: Expected: 09/27/2024 , Expires: 12/27/2024 Start: 09-27-2024 End: 12-27-2024 LIPOPROTEIN FRACTIONATION BY NMR WITH LIPIDS LIPOPROTEIN FRACTIONATION BY NMR WITH LIPIDS Lab Routine Alteration in metabolic function Chronic fatigue, unspecified Other chronic pain Expected: 09/27/2024, Expires: 12/27/2024 [facility] Comment on above: Expected: 09/27/2024 , Expires: 12/27/2024 Start: 09-06-2024 End: 09-06-2024 Patient encounter procedure 09/06/2024 1:40 PM EST Office Visit OB/Gynecology [address] [place] [address] Shannon Guerrero MD [address] [place] [address] Colposcopy OB/Gynecology Comment on above: Colposcopy Start: 09-01-2024 End: 12-01-2024 LIPOPROTEIN FRACTIONATION BY NMR WITH LIPIDS LIPOPROTEIN FRACTIONATION BY NMR WITH LIPIDS Lab Routine Alteration in metabolic function Expected: 09/01/2024, Expires: 12/01/2024 [facility] Work Phone: Comment on above: Expected: 09/01/2024 , Expires: 12/01/2024 Start: 08-27-2024 End: 08-27-2024 Patient encounter procedure 08/27/2024 9:40 AM EDT Office Visit Internal Medicine Jose Cruz [address] [place] [address] Kavon Pinedo MD [address] [facility] [address] 3 wk follow up Internal Medicine Jose Cruz Comment on above: 3 wk follow up Start: 08-27-2024 End: 08-27-2024 Patient encounter procedure 08/27/2024 8:30 AM EDT Appointment Mammogram [address] [place] [address] daniel screening mammo Mammogram Comment on above: daniel screening mammo Start: 08-24-2024 End: 11-23-2024 25-hydroxyvitamin D3 [Mass/volume] in Serum or Plasma [facility] Comment on above: Expected: 08/24/2024 , Expires: 11/23/2024 Start: 08-24-2024 End: 11-23-2024 COPPER BLOOD [facility] Comment on above: Expected: 08/24/2024 , Expires: 11/23/2024 Start: 08-24-2024 End: 11-23-2024 Ferritin [Mass/volume] in Serum or Plasma [facility] Comment on above: Expected: 08/24/2024 , Expires: 11/23/2024 Start: 08-24-2024 End: 11-23-2024 Hemoglobin A1c in Blood [facility] Comment on above: Expected: 08/24/2024 , Expires: 11/23/2024 Start: 08-24-2024 End: 11-23-2024 Hepatic function 2000 panel - Serum or Plasma [facility] Comment on above: Expected: 08/24/2024 , Expires: 11/23/2024 Start: 08-24-2024 End: 11-23-2024 Homocysteine [Moles/volume] in Serum or Plasma [facility] Comment on above: Expected: 08/24/2024 , Expires: 11/23/2024 Start: 08-24-2024 End: 11-23-2024 Iron and Iron binding capacity panel - Serum or Plasma [facility] Comment on above: Expected: 08/24/2024 , Expires: 11/23/2024 Start: 08-24-2024 End: 11-23-2024 OMEGACHECK [facility] Comment on above: Expected: 08/24/2024 , Expires: 11/23/2024 Start: 08-24-2024 End: 11-23-2024 THYROGLOBULIN ANTIBODY [facility] Comment on above: Expected: 08/24/2024 , Expires: 11/23/2024 Start: 08-24-2024 End: 11-23-2024 Thyrotropin [Units/volume] in Serum or Plasma [facility] Comment on above: Expected: 08/24/2024 , Expires: 11/23/2024 Start: 08-24-2024 End: 11-23-2024 Thyroxine (T4) free [Mass/volume] in Serum or Plasma [facility] Comment on above: Expected: 08/24/2024 , Expires: 11/23/2024 Start: 08-24-2024 End: 11-23-2024 Transferrin [Mass/volume] in Serum or Plasma [facility] Comment on above: Expected: 08/24/2024 , Expires: 11/23/2024 Start: 08-24-2024 End: 11-23-2024 Triiodothyronine (T3) Free [Mass/volume] in Serum or Plasma [facility] Comment on above: Expected: 08/24/2024 , Expires: 11/23/2024 Start: 08-24-2024 End: 11-23-2024 VITAMIN B1 (THIAMINE), WHOLE BLOOD [facility] Comment on above: Expected: 08/24/2024 , Expires: 11/23/2024 Start: 08-24-2024 End: 11-23-2024 Zinc [Mass/volume] in Serum or Plasma [facility] Comment on above: Expected: 08/24/2024 , Expires: 11/23/2024 Start: 08-24-2024 End: 08-24-2024 ambulatory 08/24/2024 11:30 AM EDT Education Functional Medicine [address] [address] [facility] [address] [address] health head golf coach Functional Medicine Comment on above: health head golf coach Start: 08-24-2024 End: 08-24-2024 FQHC visit new patient 08/24/2024 10:30 AM EDT Education Functional Medicine [address] [place] [address] new patient Functional Medicine Comment on above: new patient Start: 08-24-2024 End: 08-24-2024 ambulatory 08/24/2024 9:15 AM EDT Results Only [facility] [address] [place] [phone] fm lab [facility] Comment on above: fm lab Start: 08-24-2024 End: 08-24-2024 Patient encounter procedure 08/24/2024 9:00 AM EDT Office Visit Functional Medicine [address] [address] Avril Danielson APRN.IMPLEMENTATION PROJECT MANAGER [address] [address] new patient Functional Medicine Comment on above: new patient Start: 08-23-2024 End: 08-23-2024 Patient encounter procedure 08/23/2024 11:00 AM EDT Office Visit OB/Gynecology [address] [place] [address] Nehal Barriga APRN.IMPLEMENTATION PROJECT MANAGER [address] [facility] [place] [address] annual OB/Gynecology Comment on above: annual Start: 08-05-2024 End: 11-04-2024 C reactive protein [Mass/volume] in Serum or Plasma [facility] Comment on above: Expected: 08/05/2024 , Expires: 11/04/2024 Start: 08-05-2024 End: 11-04-2024 Comprehensive metabolic 2000 panel - Serum or Plasma [facility] Comment on above: Expected: 08/05/2024 , Expires: 11/04/2024 Start: 08-05-2024 End: 11-04-2024 Lactate dehydrogenase [Enzymatic activity/volume] in Serum or Plasma [facility] Comment on above: Expected: 08/05/2024 , Expires: 11/04/2024 Start: 07-30-2024 Mammography Mammogram Screening [facility] Start: 07-30-2024 Screening for malign ant neoplasm of breast Mammogram Screening [facility] Start: 07-04-2024 Covid-19 Vaccine ( season) Covid-19 Vaccine () [facility] Start: 07-04-2024 Influenza vaccination Influenza Vacc ine (#1) [facility] Start: 06-24-2024 Screening for malign ant neoplasm of cervix Cervical Cancer Screening [facility] Start: 06-11-2024 End: 06-11-2024 Patient encounter procedure 06/11/2024 9:30 AM EDT Appointment Ambulatory Surgery [address] [place], [place] [id number] Dipak Wu MD [address] [place], [place] [id number] Ambulatory Surgery Start: 05-18-2024 Colonoscopy COLONOSCOPY [facility] Start: 05-18-2024 COLORECTAL CANCER SCREENING COLORECTAL CANCER SCREENING [facility] Start: 05-18-2024 Screening colonoscopy [facility]COPY [facility] Start: 05-18-2024 Screening for malign ant neoplasm of colon [facility] Start: 10-01-2023 End: 12-31-2023 Hemoglobin A1c in Blood HGB A1C Lab Routine Hyperglycemia Expected: 10/01/2023, Expires: 12/31/2023 [facility] Work Phone: Comment on above: Expected: 10/01/2023 , Expires: 12/31/2023 Start: 09-29-2023 End: 12-29-2023 CBC W Auto Differential panel - Blood CBC + DIFF Lab Routine Abnormal CBC Expected: 09/29/2023, Expires: 12/29/2023 [facility] Work Phone: Comment on above: Expected: 09/29/2023 , Expires: 12/29/2023 Start: 09-29-2023 End: 12-29-2023 Comprehensive metabolic 2000 panel - Serum or Plasma COMP METABOLIC PANEL Lab Routine Screening for diabetes mellitus Expected: 09/29/2023, Expires: 12/29/2023 [facility] Work Phone: Comment on above: Expected: 09/29/2023 , Expires: 12/29/2023 Start: 09-29-2023 End: 12-29-2023 Lipid 1996 panel - Serum or Plasma LIPID PANEL BASIC Lab Routine Screening for lipid disorders Expected: 09/29/2023, Expires: 12/29/2023 [facility] Work Phone: Comment on above: Expected: 09/29/2023 , Expires: 12/29/2023 Start: 07-05-2023 Mammography MAMMOGRAM [facility] Start: 07-04-2023 Covid-19 Vaccine ( season) Covid-19 Vaccine ( season) [facility] Start: 07-04-2023 Influenza vaccination [facility] Start: 06-21-2023 Mammography MAMMOGRAM [facility] Start: 01-27-2023 9vhpv vacc 2/3 dose sched im use HUMAN PAPILLOMAVIRUS 9-VALENT HPV IM Immunization/Injection Routine ASCUS with positive high risk HPV cervical Need for prophylactic vaccination/inoculation against viral disease Expected: 01/27/2023 (Approximate) [facility] Work Phone: Comment on above: Expected: 01/27/2023 (Approximate) Start: 11-20-2022 Depression Remission Assessment (PHQ9) Depression Remission Assessment (PHQ9) [facility] Start: 09-29-2022 9vhpv vacc 2/3 dose sched im use HUMAN PAPILLOMAVIRUS 9-VALENT HPV IM Immunization/Injection Routine ASCUS with positive high risk HPV cervical Need for prophylactic vaccination/inoculation against viral disease Expected: 09/29/2022 (Approximate) [facility] Work Phone: Comment on above: Expected: 09/29/2022 (Approximate) Start: 07-04-2022 Influenza vaccination [facility] Start: 07-04-2022 Influenza vaccinatio n given INFLUENZA VACCINE (Season Ended) [facility] Start: 06-17-2022 COVID-19 VACCINE (4 - Booster for Pfizer series) COVID-19 VACCINE (4 - Booster for Pfizer series) [facility] Start: 06-11-2022 End: 08-11-2022 Comprehensive metabolic 2000 panel - Serum or Plasma [facility] Work Phone: Comment on above: Expected: 06/11/2022 , Expires: 08/11/2022 Start: 06-11-2022 End: 08-11-2022 HIV 1+2 Ab [Presence] in Serum or Plasma by Immunoassay [facility] Work Phone: Comment on above: Expected: 06/11/2022 , Expires: 08/11/2022 Start: 06-11-2022 End: 08-11-2022 Lipase [Enzymatic activity/volume] in Serum or Plasma [facility] Work Phone: Comment on above: Expected: 06/11/2022 , Expires: 08/11/2022 Start: 06-11-2022 End: 08-11-2022 Lipid 1996 panel - Serum or Plasma [facility] Work Phone: Comment on above: Expected: 06/11/2022 , Expires: 08/11/2022 Start: 04-12-2022 COVID-19 VACCINE (5 - Booster for Pfizer series) COVID-19 VACCINE (5 - Booster for Pfizer series) [facility] Start: 10-29-2021 Administration of he rpes zoster vaccine Zoster Vaccines (2 of 2) [facility] Start: 10-29-2021 SHINGRIX VACCINE (2 of 2) SESAY GRIX VACCINE (2 of 2) [facility] Start: 10-05-2021 Screening for malign ant neoplasm of breast Mammogram [facility] Start: 10-05-2021 Screening mammography Mammogram [facility] Start: 07-04-2021 Influenza vaccination Sequenti al Influenza Vaccine (#1) [facility] Start: 10-25-2020 Screening for malign ant neoplasm of cervix PAP SMEAR [facility] Start: 10-02-2020 End: 10-02-2020 Office Visit 10/02/2020 Office Visit Lab Bravo Isidro MD [address] [place] [address] [phone] COVID Assessment [facility] Start: 07-04-2020 Influenza vaccination Sequenti al Influenza Vaccine (#1) [facility] Start: 07-04-2020 Influenza vaccinatio n given Sequential Influenza Vaccine (#1) [facility] Start: 06-09-2020 LIPID SCREEN LIPID SCREEN [facility] Start: 2019 RSV Vaccine (1 - 1-d ose 60+ series) RSV Vaccine (1 - 1-dose 60+ series) [facility] Start: 10-13-2019 End: 10-13-2019 Office Visit 10/13/2019 Office Visit Primary Care [facility] Start: 10-25-2018 Screening for malign ant neoplasm of cervix Pap Smear [facility] Start: 09-03-2018 Protein mass conc [facility] Start: 09-03-2018 Screening mammography MAMMOGRAM [facility] Start: 09-02-2018 End: 09-02-2018 Ambulatory 09/02/2018 Appointment Radiology Kelsey Solorzano MD [address] [place] [address] [phone] [facility] Start: 07-31-2018 Mammography MAMMOGRAM [facility] Start: 07-04-2018 Influenza vaccination SEQUENTI AL INFLUENZA VACCINE (#1) [facility] Start: 12-04-2017 HPV TESTING HPV TESTING [facility] Start: 12-04-2017 PAP TESTING PAP TESTING [facility] Start: 10-25-2016 History and physical examination, annual for health maintenance Wellness Visit [facility] Start: 2009 Administration of he rpes zoster vaccine Zoster Vaccines (1 of 2) [facility] Start: 2009 Pneumococcal Vaccine : 50+ (1 of 1 - PCV) Pneumococcal Vaccine: 50+ (1 of 1 - PCV) [facility] Start: 2009 Screening for malign ant neoplasm of colon [facility] Start: 2009 Zoster vaccine hzv l juarez for subcutaneous use ZOSTER (SHINGLES) VACCINE (1 of 2) [facility] Start: 2004 COLOGUARD (FIT-DNA) COLOGUARD (FIT-D NA) [facility] Start: [address] COLONOGRAPHY [facility] Start: 2004 FECAL OCCULT BLOOD FECAL OCCULT BLOO D [facility] Start: 2004 Screening for malign ant neoplasm of colon [facility] Start: 2004 SIGMOIDOSCOPY SIGMOIDOSCOPY [facility] Start: 1999 Screening mammography MAMMOGRAM [facility] Start: 1980 Screening for malign ant neoplasm of cervix PAP SMEAR [facility] Start: 1977 ANNUAL WELLNESS VISIT ANNUAL WELLNES S VISIT [facility] Start: 1977 HIV SCREENING HIV SCREENING [facility] Start: 1975 COVID-19 Vaccine (1 of 2) COVI D-19 Vaccine (1 of 2) [facility] Start: 1975 COVID-19 Vaccine (1) COVID-19 Vaccin e (1) [facility] Start: 1971 COVID-19 Vaccine (1) COVID-19 Vaccin e (1) [facility] Start: 1971 Depression screening using PHQ-9 (Patient Health Questionnaire 9) score DEPRESSION SCREENING [facility] Start: 1964 COVID-19 VACCINE (1) COVID-19 VACCIN E (1) [facility] Start: 1962 History and physical examination, annual for health maintenance Wellness Visit [facility] Start: 1959 Depression screening using PHQ-9 (Patient Health Questionnaire 9) score DEPRESSION SCREENING (PHQ9) [facility] Start: 1959 Hepatitis C screening HEPATITIS C SC REENING [facility] Start: 1959 Screening for malign ant neoplasm of colon [facility] 9vhpv vacc 2/3 dose sched im use HUMAN PAPILLOMAVIRUS 9-VALENT HPV IM Immunization/Injection Routine ASCUS with positive high risk HPV cervical Need for prophylactic vaccination/inoculation against viral disease Ordered: 07/31/2022 [facility] Work Phone: Comment on above: Ordered: 07/31/2022 End: 09-26-2021 Basic metabolic 2000 panel Basic Metabolic Panel Lab Routine Trigger finger of right thumb Encounter for preadmission testing 1 Occurrences starting 09/26/2020 until 09/26/2021 [facility] Comment on above: 1 Occurrences starti ng 09/26/2020 until 09/26/2021 Basic metabolic 2000 panel Basic Metabolic Panel Lab Routine Trigger finger of right thumb Encounter for preadmission testing 09/26/2020 10:40 AM EST [facility] Basic metabolic 2000 panel - Serum or Plasma BASIC METABOLIC PANEL Lab Routine Alteration in metabolic function Chronic fatigue, unspecified Other chronic pain 08/24/2024 10:19 AM EDT [facility] COLPOSCOPY COLPOSCOPY Proce dures Routine Atypical squamous cell changes of undetermined significance (ASCUS) on cervical cytology with positive high risk human papilloma virus (HPV) Ordered: 07/01/2022 [facility] Work Phone: Comment on above: Ordered: 07/01/2022 COLPOSCOPY COLPOSCOPY Proce dures Routine Cervical high risk HPV (human papillomavirus) test positive Ordered: 08/30/2024 [facility] Work Phone: Comment on above: Ordered: 08/30/2024 COLPOSCOPY COLPOSCOPY Proce dures Routine Cervical high risk human papillomavirus (HPV) DNA test positive Ordered: 09/06/2024 [facility] Work Phone: Comment on above: Ordered: 09/06/2024 End: 09-26-2021 Complete blood count (hemogram) panel - Blood by Automated count CBC Lab Routine Trigger finger of right thumb Encounter for preadmission testing 1 Occurrences starting 09/26/2020 until 09/26/2021 [facility] Comment on above: 1 Occurrences starti ng 09/26/2020 until 09/26/2021 Complete blood count (hemogram) panel - Blood by Automated count CBC Lab Routine Trigger finger of right thumb Encounter for preadmission testing 09/26/2020 10:40 AM EST [facility] End: 02-10-2020 Comprehensive metabolic 2000 panel Comprehensive Metabolic Panel Routine Encounter for preadmission testing 1 Occurrences starting 02/09/2019 until 02/10/2020 [facility] Comment on above: 1 Occurrences starti ng 02/09/2019 until 02/10/2020 Comprehensive metabo lic 2000 panel Comprehensive Metabolic Panel Routine Encounter for preadmission testing 02/09/2019 10:25 AM EDT [facility] End: 09-04-2025 DBT Breast - bilateral screening [facility]FAEL SCREENING W DANIEL Radiology Routine Encounter for screening mammogram for malignant neoplasm of breast 1 Occurrences starting 08/05/2024 until 09/04/2025 [facility] Work Phone: Comment on above: 1 Occurrences starti ng 08/05/2024 until 09/04/2025 End: 09-22-2025 DBT Breast - bilateral screening RAFAEL SCREENING W DANIEL Radiology Routine Encounter for gynecological examination (general) (routine) without abnormal findings Encounter for screening mammogram for breast cancer 1 Occurrences starting 08/23/2024 until 09/22/2025 [facility] Work Phone: Comment on above: 1 Occurrences starti ng 08/23/2024 until 09/22/2025 DBT Breast - bilater al screening RAFAEL SCREENING W DANIEL Radiology Routine Encounter for screening mammogram for malignant neoplasm of breast 08/27/2024 8:48 AM EDT [facility] Work Phone: End: 07-27-2023 Diagnostic mammography computer-aided detcj bi [facility] DIAGNOSTIC BILAT Radiology Routine Abnormal mammogram 1 Occurrences starting 06/27/2022 until 07/27/2023 [facility] Work Phone: Comment on above: 1 Occurrences starti ng 06/27/2022 until 07/27/2023 End: 10-30-2024 DXA-AXIAL SKELETON DXA-AXIAL SKELETON Radiology Routine Encounter for screening for osteoporosis Loss of height 1 Occurrences starting 10/01/2023 until 10/30/2024 [facility] Work Phone: Comment on above: 1 Occurrences starti ng 10/01/2023 until 10/30/2024 Insulin [Units/volum e] in Serum or Plasma INSULIN ASSAY BLOOD Lab Routine Alteration in metabolic function Chronic fatigue, unspecified Other chronic pain 08/24/2024 10:19 AM [facility] End: 09-26-2021 Lipid 1996 panel Lipid Panel Lab Routine Screening for hyperlipidemia 1 Occurrences starting 09/26/2020 until 09/26/2021 [facility] Comment on above: 1 Occurrences starti ng 09/26/2020 until 09/26/2021 Lipid 1996 panel Lipid Panel Lab Routine Screening for hyperlipidemia 09/26/2020 10:40 AM EST [facility] End: 07-10-2019 Lipid panel Lipid Panel Routine Lipid screening 1 Occurrences starting 07/10/2018 until 07/10/2019 [facility] Comment on above: 1 Occurrences starti ng 07/10/2018 until 07/10/2019 LIPOPROTEIN FRACTION ATION BY NMR WITH LIPIDS LIPOPROTEIN FRACTIONATION BY NMR WITH LIPIDS Lab Routine Alteration in metabolic function Chronic fatigue, unspecified Other chronic pain 08/24/2024 10:19 AM [facility] End: 09-10-2019 MG Breast - bilateral screening Mammography Screening Bilateral Routine Screening for breast cancer 1 Occurrences starting 07/10/2018 until 09/10/2019 [facility] Comment on above: 1 Occurrences starti ng 07/10/2018 until 09/10/2019 End: 11-27-2021 MG Breast - bilateral screening Mammography Screening Bilateral Imaging Routine Encounter For Screening For Malignant Neoplasm Of Breast, Unspecified Screening Modality 1 Occurrences starting 09/26/2020 until 11/27/2021 [facility] Comment on above: 1 Occurrences starti ng 09/26/2020 until 11/27/2021 End: 03-21-2023 MG Breast - bilateral Screening Mammography Screening Bilateral Imaging Routine Screening breast examination 1 Occurrences starting 01/18/2022 until 03/21/2023 [facility] Work Phone: Comment on above: 1 Occurrences starti ng 01/18/2022 until 03/21/2023 PAP FLUID CERVICAL SCREENING PAP FLUID CERVICAL SCREENING Lab Routine Encounter for screening for human papillomavirus (HPV) Pap smear for cervical cancer screening 06/21/2022 9:04 AM EDT [facility] Work Phone: PAP TEST PAP TEST Lab Rou miguel Encounter for gynecological examination (general) (routine) without abnormal findings Screening for cervical cancer Encounter for screening for human papillomavirus (HPV) Pap smear for cervical cancer screening Ordered: 08/23/2024 [facility] Comment on above: Ordered: 08/23/2024 Pulse Oximetry, Continuous Pulse Oximetry, Continuous Respiratory Care STAT Continuous until discontinued starting 04/27/2022 [facility] Work Phone: Comment on above: Continuous until dis continued starting 04/27/2022 End: 05-04-2025 Screening colonoscopy COLONOSCOPY SCREENING Endoscopy Routine Screening for colon cancer 1 Occurrences starting 05/04/2024 until 05/04/2025 [facility] Work Phone: Comment on above: 1 Occurrences starti ng 05/04/2024 until 05/04/2025 End: 07-10-2023 Screening mammography bi 2-view breast inc cad RAFAEL SCREENING Radiology Routine Encounter for screening mammogram for malignant neoplasm of breast 1 Occurrences starting 06/10/2022 until 07/10/2023 [facility] Work Phone: Comment on above: 1 Occurrences starti ng 06/10/2022 until 07/10/2023 End: 07-21-2023 Screening mammography bi 2-view breast inc cad RAFAEL SCREENING Radiology Routine Encounter for screening mammogram for breast cancer 1 Occurrences starting 06/21/2022 until 07/21/2023 [facility] Work Phone: Comment on above: 1 Occurrences starti ng 06/21/2022 until 07/21/2023 SURGICAL PATHOLOGY SURGICAL PATH OLOGY Lab Routine ASCUS with positive high risk HPV cervical Ordered: 07/31/2022 [facility] Work Phone: Comment on above: Ordered: 07/31/2022 SURGICAL PATHOLOGY [facility] Work Phone: Comment on above: Release Upon Orderin g for 1 Occurrences starting 06/11/2024, 1 completed Therapeutic prophylactic/dx injection subq/im THER/PROPH/DIAG INJ, SC/IM Procedures Routine ASCUS with positive high risk HPV cervical Need for prophylactic vaccination/inoculation against viral disease Ordered: 07/31/2022 [facility] Work Phone: Comment on above: Ordered: 07/31/2022 End: 04-27-2022 Toxicology screen, urine Toxicology screen, urine Lab STAT One Time for 1 Occurrences starting 04/27/2022 until 04/27/2022 [facility] Comment on above: One Time for 1 Occur rences starting 04/27/2022 until 04/27/2022 End: 07-10-2019 TSH with Reflex Free T4 TSH with Reflex Free T4 Routine Hair loss 1 Occurrences starting 07/10/2018 until 07/10/2019 [facility] Comment on above: 1 Occurrences starti ng 07/10/2018 until 07/10/2019 End: 04-27-2022 Urinalysis with reflex culture Urinalysis with reflex culture Lab ROGER One Time for 1 Occurrences starting 04/27/2022 until 04/27/2022 [facility] Comment on above: One Time for 1 Occur rences starting 04/27/2022 until 04/27/2022 End: 07-27-2023 Us breast uni real time with image limited [facility] Work Phone: Comment on above: 1 Occurrences starti ng 06/27/2022 until 07/27/[address] [facility] Immunizations Immunization Date Immunization Notes Care Provider [facility] 09-01-2023 influenza, seasonal, injectable Rosetta Older EXTERNAL GRINDER TENDER.IMPLEMENTATION PROJECT MANAGER Work Phone: [facility] Work Phone: 09-01-2023 influenza virus vaccine, unspecified formulation Rosetta Raffi EXTERNAL GRINDER TENDER.IMPLEMENTATION PROJECT MANAGER Work Phone: [facility] 02-18-2023 Human Papillomavirus 9-valent vaccine Veronica Allred MD Work Phone: [facility] Work Phone: 10-02-2022 Human Papillomavirus 9-valent vaccine Nurse Wstr Work Phone: [facility] 08-02-2022 Human Papillomavirus 9-valent vaccine Nurse Wstr Work Phone: [facility] 07-31-2022 Influenza, injectabl e, Madin Prabha Canine Kidney, quadrivalent with preservative Kavon Pinedo MD Work Phone: [facility] Work Phone: 07-31-2022 influenza virus vaccine, unspecified formulation Mammography Coordinator [facility] 06-17-2022 zoster vaccine recombinant Kamini Villanueva MD Work Phone: [facility] Work Phone: 04-27-2022 tetanus toxoid, reduced diphtheria toxoid, and acellular pertussis vaccine, adsorbed Marilia Haney MD Work Phone: [facility] 02-15-2022 COVID-19 original vaccine, age 12+ yr, monovalent (PFIZER-BIONTAgent Ace - SPENCER TOP) Kamini Villanueva MD Work Phone: [facility] Work Phone: 02-15-2022 Pfizer SARS-CoV-2 Vaccination Bridgett Rosado MD Work Phone: [facility] 09-03-2021 influenza, injectabl e, quadrivalent, preservative free Bridgett Rosado MD Work Phone: [facility] 09-03-2021 zoster vaccine recombinant Bridgett Rosado MD Work Phone: [facility] 01-29-2021 Pfizer SARS-CoV-2 Vaccination Bridgett Rosado MD Work Phone: [facility] 01-08-2021 Pfizer SARS-CoV-2 Vaccination Bridgett Rosado MD Work Phone: [facility] 07-05-2020 influenza, injectabl e, quadrivalent, preservative free Bridgett Rosado MD Work Phone: [facility] 08-27-2019 Seasonal, quadrivalent, recombinant, injectable influenza vaccine, preservative free Bridgett Rosado MD Work Phone: [facility] 08-27-2018 influenza, seasonal, injectable, preservative free Kavon Pinedo MD Work Phone: [facility] Work Phone: 08-27-2018 seasonal influenza, intradermal, preservative free Afua Venious [facility] 07-24-2017 influenza, injectabl e, quadrivalent, contains preservative [facility] 08-29-2016 influenza, injectabl e, quadrivalent, contains preservative Opal [facility] 08-29-2016 influenza, injectabl e, quadrivalent, preservative free Opal [facility] 08-07-2015 influenza, injectabl e, quadrivalent, preservative free; Translations: [INFLUENZA IIV4 3YO OR > FLUARIX/FLUZONE/AFLURI A 30854] [facility] 05-17-2015 tetanus toxoid, reduced diphtheria toxoid, and acellular pertussis vaccine, adsorbed; Translations: [TDAP] [facility] NEGATED: Highlighted row has not occurred!07-31-2022 Human Papillomavirus 9-valent vaccine Kamini Villanueva MD Work Phone: [facility] Work Phone: Payers Date Payer Category Payer Self-pay 2024 Private Health Insurance [id number] 2021 Private Health Insurance [employer] [address] [place] [address] [id number] [facility] [employer] xxxxxxxxxxxx 2018-Present [id number] [facility] [employer] [id number] 2018-Present [id number] 2018 Unknown [id number] 2018 Unknown [id number] 2016 Private Health Insurance 1960 Unknown [id number] 1959 Unknown [id number] 1959 Unknown [id number] 1959 Unknown [id number] Private Health Insurance [id number] Unknown [id number] Unknown [id number] Unknown [id number] Unknown [id number] Unknown [id number] Unknown [id number] Social History Date Type Detail Facility Start: 07-10-2018 End: 08-05-2025 Tobacco smoking status IAIS Never smoker [facility] Start: 1960 Sex Assigned At Not on file [facility] Start: 10-25-2015 Alcohol Comment 1 glass of wine per night [facility] Start: 10-11-2019 End: 02-08-2025 Alcohol intake Current drinker of alcohol (finding) [facility] Start: 10-11-2019 End: 05-23-2022 History SDOH Alcohol Frequency 5 [facility] Start: 10-11-2019 End: 05-23-2022 History SDOH Alcohol Std Drinks 1 [facility] Start: 10-05-2020 End: 06-10-2022 Tobacco use and exposure Never used [facility] Start: 09-26-2020 History SDOH Physical Activity MPS 15 [facility] Start: 09-26-2020 End: 05-23-2022 History SDOH Stress 2 [facility] Start: 01-07-2022 End: 08-02-2022 Exposure to SARS-CoV-2 (event) Not sure [facility] Start: 10-05-2020 End: 06-24-2023 Alcohol intake [facility] Start: 01-18-2022 History SDOH Alcohol Frequency 98 [facility] Start: 01-18-2022 End: 05-23-2022 History SDOH Physical Activity MPS 3 [facility] Start: 04-27-2022 History SDOH Alcohol Comment social. [facility] Start: 05-23-2022 History SDOH Social Connections Phone 4 [facility] Start: 1960 Sex Assigned At Female [facility] Start: 06-18-2022 End: 06-28-2022 Exposure to SARS-CoV-2 (event) Unable to assess [facility] Start: 05-22-2022 End: 06-24-2023 Social connection and isolation panel [facility] Do you belong to any clubs or organizations such as yazidi groups, [place], [employer] or [employer] groups, or school groups? No [facility] Are you now , , , , never or living with a partner? [facility] How often to you hav e a drink containing alcohol? 4 or more times a week [facility] Work Phone: How many standard dr inks containing alcohol do you have on a typical day? 1 or 2 [facility] Work Phone: How often do you hav e 6 or more drinks on 1 occasion? Never [facility] Work Phone: Adult Depression Screening Assessment 2 [facility] Do you feel stress - tense, restless, nervous, or anxious, or unable to sleep at night because your mind is troubled all the time - these days [OSQ] To some extent [facility] (I/We) worried wheth er (my/our) food would run out before (I/we) got money to buy more. Never true [facility] Start: 06-09-2022 Gender identity Identifies as female gender (finding) [facility] Start: 06-09-2022 Sexual orientation Heterosexual (finding) [facility] Do you belong to any clubs or organizations such as yazidi groups, [place], [employer] or athletic groups, or school groups? Yes [facility] Do you feel stress - tense, restless, nervous, or anxious, or unable to sleep at night because your mind is troubled all the time - these days [OSQ] Not at all [facility] Start: 01-06-2025 Sex Female (finding) [facility] Clinical Notes 07-19-2019 to 08-30-2025 Note Date & Type Note Facility 08-30-2025 Note HNO ID: [id number] Author: NEHAL BARRIGA APRN.IMPLEMENTATION PROJECT MANAGER Service: ? 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 Macie is a 64 year old who presents for an annual gynecologic exam without complaints. Postmenopausal: Yes since age 54 HRT use: No. HPV vaccine: Yes;x3 Last pap smear: 08/23/2024 normal HPV: +HPV History of abnormal pap: 07/01/2022, 08/23/2022, 2022, 2023 +HPV Last mammogram: 2024 results pending History of abnormal mammogram: Yes Patient concerns for STD exposure: No. 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 As applicable, any other physician, advance practice provider, medical student, or other health professional student that will be observing or involved in the sensitive examination for educational or training purposes was discussed with the Patient or Authorized Window Shade Installer. The Patient or Authorized Window Shade Installer has agreed to proceed with the sensitive examination. (Sensitive examination includes inspection and/or palpation of the breasts, pelvis, prostate and anorectal regions). EXAM: BP 126/88 Wt 144 lb (65.3kg) GENERAL: pleasant, female in no apparent distress HEENT: Normocephalic, atraumatic, mucus membranes moist, and no lesions DERMATOLOGY: Normal, without lesions, non-icteric, and non-hirsute BREAST: soft, non-tender, symmetric, no dominant mass, normal nipple-areolar complex, no lymphadenopathy, and no nipple discharge CHEST: Normal inspiratory effort ABDOMEN: soft, non-tender, and no masses PELVIC: external genitalia normal, normal Bartholin's glands, urethra, [place]'s glands, no vulvar lesions, no cervical lesions, physiologic discharge present, normal appearing perineal body and perianal region BIMANUAL: uterus normal size, shape and consistency, no adnexal masses, and non-tender RECTOVAGINAL: deferred. NEURO: alert and oriented x3,exam grossly non-focal EXTREMITIES: normal ASSESSMENT/PLAN: 1) Health maintenance: Pap done with HPV. Mammogram ordered Mammogram up to date Nutrition, exercise and routine health maintenance exams reviewed. Calcium/Vitamin D supplementation information provided. Colon cancer screening: up to date with screening BMD: ordered 2) Follow up one year or sooner as needed Nehal Barriga APRN.[facility] 08-30-2025 Note HNO ID: [id number] Author: JAN EMERSON RT(R) Service: ? Author Type: Technologist Type: Progress Notes Filed: 08/30/2025 14:23 Note Text: Radiology Service Progress Note PATIENT NAME: Macie Spencer DATE OF SERVICE: August 30, 2025 TIME: 2:23 PM PATIENT IDENTITY VERIFICATION COMPLETED USING TWO (2) IDENTIFIERS: Name and Date of confirmed by patient verbally. FALL SCREENING: Has the patient had 2 falls in the last year or 1 fall with injury or currently using an Ambulatory Assistive Device (Walker, Cane, Wheelchair, Crutches, etc.)? No PATIENT GENDER DATA: Assigned female at . status: : No status: NO. PATIENT RELEVANT IMPLANT DATA REVIEWED: Not Applicable PATIENT PRESENTS WITH AN IMPLANTABLE OR ATTACHED COMMUNITY DEVELOPMENT SPECIALIST: No RADIOLOGY DEPARTMENT: Mammography PERIPHERAL IV DATA: Not applicable SIGNED BY: RT Tegan(R) August 30, 2025 2:23 PM [facility] 08-05-2025 Evaluation note Diagnosis Onset Date Resolution Multiple lipomas acute August 05, 2025 1:50pm [facility] Work Phone: 1(666) 172-623210-03-2025 Evaluation note* Diagnosis Onset Date Resolution Status Admit Date Multiple lipomas acute August 05, 2025 1:50pm Multiple lipomas acute August 10, 2025 8:56am [facility] Work Phone: 1(243) 795-989104-08-2025 NoteHNO ID: [id number] Author: NEHAL BARRIGA APRN.IMPLEMENTATION PROJECT MANAGER Service: ? Author Type: Nurse Practitioner Type: Progress Notes Filed: 02/08/2025 15:20 Note Text: Macie Spencer is a 64 year old female who presents for problem visit hair loss for 3 month(s), seen PCP Dr. Garcia Rx minoxidil. HPI: pt states that the hair loss started after she came back from [place] and she stopped her Cymbalta. Her PCP ordered minoxidil daily. She is taking biotin daily. 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 Garcia Rx minoxidil. HPI: pt states that the hair loss started after she came back from [place] and she stopped her Cymbalta. Her PCP ordered minoxidil daily. She is taking biotin daily. 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 Patient reports that her primary care provider has ordered minoxidil for hair loss but she continues to lose hair. Patient asking if she needs to follow up with PCP, dermatology, or gynecology. Minoxidil is not listed on current medication list. Dr. Pinedo is listed as PCP but patient reports she is established with [facility]. Asked patient if she plans to follow with Dr. Pinedo as PCP or [facility] and patient reports [facility]. Directed patient to contact [facility] with questions regarding hair loss. Removed PCP per patient preference. Nothing further needed. Closing TE. Jesus Lawler RN [facility]03-27-2025 Miscellaneous Notes* Telephone Encounter - Jesus Lawler RN - 01/27/2025 9:00 AM EDT Patient calls to ask for recommendations about hair loss. Patient reports that her primary care provider has ordered minoxidil for hair loss but she continues to lose hair. Patient asking if she needs to follow up with PCP, dermatology, or gynecology. Minoxidil is not listed on current medication list. Dr. Pinedo is listed as PCP but patient reports she is established with [facility]. Asked patient if she plans to follow with Dr. Pinedo as PCP or [facility] and patient reports [facility]. Directed patient to contact [facility] with questions regarding hair loss. Removed PCP per patient preference. Nothing further needed. Closing TE. Jesus Lawler RN documented in this encounterHol[facility] Telephone encounter Note * Telephone Encounter - Camille Dyer RN - 10/28/2024 1:37 PM EST Patient returned call and given provider's message [...] this update as well. Camille Dyer RN [facility]12-26-2024 Miscellaneous Notes* Telephone Encounter - Camille Dyer RN - 10/28/2024 1:37 PM EST Patient returned call and given provider's message [...] this update as well. Camille Dyer RN * Telephone Encounter - Marysol Looney LPN - 10/28/2024 12:41 PM EST left message for patient to call office back and speak with triage nurse. Marysol Looney LPN * Telephone Encounter - Ivonne Falk APRN.IMPLEMENTATION PROJECT MANAGER - 10/28/2024 7:47 AM EST Petechia can also appear from high elevation changes like in the [place]. If she has no other concerns, then [...] other concerns. Take care Ivonne Falk APRN.ABIMBOLA * Telephone Encounter - Elise Keys LPN - 10/25/2024 11:06 AM EST Pt calls to report on 10/23 she woke up to petechiae on left forearm. On 10/24 petechiae had moved up to left shoulder and there were a few on right shoulder. Pt reports she went to [facility] in [place], [place]. Pt reports labs were done and pt was advised labs were normal. Pt reports she read up on petechiae and found it concerning. Pt feels that Cymbalta could be a reason for this even though she has been on it for years. Pt reports she is no longer taking doxycyclineand hasn't for a while. Pt is requesting pcp opinion. Pt would like to wean off of Cymbalta. Pt reports she has odd reactions to medications and would like to try not taking Cymbalta. Records request faxed to [facility] @ [phone]. Pt reports she is going to send a picture of petechiae through . Please review and advise. Elise Keys LPN documented in this encounterHol[facility]12-[facility] Telephone encounter Note * Telephone Encounter - Marysol Looney LPN - 10/28/2024 12:41 PM EST left message for patient to call office back and speak with triage nurse. Marysol Looney LPN [facility]12-26-2024 Telephone encounter Note* Telephone Encounter - Ivonne Falk APRN.CNP - 10/28/2024 7:47 AM EST Petechia can also appear from high elevation changes like in the [place] [employer]. If she has no other concerns, then [...] other concerns. Take care Ivonne Falk APRN.ABIMBOLA [facility] Work Phone: 1(350) 853-443812-23-2024 Telephone encounter Note* Telephone Encounter - Elise Keys LPN - 10/25/2024 11:06 AM EST Pt calls to report on 10/23 she woke up to petechiae on left forearm. On 10/24 petechiae had moved up to left shoulder and there were a few on right shoulder. Pt reports she went to [facility] in [place], [place]. Pt reports labs were done and pt was advised labs were normal. Pt reports she read up on petechiae and found it concerning. Pt feels that Cymbalta could be a reason for this even though she has been on it for years. Pt reports she is no longer taking doxycyclineand hasn't for a while. Pt is requesting pcp opinion. Pt would like to wean off of Cymbalta. Pt reports she has odd reactions to medications and would like to try not taking Cymbalta. Records request faxed to [facility] @ [phone]. Pt reports she is going to send a picture of petechiae through . Please review and advise. Elise Keys LPN [facility]12-10-2024 Telephone encounter Note* Telephone Encounter - Sun Evans LPN - 10/12/2024 4:09 PM EST Copied also for scanning. [facility]12-10-2024 Miscellaneous Notes* Telephone Encounter - Sun Evans LPN - 10/12/2024 4:09 PM EST Copied also for scanning. * Telephone Encounter - Sun Evans LPN - 10/12/2024 3:31 PM EST Rec'd via mail courier. Pt dropped off [employer] annual physical and biometric exam form. Rosetta completed this. Pt notified via my chart. documented in this encounterHol[facility] Telephone encounter Note * Telephone Encounter - Sun Evans LPN - 10/12/2024 3:31 PM EST Rec'd via mail courier. Pt dropped off [employer] annual physical and biometric exam form. Rosetta completed this. Pt notified via my chart. [facility]11-27-2024 NoteHNO ID: [id number] Author: ROSETTA LANDIN APRN.[facility] Service: ? Author Type: Nurse Practitioner Type: Progress Notes Filed: 09/29/2024 09:41 Note Text: CC: Patient presents with: Physical HPI Macie Spencer is a 63 year old female [...] action plan to take (more content not included)...[facility]11-27-2024 History of Present illness Narrative* Rosetta Landin, EXTERNAL GRINDER TENDER.IMPLEMENTATION PROJECT MANAGER - 09/29/2024 9:03 AM EST CC: Patient presents with: Physical HPI Macie Spencer is a 63 year old female who presents today for above. Denies routine aerobic exercisebut stays active. She is working on portion [...] years ago. TONSILLECTOMY & ADENOIDECTOMY <AGE 11 1964 ALLERGIES Iodixanol, Iv Dye [Iodinated Contrast Media], [...] mouth two times a day. Has not started(Patient not taking: Reported on 09/29/2024) FAMILY HISTORY [...] Patient agreeable to treatment plan. Rosetta Landin APRN.ABIMBOLA documented in this encounterHolzer [facility]11-04-2024 Instructions* Patient Instructions* Arielle Grant MA - 09/06/2024 1:27 PM [...] can be some complications. You may feel faintduring and shortly after the procedure as well as have some bleeding and vaginal discharge after the procedure. There is also a risk of infection after the procedure. These complications are rare andcan be easily treated. You should contact you doctor is you have any of the following: - Heavy bleeding (more than your normal period) - Bleeding with clots - Severe abdominal pain - Fever (more than 100.4F) - Foul smelling vaginal discharge RESULTS If a biopsy was taken, we will have the results of your biopsy in 1-2 weeks. If you do not hear theresults of your biopsy after 2 weeks, please [...] number of partners and use condoms to reduceyour risks of STDs. If you have any additional questions, please contact your doctor's office. documented in this encounterHolzer [facility]11-04-2024 NoteHNO ID: [id number] Author: SHANNON GUERRERO MD Service: ? Author Type: Physician Type: Progress Notes Filed: 09/06/2024 17:07 Note Text: Hoisting Laborer offered: Patient declines. Macie is a 63 year old Female who [...] 1-2 weeks. Repeat pap yearly Shannon Guerrero [facility]11-04-2024 History of Present illness Narrative* Shannon Guerrero MD - 09/06/2024 1:26 PM EST Hoisting Laborer offered: Patient declines. Macie is a 63 year old Female who [...] yearly Shannon Guerrero MD documented in this encounterHolzer [facility]10-28-2024 Telephone encounter Note * Telephone Encounter - Catherine Garza RN - 08/30/2024 1:10 PM EDT Pt notified and colposcopy scheduled. Catherine Garza RN [facility]10-28-2024 Miscellaneous Notes* Telephone Encounter - Catherine Garza RN - 08/30/2024 1:10 PM EDT Pt notified and colposcopy scheduled. Catherine Garza RN * Telephone Encounter - Bambi Robledo RN - 08/30/2024 12:19 PM EDT Left message to call office. Bambi Robledo RN * Telephone Encounter - Nehal Barriga APRN.CNP - 08/30/2024 12:05 PM EDT Pap normal and HPV+ again. She will need a colp again this yr. Order filed. Nehal Barriga APRN.CNP documented in this encounterHolzer Medical Center [facility]10-28-2024 Telephone encounter Note * Telephone Encounter - Bambi Robledo RN - 08/30/2024 12:19 PM EDT Left message to call office. Bambi Robledo RN [facility]10-28-2024 Telephone encounter Note* Telephone Encounter - Nehal Barriga APRN.CNP - 08/30/2024 12:05 PM EDT Pap normal and HPV+ again. She will need a colp again this yr. Order filed. Nehal Barriga APRN.CNP [facility]10-25-2024 History of Present illness Narrative* Shweta Ramírez Mammo Tech - 08/27/2024 8:30 AM EDT Radiology Service Progress Note PATIENT NAME: Macie Spencer DATE OF SERVICE: August 27, 2024 TIME: 8:55 AM PATIENT IDENTITY VERIFICATION COMPLETED USING TWO (2) IDENTIFIERS: Name and Date of confirmedby patient verbally. FALL SCREENING: Has the patient had 2 falls in the last year or 1 fall with injury or currently using an Ambulatory Assistive Device (Walker, Cane, Wheelchair, Crutches, etc.)? No PATIENT GENDER DATA: Female. status: : No status: NO. PATIENT RELEVANT IMPLANT DATA REVIEWED: Not Applicable PATIENT PRESENTS WITH AN IMPLANTABLE OR ATTACHED COMMUNITY DEVELOPMENT SPECIALIST: No RADIOLOGY DEPARTMENT: Mammography PERIPHERAL IV DATA: Not applicable SIGNED BY: Lea Heart August 27, 2024 8:55 AM documented in this encounterHolzer Medical Center [facility]10-22-2024 Instructions* Patient Instructions* Francy Marie RD - 08/24/2024 11:39 AM EDT Images from the original note were not included. [facility] FUNCTIONAL MEDICINE FOLLOW UP NUTRITION INSTRUCTIONS We recommend scheduling your follow-up appointment at the end of your initial appointment. Nutrition Follow-up: In 4-6 weeks with Functional Medicine Registered Dietitian (Aisha Long orMichaila) Preparation for Follow-up: Complete a 3 day food record using the Diet, Nutrition and Lifestyle Journal from the Functional Nutrition Portal If follow-up is virtual: scan into U2opia Mobile or send to before joining your appointment If follow-up is in person: bring to your appointment Your Prescribed Nutrition Plan: Cardiometabolic, Gluten Free Plan from the start. Access the Functional Nutrition Portal in [facility] to access your food plan comprehensive guide, weekly recipe associate merchandise planner, and food list. Shop for foods [...] blood pressure, high cholesterol and elevated blood fats),metabolic syndrome (eg. high blood sugar, increased belly [...] ). Therapeutic foods to emphasize: Avocado Extra [place] Oil Olives Ground Flax Seed (especially fresh ground) Nuts, especially almonds and walnuts Whole, organic, Non-GMO soy - especially edamame, tempeh, tofu, miso, soy protein and soy nuts Fish, especially wild caught Greens, especially beet, emely, dandelion, kale, mustard, turnip, haitian chard, lettuce and spinach Onions Tomato Yogurt and Kefir, especially grass-fed Blueberries Pomegranate Barley Oats [place] Green Tea Recommended Daily Goals -Aim for 9-12oz weekly of low-mercury [place]ifton-3 rich seafood -Choose lacto-fermented foods (I.e. refrigerated [...] Barley Bulgar (bulgur) Chapatti flour Couscous Durum Mukul Bennett Malt (malt beverages, extract, flavoring, syrup, vinegar, etc.) Oats not certified GF (incl. oat bran, oat syrup) Curtiss Seitan ( wheat meat ) [place] Spelt Textured vegetable protein (typically contains gluten) Triticale Wheat, all varieties (bran, germ, starch) Amaranth Arrowroot Fisher flours (garbanzo, donald, Galan, etc.) Buckwheat, buckwheat groats (kasha) Cassava flour Felipe seeds Flax Manioc flour [place] flour Millet Nut flours and meals (almond, coconut, hazelnut, etc.) Oats (gluten-free) Quinoa Rice (all) Tapioca flour Teff [place] GLUTEN FREE APPS: Eating Out G-Free: Offers [...] restaurants ratings and reviews based on how gluten- friendly the businesses are in the area Gluten Freed-Gluten Free Dining for Health and Celiac: Acts as a gluten-free restaurant finder for those with celiac disease or gluten intolerance. Adapted from: http://www.eatright.org/Media/content DINING OUT AND TRAVEL WEBSITES: (See apps above) www.glutenfreeguidebook.com www.mnjeoy-xdsfp-jgigygnft.com www.glutenfreepassport.com www.allergyfreepassport.com www.triumphdining.com www.glutenfreerestaurantsawarenessprogram.com. www.glutenfreetravelsite.com www.glutenfreeregistry.com www.allergymagazine.com - Allergy magazine www.myfoodmyhealth.com -Gluten free and dairy free recipes Meal planning guidelines: 20 grams of protein per meal (use the 'pina' under proteins, beans, legumes to estimate this amount)(minimum) 1-2 tablespoons healthy fats per meal (minimum) [...] start. Access the Functional Nutrition Portal in [employer] to access your food plan comprehensive guide, weekly recipe associate merchandise planner, and food list. Shop for foods and ingredients from the food list. 2. Consume enough food to fuel your body. Pair protein (protein/legumes), healthy fat (oils/nuts & seeds) and whole food carbohydrates (starchy vegetable, fruit, grains as applicable) at each meal. Aim for 5-6 cups of non- starchy veggies throughout the day! 3. Balanced Blood [...] the best hydration options. How to Access [employer] Your Food Plan Resources: Accessing on [employer] To access [employer], please visit: [email or web address] to create a new account. Step 1: Create Your Account: Complete the following conte: username, password, email address, first name & last name. Click 'Create My New Account'. A message will display. Click continue. Step 2: Verify Your Account: Check your email for an email from [employer]. In the email, click thelink provided to launch [employer] and complete registration. Note: some [employer] users may not receive the confirmation link. If you do not receive the link, please attempt sign-up with another email address, if possible. If you require manual registration to the [employer] site, please email [email or web address] with a request for manual BuzzStarter account creation. Step 3: Enroll in the 'Functional Nutrition Portal'. Once you have launched [employer], hover over the Find Learning tab, and click on the drop-down option 'Courses'. Search for the course FunctionalNutrition Portal in the search field. In the search results, click the link to access the course. Step 4: Enter the Enrollment Pina Functional Nutrition (this is case sensitive and requires a space-please type this password exactly as shown in red). Step 5: To login after enrollment, visit [email or web address]. Login under 'Non-Employee Login' using the username and password from step #1. Step 6: If you receive an error message that you already have an account, please click 'forgotten your username of password?' to reset your password. Need Help? If you have difficulty accessing the portal, please email [email or web address]. ADDITIONAL INSTRUCTIONS: How to Contact Your Functional Medicine Team (Open M-F 8am-5pm): 1. Skywordt is the BEST form of communication to reach the Functional Medicine Team, see test results and request refills. Please allow 72 business hours for a response. Directions for signing up are included in your New Patient Folder. (Or you can go to [email or web address]) 2. For nutrition related questions or concerns, Skywordt message your physician and include Attn: Francy Marie RD at the top of the message. U2opia Mobile messaging is meant to support implementation of [...] Supplements: Supplements can be ordered from the [facility]'s Online Store: [email or web address] New patients to the Healthy Living Shop will need to enter the provider code [id number] documented in this encounterHolzer Medical Center [facility]10-22-2024 Instructions* Patient Instructions* Yulissa Miguel Health ED - 08/24/2024 11:26 AM EDT Images from the original note were not included. [facility] HEALTH ARCH SUPPORT TECHNICIAN FOLLOW-UP At the [facility], we focus on the person as a whole: Mind, Body, and Spirit. Working with your Health President & Ceo on a regular basis can help you prioritize your next steps and builda strong foundation for healing. Our goal is to ask the right questions while empowering you to discover your own solutions and determine your own path for creating the health you desire. Our focus is on establishing your desired outcomes, working with you to overcome challenges and on determining practical action steps for implementing lifestyle changes. Staff Health President & Ceo Follow-Up Timeframe: Within 1-2 Weeks with Functional Medicine Health President & Ceo (Yulissa Hurtado or Chantal) Schedule your initial 1:1 health coaching appointment and/or Mindfulness group coaching session Schedule by calling the appointment center ([phone] option #1) or through U2opia Mobile self-scheduling More information about our Mindfulness group coaching program can be found here: [email or web address] [email or web address] 2. Sign up for the MobileMD Shop to order your supplements 3. Create a [employer] account to access the Functional Health Coaching Portal Review the Wheel of Wellness self-assessment tool in preparation for your first 1:1 appointment How to Access the Functional Health Coaching Portal: To access [employer], please visit: [email or web address] to create a new account. Step 1: Create Your Account: Complete the following conte: username, password, email address, first name & last name. Click 'Create My New Account'. A message will display. Click continue. Step 2: Verify Your Account: Check your email for an email from [employer]. In the email, click thelink provided to launch [employer] and complete registration. Step 3: Enroll in the 'Functional Health Coaching Portal'. Once you have launched [employer], hoverover the Find Learning tab, and click on the drop-down option 'Courses'. Search for the course Functional Health Coaching Portal in the search field. In the search results, click the link to access the course. Step 4: Enter the Enrollment Pina Functional Coaching (this is case sensitive). Step 5: To login after enrollment, visit [email or web address]. Login under 'Non-Employee Login' using the username and password from step #1. If you have difficulty accessing this course, please email [email or web address] ADDITIONAL INSTRUCTIONS: How to Contact Your Functional Medicine Team (Open M-F 8am-5pm): MyChart is the BEST form of communication to reach the Functional Medicine Team, see test results and request refills. Please allow 72 business hours for a response. Directions for signing up are included in your New Patient Folder. (Or you can go to [email or web address]) Ordering Supplements: Supplements can be ordered from the [facility]'s Online Store: [email or web address] New patients to the MobileMD Shop will need to enter the provider code [id number] to register their account. Electronically signed by Yulissa Miguel [facility] at 08/24/2024 11:26 AM EDT documented in this encounterHolzer Medical Center [facility]10-22-2024 History of Present illness Narrative* Yulissa Miguel [facility] - 08/24/2024 11:25 AM EDT GROUP HEALTH ARCH SUPPORT TECHNICIAN COHORT IN PERSON Patient was part of a group health head golf coach session. Patient received education and participated in discussion about modifiable lifestyle factors and healthy habits, with emphasis on the role of the health head golf coach within the functional medicine model and the Wheel of Wellness. Other topics of discussion included Functional Medicine process and scheduling for follow-up visitsand support prior to next visit. ................................................................................ ....................... FOLLOW UP: 30-Minute Consultation with Health President & Ceo within 1-2 weeks Time Spent with Patient: 30 minutes Signed by: Yulissa Miguel, [facility] Electronically signed by Yulissa Miguel, [facility] at 08/24/2024 11:56 AM EDT documented in this encounterHolzer Medical Center [facility]10-22-2024 History of Present illness Narrative* Francy Marie, RD - 08/24/2024 10:18 AM EDT Images from the original note were not included. [facility] Nutrition Therapy: Initial Assessment (Group) New Patient Shared Nutrition Appointment IN PERSON History adapted from referring provider's notes Class Topic: Introduction to Functional Nutrition and Implementation of Foundational Food Plan Patient Name: Macie Spencer Past Medical History: PAST MEDICAL HISTORY [...] boat Lives downtown in a loft in [place] Likes to visit Leivasy Nabeel Tried carnivore/keto diet x 4 months - was eating case daily And no fruit but mentions she likes apples Lost weight but mentions not sustainable States cholesterol improved 5 years ago, had nasal septum surgery, 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 Access the [address] Nutrition Portal in [employer] to access your food plan comprehensive guide, weekly recipe associate merchandise planner, and food list. Shop for foods [...] blood pressure, high cholesterol and elevated blood fats),metabolic syndrome (eg. high blood sugar, increased belly [...] ). Therapeutic foods to emphasize: Avocado Extra [place] Oil Olives Ground Flax Seed (especially fresh ground) Nuts, especially almonds and walnuts Whole, organic, Non-GMO soy - especially edamame, tempeh, tofu, miso, soy protein and soy nuts Fish, especially wild caught Greens, especially beet, emely, dandelion, kale, mustard, turnip, haitian chard, lettuce and spinach Onions Tomato Yogurt and Kefir, especially grass-fed Blueberries Pomegranate Barley Oats [place] Green Tea Recommended Daily Goals -Aim for 9-12oz weekly of low-mercury [place]-3 rich seafood -Choose lacto-fermented foods (I.e. refrigerated [...] Barley Bulgar (bulgur) Chapatti flour Couscous Durum Mukul Bennett Malt (malt beverages, extract, flavoring, syrup, vinegar, etc.) Oats not certified GF (incl. oat bran, oat syrup) [place]iss Seitan ( wheat meat ) [place] Spelt Textured vegetable protein (typically contains gluten) Triticale Wheat, all varieties (bran, germ, starch) Amaranth Arrowroot Fisher flours (garbanzo, donald, Galan, etc.) Buckwheat, buckwheat groats (kasha) Cassava flour Felipe seeds Flax [place]ioc flour [place] flour Millet Nut flours and meals (almond, coconut, hazelnut, etc.) Oats (gluten-free) Quinoa Rice (all) Tapioca flour Teff [place] GLUTEN FREE APPS: Eating Out G-Free: Offers [...] restaurants ratings and reviews based on how gluten- friendly the businesses are in the area Gluten Freed-Gluten Free Dining for Health and Celiac: Acts as a gluten-free restaurant finder for those with celiac disease or gluten intolerance. Adapted from: http://www.eatright.org/Media/content DINING OUT AND TRAVEL WEBSITES: (See apps above) www.glutenfreeguidebook.Life360 www.wbncfo-ccdif-duybivxqw.Life360 www.glutenfreepassport.com www.allergyfreepassport.com www.triumphdining.com www.glutenfreerestaurantsawarenessprogram.com. www.glutenfreetravelsite.com www.glutenfreeregistry.com www.allergymagazine.com - Allergy magazine www.[employer].com -Gluten free and dairy free recipes Meal planning guidelines: 20 grams of protein per meal (use the 'pina' under proteins, beans, legumes to estimate this amount)(minimum) 1-2 tablespoons healthy fats per meal (minimum) [...] start. Access the Functional Nutrition Portal in [employer] to access your food plan comprehensive guide, weekly recipe associate merchandise planner, and food list. Shop for foods and ingredients from the food list. 2. Consume enough food to fuel your body. Pair protein (protein/legumes), healthy fat (oils/nuts & seeds) and whole food carbohydrates (starchy vegetable, fruit, grains as applicable) at each meal. Aim for 5-6 cups of non- starchy veggies throughout the day! 3. Balanced Blood [...] the best hydration options. How to Access [employer] Your Food Plan Resources: Accessing on [employer] To access [employer], please visit: [email or web address] to create a new account. Step 1: Create Your Account: Complete the following conte: username, password, email address, first name & last name. Click 'Create My New Account'. A message will display. Click continue. Step 2: Verify Your Account: Check your email for an email from [employer]. In the email, click thelink provided to launch [employer] and complete registration. Note: some [employer] users may not receive the confirmation link. If you do not receive the link, please attempt sign-up with another email address, if possible. If you require manual registration to the [employer] site, please email [email or web address] with a request for manual BuzzStarter account creation. Step 3: Enroll in the 'Functional Nutrition Portal'. Once you have launched [employer], hover over the Find Learning tab, and click on the drop-down option 'Courses'. Search for the course FunctionalNutrition Portal in the search field. In the search results, click the link to access the course. Step 4: Enter the Enrollment Pina Functional Nutrition (this is case sensitive and requires a space-please type this password exactly as shown in red). Step 5: To login after enrollment, visit [email or web address]. Login under 'Non-Employee Login' using the username and password from step #1. Step 6: If you receive an error message that you already have an account, please click 'forgotten your username of password?' to reset your password. Need Help? If you have difficulty accessing the portal, please email [email or web address]. Adherence Potential to Goals/Care Plan: High Nutrition Monitoring & Evaluation: Adherence to food plan, changes in symptom frequency and intensity, nutrition-related laboratory data Criteria: Dietary recall, laboratory results, subjective symptom response Education Materials Provided: Food Plan Comprehensive Guide, Weekly Brass Buffer and Recipes, Phytonutrient Spectrum Foods, Product Guide, Simple Meal and Snack Ideas Follow up: 4 Weeks Time Spent: 60 Minutes Referred/Supervised by: Avril Danielson APRN, PA Consult Billing Type: 60 Minutes Number of Increments: 2 (60 minutes) Signed by: Francy Marie RD documented in this encounterHol[facility]-22-2024 Instructions* Patient Instructions* Avril Danielson APRN.[facility] - 08/24/2024 10:05 AM EDT Plan and Lifestyle Prescription PLAN with Patient Instructions: Based on your evaluation today, these are my recommendations: Modified Cardiometabolic Diet: GF. Discuss well-sourced protein options and balanced meals/snack ideas. Expand vegetable diversity for microbiome support. Follow up with the registered nurse hh case manager (RD)for a customized food plan. Consider a 3-day food log/dietary recall assessment with your RD. Goals: Eliminate highly processed foods. Low pina on alcohol, sugar, and starches. Increase plant fiber intake with color variety (eat the rainbow) for gut health. Avoid coffee on an empty stomach. Eat breakfast first, then enjoy and drink coffee. CFM fasting labs ordered Water intake: Aim for 8 glasses of filtered water a day. Avoid drinking from plastic water bottles when possible. Try 1-2 cups before breakfast/morning coffee. Use a non-plastic, reusable water container for daily hydration. Carry it with you during your day-to-day. To gauge hydration: Urine shouldnever be colorless clear. Aim for a pale straw yellow color. Stress regulation: Try the 47-8 breath twice a day or at bedtime (Youtmargaret Graves 8). Take 1-2 deep breaths before eating meals Optionally, follow up with the holistic psych therapist to help set boundaries and process the stress you are experiencing Weekly movement routine: consider strength training 3x a week for 30 min (as tolerated) For restorative sleep, consider using your CPAP machine every night Restorative sleep: Pre-bedtime routine. No blue screens 1-2 hours before bed. Do something relaxingevery night: read a book, meditate, try a deep breathing exercise, etc. Sleep goal 7-9 hours nightly Natural detox: sauna 3x a week (as tolerated). Sweat for 8-10 min, shower directly after Consistency: We have to build new neuro pathways for a sustainable health routine, including diet. Follow up with the health head golf coach every 2 weeks to keep things in check Supplements: recommend a well-sourced Vitamin D and quality probiotic. I like these brands: Pure Encapsulations vitamin D 5000 international unit(s) or plant-based: Truvani brand vitamin D orMindBodyGreen D3 uniRow probiotic 30 billion CFUs (Shadow Puppet.Life360 / also at Whole Foods) or Seed (Voltage Security.Life360) Notes: Visit the online [facility] Shop to order Pure Encapsulations brand. (website/code below) Follow up: Please schedule a follow up visit with the following Caregivers: Provider: 12weeks, Contract Project Manager: 4 weeks, and Health President & Ceo: 2 weeks Correctional Corporal (RD): During the next 4-8 weeks you'll be working on your diet plan with our RD, allowing for gentle detoxification and decreasing inflammation - while we are gathering your lab results and combining thosewith your complete history to formulate a very personalized treatment plan. [phone]. Health Coaching: Recommend follow up every 2 weeks to develop a consistent routine. Please consider scheduling with our [facility] health coaches for a phone or virtual visit for accountability, goal setting and help with behavior exchange mechanic the next 6-8 weeks to be successful with your goals. [phone]. Holistic Psych / Behavioral Health Therapist: I recommend that you schedule an individual appointment after your visit today. This is optional. Weekly or bi-monthly appointments can be helpful. [phone]. Due to the complexity of the testing performed, we are not able to review labs via MyChart or over the phone, but please know, if any of your labs are critical we will contact you. Otherwise, we willreview all your labs at your next visit. Reminder: We recommend ordering supplementation online from the [facility] Shop as they are high quality therapeutic supplements. [facility] Store at [email or web address].Quantum [email or web address]/. Please use code: [id number] [Other high quality supplement brands include Baljeet (Preply.com) and uniRow (at Whole Foods)] documented in this encounterHolzer Medical Center – [facility]10-22-2024 History of Present illness Narrative* Avril Danielson APRN.[facility]A - 08/24/2024 9:11 AM EDT FUNCTIONAL MEDICINE INITIAL ASSESSMENT Patient: Macie Spencer ALLERGIES Allergen Reactions Iodixanol Anaphylaxis Iv [...] New to provider visit today. Lives in [place], [place] HPI: This is a 63yo female [...] boat Lives downtown in a loft in [place] Likes to visit Leivasy Nabeel Tried carnivore/keto diet x 4 months - was eating case daily And no fruit but mentions she likes apples Lost weight but mentions not sustainable States cholesterol improved 5 years ago, had nasal septum surgery, mentions that nostril permanently closed Childhood: seasonal allergies, runny nose - takes 1-2 zyrtecs daily recommended by recreation attendant x years Last PCP visit: within the past year Diet: B: skips, coffee with cream, walnut/cranberry bread with avocado L: nuts and cheese D: Sammarinese food, eats out daily, steamed broccoli/greens Fluids/caffeine [...] has sleep apnea but doesn't use CPAP. Notfeeling refreshed in the am Stress: 4-7 Source: anxiety about things she should be doing, drives to calm down, main support formultiple family members Exercise: PT for knees, walks daily Relationships: Not good support with family/friends, sister is schizophrenic/main caregiver Tobacco/ETOH/Substance Use: No tobacco or substances. 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 Follow up with the registered nurse hh case manager (RD)for a customized food plan. Consider a 3-day food log/dietary recall assessment with your RD. Goals: Eliminate highly processed foods. Low pina on alcohol, sugar, and starches. Increase plant fiber intake with color variety (eat the rainbow) for gut health. Avoid coffee on an empty stomach. Eat breakfast first, then enjoy and drink coffee. [facility] fasting labs ordered Water intake: Aim for 8 glasses of filtered water a day. Avoid drinking from plastic water bottles when possible. Try 1-2 cups before breakfast/morning coffee. Use a non-plastic, reusable water container for daily hydration. Carry it with you during your day-to-day. To gauge hydration: Urine shouldnever be colorless clear. Aim for a pale [...] screens 1-2 hours before bed. Do something relaxingevery night: read a book, meditate, try a deep breathing exercise, etc. Sleep goal 7-9 hours nightly Natural detox: sauna 3x a week (as tolerated). Sweat for 8-10 min, shower directly after Consistency: We have to build new neuro pathways for a sustainable health routine, including diet. Follow up with the health head golf coach every 2 weeks to keep things in check Supplements: recommend a well-sourced Vitamin D and quality probiotic. I like these brands: Pure Encapsulations vitamin D 5000 international unit(s) or plant-based: Truvani brand vitamin D orMindBodyGreen D3 Garden of Life probiotic 30 billion CFUs (gardenEvent Park Prolife.com / also at Whole Foods) or Seed (seed.Life360) Notes: Visit the online [facility] Shop to order Pure Encapsulations brand. (website/code below) Follow up: Please schedule a follow up visit with the following Caregivers: Provider: 12weeks, Contract Project Manager: 4 weeks, and Health President & Ceo: 2 weeks Correctional Corporal (RD): During the next 4-8 weeks you'll be working on your diet plan with our RD, allowing for gentle detoxification and decreasing inflammation - while we are gathering your lab results and combining thosewith your complete history to formulate a very personalized treatment plan. [phone]. Health Coaching: Recommend follow up every 2 weeks to develop a consistent routine. Please consider scheduling with our [facility] health coaches for a phone or virtual visit for accountability, goal setting and help with behavior exchange mechanic the next 6-8 weeks to be successful with your goals. [phone]. Holistic Psych / Behavioral Health Therapist: I recommend that you schedule an individual appointment after your visit today. This is optional. Weekly or bi-monthly appointments can be helpful. [phone]. Due to the complexity of the testing performed, we are not able to review labs via GeneCapturehart or over the phone, but please know, if any of your labs are critical we will contact you. Otherwise, we willreview all your labs at your next visit. Reminder: We recommend ordering supplementation online from the [facility] as they are high quality therapeutic supplements. [facility] Store at https://Pentagon [employer]s.Quantum Secure/. Please use code: [email or web address] [Other high quality supplement brands include Baljeet (baljeet.com) and Garden of Life (at Whole Foods)] Future plans: Consider DF for rosacea Time spent with patient: I spent a total of 60 minutes on the date of the service which included preparing to see the patient, [id number] patient care, completing clinical documentation, obtaining and/or reviewing separately obtained history, performing a medically appropriate examination, counseling and educating the pat ient/family/caregiver, and ordering medications, tests, or procedures. 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 Macie is a 63 year old who presents [...] L2 SAB0 IAB0 Ectopic0 Multiple0 Live Births2 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 Age at Menarche: Age at First : Age at Menopause: Waiter/Waitress Bar History Comments: Sexual Activity: Not Currently; No [...] discussed with the Patient or Patient's Authorized Window Shade Installer. As applicable, any other physician, advance practice provider, medical student, or other health professional student that will be observing or involved in the sensitive examination for educational or training purposes was discussed with the Patient or Authorized Window Shade Installer. The Patient or Authorized Window Shade Installer has agreed to proceed with the sensitive [...] external genitalia normal, normal Bartholin's glands, urethra, [place]'s glands, no vulvar lesions, no cervical lesions, [...] needed Nehal Barriga APRN.ABIMBOLA documented in this encounterHolzer Medical Center – [place]10-04-2024 Telephone encounter Note * Telephone Encounter - Ron Manzanares MA - 08/06/2024 8:46 AM EDT Patient notified, verbalized understanding. [facility]-04-[facility]24 Miscellaneous Notes* Telephone Encounter - Ron Manzanares MA - 08/06/2024 8:46 AM EDT Patient notified, verbalized understanding. * Telephone Encounter - Rosetta Landin APRN.CNP - 08/06/2024 8:40 AM EDT Patient is scheduled with me today for worsening facial swelling. I discussed with Dr. Pinedo. He recommend urgent evaluation in the ER since it has spread to her eye and some of her labs that have resulted are abnormal. Rosetta Landin APRN.ABIMBOLA documented in this encounterHolzer Medical Center – [facility]10-04-2024 Telephone encounter Note * Telephone Encounter - Rosetta Landin APRN.CNP - 08/06/2024 8:40 AM EDT Patient is scheduled with me today for worsening facial swelling. I discussed with Dr. Pinedo. He recommend urgent evaluation in the ER since it has spread to her eye and some of her labs that have resulted are abnormal. Rosetta Landin APRN.ABIMBOLA [facility]10-03-[facility]24 History of Present illness Narrative* Pinky Samuel, RT(R) - 08/05/2024 11:00 AM EDT Radiology Service Progress Note PATIENT NAME: Macie Spencer DATE OF SERVICE: August 05, 2024 TIME: 11:00 AM PATIENT IDENTITY VERIFICATION COMPLETED USING TWO (2) IDENTIFIERS: Name and Date of confirmedby patient verbally. FALL SCREENING: Has the patient had 2 falls in the last year or 1 fall with injury or currently using an Ambulatory Assistive Device (Walker, Cane, Wheelchair, Crutches, etc.)? No PATIENT GENDER DATA: Female. status: : No status: NO. PATIENT RELEVANT IMPLANT DATA REVIEWED: Not Applicable PATIENT PRESENTS WITH AN IMPLANTABLE OR ATTACHED COMMUNITY DEVELOPMENT SPECIALIST: No RADIOLOGY DEPARTMENT: General X-ray: Exam(s) Completed: Chest X-Ray PERIPHERAL IV DATA: Not applicable SIGNED BY: RT Leyla(R) August 05, 2024 11:00 AM documented in this encounterHolzer Medical Center – [place]10-03-2024 History of Present illness Narrative* Kavon Pinedo MD - 08/05/2024 10:42 AM EDT This note was created using Saylent Technologiesriter. Subjective Macie Spencer is a 63 year old female. One week ago, she started noticing tender bumps in her scalp and was here for presumed scalp infection. She shortly noticed tender lymph nodes, first in the left neck and jaw, the the right neck. 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 Other than some mosquito bites, she had no other bug bites. She did now swim. She had no sexualcontact or substance use. The water she drank [...] delineated induration of the forehead 7 x 6cm. Few small scattered scalp papules with no [...] clear. Kavon Pinedo MD documented in this encounterHolzer Medical Center – [facility]09-13-2024 Telephone encounter Note * Telephone Encounter - Katya La RN - 07/16/2024 4:58 PM EDT Call received from Pt - name & verified. Pt calling for an update re: phone call from this morning sent to Dr. Wu. This is in regards to having rectal bleeding. She denies having any rectal bleeding prior to her colonoscopy. Pt denies any abd pain or pain while having a BM. Pt denies seeing any blood clots but does report bright red blood on the toilet paper and in the bottom of the toilet. Afebrile. Spoke to Jasmin Baumann RN at Dr. Wu's office and offered Pt an appt on 07/19/2024 @ 2:30pm for evaluation. Pt agreeable and scheduled. Instructed Pt to watch for any increase in bleeding, fever, blood clots, lightheaded, dizziness, orincreased fatigue over the weekend. Pt voices understanding. Katya La RN July 16, 2024 5:02 PM [facility]-13-[facility] Miscellaneous Notes* Telephone Encounter - Katya La RN - 07/16/2024 4:58 PM EDT Call received from Pt - name & verified. Pt calling for an update re: phone call from this morning sent to Dr. Wu. This is in regards to having rectal bleeding. She denies having any rectal bleeding prior to her colonoscopy. Pt denies any abd pain or pain while having a BM. Pt denies seeing any blood clots but does report bright red blood on the toilet paper and in the bottom of the toilet. Afebrile. Spoke to Jasmin Baumann RN at Dr. Wu's office and offered Pt an appt on 07/19/2024 @ 2:30pm for evaluation. Pt agreeable and scheduled. Instructed Pt to watch for any increase in bleeding, fever, blood clots, lightheaded, dizziness, orincreased fatigue over the weekend. Pt voices understanding. Katya La RN July 16, 2024 5:02 PM * Telephone Encounter - Jeni Darling LPN - 07/16/2024 9:34 AM EDT Patient called in and states ever since [...] Patient would like a call back. Jeni Darling LPN documented in this encounterHolzer Medical Center – [place]09-13-2024 Telephone encounter Note * Telephone Encounter - Jeni Darling LPN - 07/16/2024 9:34 AM EDT Patient called in and states ever since [...] Patient would like a call back. Jeni Darling LPN [facility]08-09-[facility] Nurse Note* Veronica Maguire RN - 06/11/2024 10:01 AM EDT pt arrived to phase 2 resting on left side. Friend at bedside. Passing gas. SR up x 2, call light in reach. Veronica Maguire RN [facility]08-09-[facility] Nurse Note* Veronica Maguire RN - 06/11/2024 10:01 AM EDT pt arrived to phase 2 resting on left side. Friend at bedside. Passing gas. SR up x 2, call light in reach. Veronica Maguire RN documented in this encounterHolzer Medical Center – [facility]08-09-2024 Note* Discharge Instr - Nursing - Veronica Maguire RN - 06/11/2024 10:00 AM EDT The patient received a copy of Colonoscopy discharge instructions that contain information for how to contact the physician who performed the procedure and when to seek medical care. [facility] Miscellaneous Notes* Discharge Instr - Veronica Martinez RN - 06/11/2024 10:00 AM EDT The patient received a copy of Colonoscopy discharge instructions that contain information for how to contact the physician who performed the procedure and when to seek medical care. documented in this encounterHolzer Medical Center – [place]08-09-2024 History and physical note * Dipak Wu MD - 06/11/2024 9:45 AM EDT CC Patient presents with: Hypertension: 150/90 @ home HPI Macie Spencer is a 63 year old female [...] Patient agreeable to treatment plan Rosetta Landin APRN.IMPLEMENTATION PROJECT MANAGER UPDATED HISTORY AND PHYSICAL EXAMINATION SERVICE DATE: 06/11/2024 SERVICE TIME: 8:47 AM PHYSICAL EXAM MUST BE COMPLETED ON ADMISSION The History and Physical (completed in the past 30 days) has been reviewed and the patient has beenexamined. The contents accurately reflect the patient's condition with the following additions or revisions since the H&P was completed. Examination indicates no changes. This H&P can be found in the attached. SIGNATURE: Dipak Wu III, MD PATIENT NAME: Macie Spencer DATE: June 11, 2024 TIME: 8:47 AM [facility] History and physical note* Dipak Wu MD - 06/11/2024 9:45 AM EDT CC Patient presents with: Hypertension: 150/90 @ home HPI Macie Spencer is a 63 year old female [...] agreeable to treatment plan Rosetta Landin APRN.CNP UPDATED HISTORY AND PHYSICAL EXAMINATION SERVICE DATE: 06/11/2024 SERVICE TIME: 8:47 AM PHYSICAL EXAM MUST BE COMPLETED ON ADMISSION The History and Physical (completed in the past 30 days) has been reviewed and the patient has beenexamined. The contents accurately reflect the patient's condition with the following additions or revisions since the H&P was completed. Examination indicates no changes. This H&P can be found in the attached. SIGNATURE: Dipak Wu III, MD PATIENT NAME: Macie Spencer DATE: June 11, 2024 TIME: 8:47 AM documented in this encounterHolzer Medical Center – [place]07-02-2024 Instructions* Patient Instructions* Rosetta Landin APRN.ABIMBOLA - 05/04/2024 9:02 AM EDT Images from [...] If you do not have a responsible auto crane driver (family member or friend) withyou to take you home, your exam cannot be done with sedation and will be cancelled. Please bring a list of all of your current medications, including any Remn-zxg-Afmawbd medications with you. Medications If you take insulin, diabetic medications or blood thinners such as Coumadin (warfarin), Plavix (clopidogrel), Ticlid (ticlopidine hydrochloride), Agrylin (anagrelide), Xarelto (Rivaroxaban), Pradaxa(Dabigatran), Eliquis (Apixaban), and Effient (Prasugrel). You MUST [...] every 15 minutes for a total of 2glasses. You may continue to drink clear liquids up to (three) 3 hours before your exam. 2 10/2019 documented in this encounterHolzer Medical Center – [facility]07-02-2024 History of Present illness Narrative* Rosetta Landin APRN.ABIMBOLA - 05/04/2024 8:44 AM EDT CC Patient presents with: Hypertension: 150/90 @ home HPI Mcaie Spencer is a 63 year old female [...] Patient agreeable to treatment plan Rosetta Landin APRN.IMPLEMENTATION PROJECT MANAGER documented in this encounterHolzer Medical Center – [place]11-29-2023 Instructions* Patient Instructions* Rosetta Falk APRN.CNP - 10/01/2023 6:01 PM EST BONE MINERAL DENSITY PATIENT INSTRUCTIONS Bone mineral density testing measures the amount of calcium in certain parts of your bones. This information determines how strong your bones are. The test is used to detect osteoporosis, a disease in which the bone's mineral content and density are low, increasing a person's risk of fractures. Thelumbar spine (lower back) and the hip are [...] your usual activities immediately. documented in this encounterHolzer Medical Center – [facility]11-29-2023 History of Present illness Narrative* Rosetta Falk APRN.CNP - 10/01/2023 5:41 PM EST CC: Patient presents with: Yearly Exam HPI Macie Spencer is a 62 year old female who presents today for above. Exercise: denies regular aerobic exercise but is very active at work. Diet: Watches diet for salt (salty snacks, added salt, processed frozen/canned foods), sugary/sweetsnacks, unhealthy fats: Yes Anxiety-treated with Cymbalta 20 [...] ophthalmic ointment daily at bedtime. (Patient not taking:Reported on 10/01/2023) FAMILY HISTORY Problem Relation Age [...] Abs Lymph 1.00 - 4.00 k/uL 1.11 Traverse% % 8.3 Abs Traverse <0.87 k/uL 0.34 Eosin% % 6.6 Abs [...] diet of 1000 mg/day for under 50, 1200- 1500 mg/day for 50+ - Bone mineral density [...] plan. Rosetta Falk APRN.CNP documented in this encounterHolzer Medical Center – [facility]11-27-2023 Miscellaneous Notes* Telephone Encounter - Ron Manzanares Ma - 09/29/2023 4:27 PM EST Pt notified. * Telephone Encounter - Rosetta Falk APRN.CNP - 09/29/2023 4:18 PM EST Fasting labs ordered Rosetta Falk APRN.CNP * Telephone Encounter - Elise Keys LPN - 09/29/2023 3:04 PM EST Pt has a physical scheduled for 10/01. Pt is asking if she needs to get any labs done before appt. Elise Keys LPN documented in this encounterHolzer Medical Center – [facility]09-27-2023 Miscellaneous Notes* Letter - Coordinator, Mammography - 07/30/2023 2:11 PM EDT July 31, 2023 PID: [id number] Macie Spencer [address] [place], [place] [id number] Dear Ms. Spencer, We are pleased to [...] dense breast tissue in addition to other riskfactors. Early detection of cancer is very important. We also understand recommendations regarding breast cancer screening are controversial. Please discuss with your primary care provider which strategy is best for you and whether a mammogram is right for you. Your imaging studies and report will be kept on file at [facility] as part of your permanent medical record and are available for your continuing care. Thank you for allowing us to help in meeting your health care needs. Sincerely, Dr. Caruso Interpreting Radiologist [facility] (Normal over 40) documented in this encounterHolzer Medical Center – [place]08-31-2023 Miscellaneous Notes* Telephone Encounter - Melissa Sosa LPN - 07/03/2023 8:40 AM EDT Patient notified * Telephone Encounter - Nehal Barriga APRN.CNP - 07/03/2023 7:02 AM EDT Please let the pt know that her Pap was normal but +hPV still will repeat pap in 1 yr. Nehal Barriga APRN.CNP documented in this encounterHolzer Medical Center – [place]05-01-2023 Instructions* Patient Instructions* Veronica Allred MD - 03/03/2023 10:23 AM EDT No oculoplastics intervention needed at this time. F/u as needed, sooner if issues 2. General eye care Dr. Rbui 3.Heavy upper eyelids No double vision No [...] rims, especially laterally -Without brow lift there willbe suboptimal improvement of heavy upper lids. Discussed [...] cosmetic; not covered by insurance; cost approx $5500- 6500; fat removal $5500, fat transposition $6500; will not address skin laxity/creapiness. If patient interested in cosmetic surgery in future can come back or do virtual for consent documented in this [facility] History of Present illness Narrative* Veronica Allred MD - 03/03/2023 9:30 AM EDT Lesion of left eyelid Pt states that [...] rims, especially laterally -Without brow lift there willbe suboptimal improvement of heavy upper lids. Discussed [...] cosmetic; not covered by insurance; cost approx $5500- 6500; fat removal $5500, fat transposition $6500; will [...] by others. I have seen and examined Macie Spencer. I have discussed the case and the management of this patient's care with the Resident/Fellow, if applicable. I also have reviewed and agree with the assessment and plan as stated above and agree withall of its relevant components. I, Veronica Allred [...] 03, 2023 10:20 AM. documented in this encounterHol[facility]-23-2023 Miscellaneous Notes* Telephone Encounter - Ron Manzanares Ma - 11/25/2022 10:05 AM EST GUILLERMO: 10/18/2022 Last refill: 09/23/2022 QTY: 30 Refills: 2 * Telephone Encounter - Antonieta Ortega Pss - 11/25/2022 9:02 AM EST Patient will be traveling during the time that is going to come up for renewal and needs to make sure that she has enough medication to handle her needs. Please advise. Patient has been identified byname and date of : Yes Requested Prescriptions Pending Prescriptions Disp Refills DULoxetine (CYMBALTA) 20 mg capsule 30 capsule 2 Sig: Take 1 capsule by mouth once daily. RX INSTRUCTIONS: Patient aware RX will be sent to pharmacy. No need to notify patient. Antonieta Ortega Pss documented in this encounterHol[facility]01-09-2023 Instructions* Patient Instructions* Pinky Rubi, OD - 11/11/2022 11:37 AM EST ASSESSMENT/PLAN: 1. Lesion of left eyelid - ICD9: 373.9, ICD10: H02.9 (primary diagnosis) Suggested not using the makeup over the lesion if she can avoid it. Continue the ointment until shesees Dr. Allred. 2. Hordeolum externum of right [...] for lid growth evaluation documented in this encounterHol[facility]01-09-2023 History of Present illness Narrative* Pinky Rubi, OD - 11/11/2022 11:32 AM EST ASSESSMENT/PLAN: 1. Lesion of left eyelid - ICD9: 373.9, ICD10: H02.9 (primary diagnosis) Suggested not using the makeup over the lesion if she can avoid it. Continue the ointment until shesees Dr. Allred. 2. Hordeolum externum of right [...] to Dr. Allred for lid growth evaluation Pinky Rubi, OD I have confirmed and edited as necessary the relevant ophthalmic history, ROS, and the neuro exam findings as obtained by others. I have seen and examined this patient. documented in this encounterHolzer [facility]12-20-2022 Instructions* Patient Instructions* Pinky Rubi, OD - 10/22/2022 5:55 PM EST [...] returns from her vacation documented in this encounterHolzer [facility] [place]12-20-2022 History of Present illness Narrative* Pinky Rubi, OD - 10/22/2022 5:51 PM EST ASSESSMENT/PLAN: 1. Lesion of left [...] up when she returns from her vacation Pinky Rubi, OD I have confirmed and edited as necessary the relevant ophthalmic history, ROS, and the neuro exam findings as obtained by others. I have seen and examined this patient. documented in this encounterHolzer [facility]12-16-2022 History of Present illness Narrative* Kavon Pinedo MD - 10/18/2022 2:01 PM EST Images from the original note were not included. This note was created using Saylent Technologiesriter. Subjective Macie Spencer is a 61 year old female. [...] TABLET Kavon Pinedo MD documented in this encounterHolzer [facility]11-30-2022 History of Present illness Narrative* Shannon León RN - 10/02/2022 8:59 AM EST Patient identified by name and date of . Macie Spencer is here for her HPV Gardasil [...] injection. Shannon León RN documented in this encounterHolzer [facility] [place]11-30-2022 Instructions* Patient Instructions* Shannon León RN - 10/02/2022 8:59 AM EST Gardasil Gardasil is a vaccine to protect against Human Papillomavirus (HPV) types 6, 11, 16, 18, 31,33,45, 52, 58. These viruses cause cancer and precancerous lesions on the cervix (opening between vagina and uterus), in the vagina and on the vulva (skin around the outside of the vagina) as well as genitalwarts. The vaccine cannot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 Alopecia, unspecified documented in this encounter [facility] Discharge instructions* Attachments The following attachments cannot be sent through Care Everywhere. * Abrasions (Latvian Irish) * Contusion (Latvian Irish) [facility] for [facility] (narrative)* Diagnostic Procedure Only (Routine) - Pending Review Specialty Diagnoses / Procedures Referred By Damari dallas Referred To Contact [facility] Diagnoses Encounter for screening mammogram for breast cancer Procedures RAFAEL SCREENING SCREENING MAMMOGRAPHY BI 2-VIEW BREAST INC CAD Nehal Barriga APRN.IMPLEMENTATION PROJECT MANAGER [address] [place] [address] [facility] [address] [place] [address] Referral ID Status Reason Start Date Expiration Date Visits Requested Visits Authorized [id number] Pending Review Auto-Generat ed Referral 06/21/2022 07/21/2023 1 1 [facility] for referral (narrative)* Diagnostic Procedure Only (Routine) - Closed Specialty Diagnoses / Procedures Referred By Damari dallas Referred To Contact [facility] Diagnoses Encounter for screening mammogram for malignant neoplasm of breast Procedures RAFAEL SCREENING SCREENING MAMMOGRAPHY BI 2-VIEW BREAST INC Kavon Loredo MD [address] [place] [address] [facility] [address] [place] [address] Referral ID Status Reason Start Date Expiration Date V isits Requested Visits Authorized [id number] Closed Auto-Generate d Referral 06/10/2022 07/10/2023 1 1 [facility] for referral (narrative)* Diagnostic Procedure Only (Routine) - Pending Review Specialty Diagnoses / Procedures Referred By Damari dallas Referred To Contact [facility] Diagnoses Abnormal mammogram Procedures US BREAST LTD LT US BREAST UNI REAL TIME WITH IMAGE LIMITED Nehal Barriga APRN.CNP [address] [place] [address] [facility] [address] [place] [address] Referral ID Status Reason Start Date Expiration Date Visits Requested Visits Authorized [id number] Pending Review Auto-Generat ed Referral 06/27/2022 07/27/2023 1 1 * Diagnostic Procedure Only (Routine) - Pending Review Specialty Diagnoses / Procedures Referred By Contac t Referred To Contact [facility] Diagnoses Abnormal mammogram Procedures US BREAST LTD RT US BREAST UNI REAL TIME WITH IMAGE LIMITED Nehal Barriga APRN.CNP [address] [place] [address] [facility] [address] [place] [address] Referral ID Status Reason Start Date Expiration Date Visits Requested Visits Authorized [id number] Pending Review Auto-Generat ed Referral 06/27/2022 07/27/2023 1 1 * Diagnostic Procedure Only (Routine) - Pending Review Specialty Diagnoses / Procedures Referred By Damari t Referred To Contact [facility] Diagnoses Abnormal mammogram Procedures RAFAEL DIAGNOSTIC BILAT DIAGNOSTIC MAMMOGRAPHY COMPUTER-AIDED DETCJ BI Nehal Barriga APRN.IMPLEMENTATION PROJECT MANAGER [address] [place] [address] [facility] [address] [place] [address] Referral ID Status Reason Start Date Expiration Date Visits Requested Visits Authorized [id number] Pending Review Auto-Generat ed Referral 06/27/2022 07/27/2023 1 1 [facility] for referral (narrative)* Outpatient Procedure (Routine) - Authorized Specialty Diagnoses / Procedures Referred By Damari t Referred To Contact [facility] Diagnoses Atypical squamous cell changes of undetermined significance (ASCUS) on cervical cytology with positive high risk human papilloma virus (HPV) Procedures COLPOSCOPY COLPOSCOPY CERVIX BX CERVIX & ENDOCRV CURRETAGE Nehal Barriga APRN.CNP [address] [place] [address] [facility] [address] [place] [address] Referral ID Status Reason Start Date Expiration Date Visits Requested Visits Authorized [id number] Authorized Auto-Generat ed Referral 07/01/2022 07/01/2023 1 1 [facility] for referral (narrative)* Outpatient Procedure (Routine) - Pending Review Specialty Diagnoses / Procedures Referred By Damari t Referred To Contact [facility] Diagnoses Screening for colon cancer Procedures COLONOSCOPY SCREENING COLONOSCOPY FLX DX W/COLLJ SPEC WHEN PFRosetta Myers APRN.IMPLEMENTATION PROJECT MANAGER [address] [place] [address] [address] Referral ID Status Reason Start Date Expiration Date Visits Requested Visits Authorized [id number] Pending Review Auto-Generat ed Referral 05/04/2024 05/04/2025 1 1 [facility] for referral (narrative)* Outpatient Procedure (Routine) - Closed Specialty Diagnoses / Procedures Referred By Contkim dallas Referred To Contact [facility] Diagnoses Screening for colon cancer Procedures COLONOSCOPY SCREENING COLONOSCOPY FLX DX W/COLLJ SPEC WHEN PFRosetta Myers APRN.CNP [address] [place] [address] [address] Referral ID Status Reason Start Date Expiration Date V isits Requested Visits Authorized [id number] Closed Auto-Generate d Referral 05/04/2024 05/04/2025 1 1 [facility] for referral (narrative)* Diagnostic Procedure Only (Routine) - Closed Specialty Diagnoses / Procedures Referred By Contac t Referred To Contact [facility] Diagnoses Pain of left hand Procedures XR HAND GENERAL 3V PA/LAT/OBL LEFT RADEX HAND MINIMUM 3 VIEWS Kavon Pinedo MD [address] [place] [address] [place] [address] Referral ID Status Reason Start Date Expiration Date V isits Requested Visits Authorized [id number] Closed Auto-Generate d Referral 06/10/2022 07/10/2023 1 1 [facility] for referral (narrative)* Diagnostic Procedure Only (Routine) - Authorized Specialty Diagnoses / Procedures Referred By Contac t Referred To Contact [facility] Diagnoses Encounter for gynecological examination (general) (routine) without abnormal findings Encounter for screening mammogram for breast cancer Procedures RAFAEL SCREENING W DANIEL SCREENING DIGITAL BREAST TOMOSYNTHESIS BI SCREENING MAMMOGRAPHY BI 2-VIEW BREAST INC CAD Nehal Barriga APRN.IMPLEMENTATION PROJECT MANAGER [address] [place] [address] [facility] [address] [place] [address] Referral ID Status Reason Start Date Expiration Date Visits Requested Visits Authorized [id number] Authorized Auto-Generat ed Referral 09/22/2025 1 1 [facility] for referral (narrative)* Outpatient Procedure (Routine) - Authorized Specialty Diagnoses / Procedures Referred By Contac t Referred To Contact [facility] Diagnoses Cervical high risk HPV (human papillomavirus) test positive Procedures COLPOSCOPY COLPOSCOPY CERVIX BX CERVIX & ENDOCRV CURRETAGE Nehal Barriga APRN.IMPLEMENTATION PROJECT MANAGER [address] [place] [address] [facility] [address] [place] [address] Referral ID Status Reason Start Date Expiration Date Visits Requested Visits Authorized [id number] Authorized Auto-Generat ed Referral 08/30/2025 1 1 [facility] for referral (narrative)* Outpatient Procedure (Routine) - New Request Specialty Diagnoses / Procedures Referred By Contac t Referred To Contact [facility] Diagnoses Cervical high risk human papillomavirus (HPV) DNA test positive Procedures COLPOSCOPY COLPOSCOPY CERVIX BX CERVIX & ENDOCRV CURRETAGE Shannon Guerrero MD [address] [place] [address] [facility] [address] [place] [address] Referral ID Status Reason Start Date Expiration Date Visits Requested Visits Authorized [id number] New Request Auto-Generat ed Referral 09/06/2024 09/06/2025 1 1 [facility] for referral (narrative)No reason for referral information availableWMetroHealth [facility] Work Phone: Reason for visit Narrative* Diagnostic Procedure Only (Routine) - Closed Specialty Diagnoses / Procedures Referred By Damari Referred To Contact [facility] Diagnoses Encounter for screening mammogram for malignant neoplasm of breast Procedures RAFAEL SCREENING SCREENING MAMMOGRAPHY BI 2-VIEW BREAST INC CAD Kavon Pinedo MD [address] [place] [address] [facility] [address] [place] [address] Referral ID Status Reason Start Date Expiration Date V isits Requested Visits Authorized [id number] Closed Auto-Generate d Referral 06/10/2022 07/10/2023 1 1 [facility] for visit Narrative* Outpatient Procedure (Routine) - Closed Specialty Diagnoses / Procedures [facility] Referred To Contact [facility] Diagnoses Screening for colon cancer Procedures COLONOSCOPY SCREENING COLONOSCOPY FLX DX W/COLLJ SPEC WHEN PFRosetta Myers APRN.CNP [address] [place] [address] [facility] [address] [place] [address] Referral ID Status Reason Start Date Expiration Date V isits Requested Visits Authorized [id number] Closed Auto-Generate d Referral 05/04/2024 05/04/2025 1 1 [facility] for visit Narrative* Diagnostic Procedure Only (Routine) - Closed Specialty Diagnoses / Procedures Referred By Contac t Referred To Contact [facility] Diagnoses Pain of left hand Procedures XR HAND GENERAL 3V PA/LAT/OBL LEFT RADEX HAND MINIMUM 3 VIEWS Kavon Pinedo MD [address] [place] [address] [place] [address] Referral ID Status Reason Start Date Expiration Date V isits Requested Visits Authorized [id number] Closed Auto-Generate d Referral 06/10/2022 07/10/2023 1 1 [facility] for visit Narrative* Diagnostic Procedure Only (Routine) - Closed Specialty Diagnoses / Procedures Referred By Damari t Referred To Contact [facility] Diagnoses Encounter for screening mammogram for malignant neoplasm of breast Procedures RAFAEL SCREENING W DANIEL SCREENING DIGITAL BREAST TOMOSYNTHESIS BI SCREENING MAMMOGRAPHY BI 2-VIEW BREAST INC CAD Kavon Pinedo MD [facility] [place] [address] [facility] [address] [place] [address] Referral ID Status Reason Start Date Expiration Date V isits Requested Visits Authorized [id number] Closed Auto-Generate d Referral 08/05/2024 09/04/2025 1 1 [facility] Summary Purpose Family History No Family History Records Found Relationship Condition Age at Onset Recorded Date/[place] sister Malignant neoplasm of breast Unknown sister Diabetes mellitus Unknown mother Cardiac disease Unknown Hypertension Unknown Disorder of thyroid Unknown father Malignant neoplasm Unknown Advance Directives No Advanced Directives Records FoundDocuments on File Type Date Recorded 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 Expl 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 Advance Directives and Living Will Documents on File Type Date Recorded 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 female who [...] independently by attending. Afua Mckeon DO, PGY-3 [facility] in this encounter* Rach Conrad DO - 04/13/2019 4:43 PM EDT Assessment and Plan: Problem List Items Addressed This Visit Other Moderate episode of recurrent major depressive disorder (HCC) - Primary Patient with uncontrolled depression symptoms. Seems to have been triggered by recent stressors (surgery with postoperative complications, and end of a snf relationship with her boyfriend). Previously well controlled [...] by attending. Rach Conrad DO, PGY-[address] [facility] Pager: [phone] Subjective: HPI Macie Spencer is a 58 y.o. female with [...] for her and this was done at [facility]. She does not currently see a counselor. [...] file Gets together: Not on file Attends bahai service: Not on file Active member of [...] for Cyst on neck. Subjective: Patient ID: Macie Spencer is a 58 y.o. female. Patient [...] was frontal bilateral. She is leaving for [place] on 10/15-10/22 and wants this bump to [...] independently by attending. Jerel Scherer PGY-1 Pager: [phone] documented in this encounter* Genesis Cortes MD [...] Family Medicine Primary Care Sports Medicine * Bridgett Rosado MD - 09/26/2020 9:40 AM EST Macie Spencer is a 59 y.o. female that [...] recent stress test, most recently without issue 2013 Revised Cardiac Risk Index: (patient with 3 or more should be put on Beta henry, do not start on day of surgery, do not titrate) DM: NO Heart Failure: NO (should have had an echo in the last year) CAD: NO Cerebrovascular disease: NO CKD: NO Any recent AL? No If so, patient needs to wait [...] note to be addended Bridgett Rosado MD [facility] PGY-3 Pager# [phone] Patient was discussed with Dr. Cortes. Patient was not seen by attending. documented in this encounter* Bladimir Santiago MD - 09/03/2019 3:01 PM EDT Macie Spencer is a 58 y.o. female with [...] nose which was resected, and has seen combination presser earlier this year. - Recommended assessment by combination presser for evaluation and possible biopsy of skin lesion. Patient was discussed with Dr. Rmaírez. Patient was seen and examined independently by attending. Subjective: Macie has cough, runny nose, scratchy throat, post [...] to acne. Recommended she make appointment with combination presser who she follows with for evaluation and [...] (Keep the numbers for these national suicide hotlines:8-342-534-TALK [ ] and 7-034-BMNYWTA [ ].) Get treatment By treating your [...] Log into your personal health record on [email or web address] and enter A548 in the Education box to learn more about Depression and Chronic Disease: Care Instructions. Current as of: July 14, 2018 Content Version: 12.0 5610-6692 [employer]. Care instructions adapted under license by your healthcare professional. If you have questions about a medical condition or this instruction, always ask your healthcare professional. [employer] disclaims any warranty or liability for your use of this information. documented in this encounter* Patient Instructions* Bridgett Rosado MD - 09/26/2020 10:37 AM EST Trigger [...] Log into your personal health record on [email or web address] and enter T355 in the Education box to learn more about Trigger Thumb and Trigger Finger in Children: Care Instructions. Current as of: January 03, 2020 Content Version: 12.6 9262-2716 [employer]. Care instructions adapted under license by your healthcare professional. If you have questions about a medical condition or this instruction, always ask your healthcare professional. [employer] disclaims any warranty or liability for your [...] care for yourself at home? Take an kdas-equ-bxwobjg pain medicine, such as acetaminophen (Tylenol), ibuprofen (Advil, Motrin),or naproxen (Aleve). Read and follow all instructions on the label. If the doctor prescribed antibiotics, take them as directed. Do not stop taking them just because you feel better. You need to take the full course of antibiotics. Be careful when taking mard-vud-oxznwgm cold or flu medicines and Tylenol at [...] Log into your personal health record on [email or web address] and enter I933 in the Education box to learn more about Sinusitis: Care Instructions. Current as of: August 23, 2018 Content Version: 12.20055442-1541 [employer]. Care instructions adapted under license by your healthcare professional. If you have questions about a medical condition or this instruction, always ask your healthcare professional. [employer] disclaims any warranty or liability for your use of this information. documented in this encounter Reason for Referral Status Reason Specialty Diagnoses / Procedures Referred By Contact Referred To Contact Authorized Radiology Diagnoses Encounter for screening for malignant neoplasm of breast, unspecified screening modality Procedures Mammography Screening Bilateral Vengal, Genesis Christopher MD [address] [place] [address] Status Reason Specialty Diagnoses / Procedures Re ferred By Contact Referred To Contact Authorized Cardiology Diagnoses Trigger finger of right thumb Encounter for preadmission testing Procedures ECG 12 Lead Nolberto Mo MD [address] [place] [address] Status Reason Specialty Diagnoses / Procedures Re ferred By Contact Referred To Contact Authorized Cardiology Diagnoses Encounter for preadmission testing Procedures ECG 12 Lead Choco Kim MD [address] [facility] [address] [place] [address] Specialty Diagnoses / Procedures Referred By Contac t Referred To Contact Radiology Diagnoses Screening breast examination Procedures Mammography Screening Bilateral Bridgett Rosado MD [address] [place] [address] Referral ID Status Reason Start Date Expiration Date V isits Requested Visits Authorized [id number] Authorized 01/18/2022 01/18/2023 1 1 Specialty Diagnoses / Procedures Referred By Contac t Referred To Contact Gynecology Diagnoses Screening for cervical cancer Procedures CONSULT TO GYNECOLOGY OFFICE/OUTPATIENT [facility] MDM 60-74 MINUTES Kavon Pinedo MD [address] [place] [address] Referral ID Status Reason Start Date Expiration Date Visits Requested Visits Authorized [id number] Authorized PCP Requested Referral Auto-Generate d Referral 06/10/2022 06/10/2023 1 1 Specialty Diagnoses / Procedures Referred By Contac t Referred To Contact XR IMAGING Diagnoses Pain of left hand Procedures XR HAND GENERAL 3V PA/LAT/OBL LEFT RADEX HAND MINIMUM 3 VIEWS Kavon Pinedo MD [address] [place] [id number] [facility] Referral ID Status Reason Start Date Expiration Date V isits Requested Visits Authorized [id number] Closed Auto-Generate d Referral 06/10/2022 07/10/2023 1 1 Specialty Diagnoses / Procedures Referred By Contac t Referred To Contact BR IMAGING Diagnoses Encounter for screening mammogram for malignant neoplasm of breast Procedures RAFAEL SCREENING SCREENING MAMMOGRAPHY BI 2-VIEW BREAST INC CAD Kavon Pinedo MD [address] [place] [address] [facility] [address] [place] [address] Referral ID Status Reason Start Date Expiration Date Visits Requested Visits Authorized [id number] Authorized Auto-Generat ed Referral 06/10/2022 07/10/2023 1 1 Specialty Diagnoses / Procedures Referred By Contac t Referred To Contact Ophthalmology Diagnoses Eyelid inflammation Procedures CONSULT TO OPHTHALMOLOGY OFFICE/OUTPATIENT [facility] 60-74 MINUTES Kavon Pinedo MD [address] [place] [address] Referral ID Status Reason Start Date Expiration Date Visits Requested Visits Authorized [id number] Authorized PCP Requested Referral 2 10/18/2023 1 1 Specialty Diagnoses / Procedures Referred By Contac t Referred To Contact Gynecology Diagnoses Screening for cervical cancer Procedures CONSULT TO GYNECOLOGY OFFICE/OUTPATIENT [facility] 60 MINUTES Kavon Pinedo MD [address] [place] [address] Referral ID Status Reason Start Date Expiration Date Visits Requested Visits Authorized [id number] Authorized PCP Requested Referral Auto-Generate d Referral 08/05/2024 08/05/2025 1 1 Specialty Diagnoses / Procedures Referred By Contac t Referred To Contact [facility] Diagnoses Encounter for screening mammogram for malignant neoplasm of breast Procedures RAFAEL SCREENING W DANIEL SCREENING DIGITAL BREAST TOMOSYNTHESIS BI SCREENING MAMMOGRAPHY BI 2-VIEW BREAST INC CAD Kavon Pinedo MD [address] [place] [address] [facility] [address] [place] [address] Referral ID Status Reason Start Date Expiration Date Visits Requested Visits Authorized [id number] Authorized Auto-Generat ed Referral 08/05/2024 09/04/2025 1 [...] Drop, LEFT EYE, ONCE, 1 dose, On 11/11/22 at 1100, FOR THE EYE Given 11/11/2022 11:00 AM EST 1 Drop Chief Complaint and Reason for Visit Chief Complaint Admit Date LIPOMAS August 05, 2025 1: 50pm Chief Complaint Admit Date LIPOMAS August 05, 2025 1: 50pm LIPOMA ON ARM August 10, 2025 8: 56am Reason for Visit Admit Date Multiple lipomas August 05, 2025 1: 50pm Reason for Visit Admit Date Multiple lipomas August 05, 2025 1: 50pm Multiple lipomas August 10, 2025 8: 56am Additional Source Comments INFORMATION SOURCE (unrecogn ized section and content) DATE CREATED AUTHOR 04/28/2018 [facility] DATE CREATED AUTHOR AUTHOR'S ORGANIZ ATION 04/28/2018 [facility] DATE CREATED AUTHOR AUTHOR'S ORGANIZ ATION 05/19/2018 [facility] DATE CREATED AUTHOR AUTHOR'S ORGANIZ ATION 01/22/2022 [facility] DATE CREATED AUTHOR AUTHOR'S ORGANIZ ATION 02/15/2022 [facility] DATE CREATED AUTHOR AUTHOR'S ORGANIZ ATION 05/03/2022 [facility] DATE CREATED AUTHOR AUTHOR'S ORGANIZ ATION 07/02/2022 [facility] DATE CREATED AUTHOR AUTHOR'S ORGANIZ ATION 09/06/2025 [facility] DATE CREATED AUTHOR AUTHOR'S ORGANIZ ATION 09/13/2025 [facility] Assessment & Plan Note - Opal Dickson [...] anxiety disorder Well controlled. Moved back to [place] from [place] and needs refills on her medications. No SI/HI - Refilled Celexa 20mg and Buspar 15mg todayin this encounter Associated Problem(s): Moderate episode of recurrent major depressive disorder (HCC) Patient with uncontrolled depression symptoms. 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 Previously well controlled [...] nose which was resected, and has seen combination presser earlier this year. - Recommended assessment by combination presser for evaluation and possible biopsy of skin [...] Bilateral Mammography Screening Bilateral Bridgett Rosado MD [address] [place] [address] Reason Comments Blood Work Pt states she [...] MDM 60-74 MINUTES Kavon Pinedo MD [address] [place] [address] Referral ID Status Reason Start Date Expiration Date V isits Requested Visits Authorized [id number] Closed PCP Requested Referral Auto-Generated Referral 06/10/2022 06/10/2023 1 1 Reason Comments Mammogram Result Call Back Reason Comments Results Reason Comments Radiology Mammogram Specialty Diagnoses / Procedures Referred By Contac t Referred To Contact [facility] Diagnoses Abnormal mammogram Procedures RAFAEL DIAGNOSTIC BILAT DIAGNOSTIC MAMMOGRAPHY COMPUTER-AIDED DETCJ BI Nehal Barriga, SATISH.IMPLEMENTATION PROJECT MANAGER [address] [place] [address] [facility] [address] [place] [address] Referral ID Status Reason Start Date Expiration Date V isits Requested Visits Authorized [id number] Closed Auto-Generate d Referral 06/27/2022 07/27/2023 1 1 Reason Comments Colposcopy Specialty Diagnoses / Procedures [facility] Diagnoses Atypical squamous cell changes of undetermined significance (ASCUS) on cervical cytology with positive high risk human papilloma virus (HPV) Procedures COLPOSCOPY COLPOSCOPY CERVIX BX CERVIX & ENDOCRV CURRETAGE Nehal Barriga, EXTERNAL GRINDER TENDER.IMPLEMENTATION PROJECT MANAGER [address] [place] [address] [facility] [address] [place] [address] Referral ID Status Reason Start Date Expiration Date V isits Requested Visits Authorized [id number] Closed Auto-Generate d Referral 07/01/2022 07/01/2023 1 [...] Evaluation Specialty Diagnoses / Procedures Referred By Contac t Referred To Contact Ophthalmology Diagnoses Eyelid inflammation Procedures CONSULT TO OPHTHALMOLOGY OFFICE/OUTPATIENT NEW HIGH MDM 60-74 MINUTES Kavon Pinedo MD [address] [place] [address] Referral ID Status Reason Start Date Expiration Date V isits Requested Visits Authorized [id number] Closed PCP Requested Referral 10/18/2022 10/18/2023 1 1 Reason Comments Results Reason Comments Lab Orders Reason Comments Yearly Exam Reason Comments Hypertension 150/90 @ home Reason Comments Rectal Bleeding Reason Comments Pain Specialty Diagnoses / Procedures Referred By Contac t Referred To Contact Gynecology Diagnoses Screening for cervical cancer Procedures CONSULT TO GYNECOLOGY OFFICE/OUTPATIENT NEW HIGH MDM 60 MINUTES Kavon Pinedo MD [address] [place] [address] Referral ID Status Reason Start Date Expiration Date V isits Requested Visits Authorized [id number] Closed PCP Requested Referral Auto-Generated Referral 08/05/2024 08/05/2025 1 1 Reason Comments New Patient Better health. Reason Comments New Patient Reason Comments Colposcopy Specialty Diagnoses / Procedures [facility] Ref[facility] To Contact [facility] Diagnoses Cervical high risk HPV (human papillomavirus) test positive Procedures COLPOSCOPY COLPOSCOPY CERVIX BX CERVIX & ENDOCRV CURRETAGE Nehal Barriga APRN.IMPLEMENTATION PROJECT MANAGER [address] [place] [address] [facility] [address] [place] [address] Referral ID Status Reason Start Date Expiration Date V isits Requested Visits Authorized [id number] Closed Auto-Generate d Referral 08/30/2024 08/30/2025 1 1 Reason Comments Physical Reason Comments Bleeding/Bruising Reason Comments Patient Question Reason Comments Problem Visit Care Teams (unrecognized sec tion and content) Sustainability Engineer Relationship Specialty Start Date End Date Nilsa Velasco MD [address] [place] [address] PCP - General Family Medicine 12/29/19 Genesis Cortes MD [address] [place] [address] PCP - ROSY Attributed Provider - MMO Commercial 11/03/18 11/02/50 Dipak Gutiérrez MD [address] [place] [address] Consulting Physician Neurology 03/04/16 Red Lebron MD ROSY Attributed Provider - CABLE HOOKER Obstetrics/Gynecology 05/18/14 Kelsey Solorzano MD [address] [place] [address] ROSY Attributed Provider - Family Medicine Family Medicine 11/28/14 Sustainability Engineer Relationship Specialty Start Date End Date Nilsa Velasco MD [address] [place] [address] PCP - General Family Medicine 12/29/19 [facility] [address] [place] [address] PCP - ROSY Attributed Provider - MMO Commercial 11/03/18 11/02/50 Dipak Gutiérrez MD [address] [place] [address] Consulting Physician Neurology 03/04/16 Red Lebron MD ROSY Attributed Provider - CABLE HOOKER Obstetrics/Gynecology 05/18/14 Kelsey Solorzano MD [address] [place] [address] ROSY Attributed Provider - Family Medicine Family Medicine 11/28/14 Sustainability Engineer Relationship Specialty Start Date End Date Bridgett Rosado MD [address] [place] [address] PCP - ROSY Attributed Provider - MMO Commercial 11/03/18 11/02/50 Bia Meza DO [address] [place] [address] PCP - General Family Medicine 04/12/22 Dipak Gutiérrez MD [address] [place] [address] Consulting Physician Neurology 03/04/16 Red Lebron MD ROSY Attributed Provider - CABLE HOOKER Obstetrics/Gynecology 05/18/14 Kelsey Solorzano MD [address] [place] [address] ROSY Attributed Provider - Family Medicine Family Medicine 11/28/14 Sustainability Engineer Relationship Specialty Start Date End Date Pcp, No PCP - General 05/29/22 Sustainability Engineer Relationship Specialty Start Date End Date Pcp, No PCP - General 05/29/22 Sustainability Engineer Relationship Specialty Start Date End Date Pcp, No PCP - General 05/29/22 Sustainability Engineer Relationship Specialty Start Date End Date Pcp, No PCP - General 05/29/22 Sustainability Engineer Relationship Specialty Start Date End Date Pcp, No PCP - General 05/29/22 12/31/22 Sustainability Engineer Relationship Specialty Start Date End Date Pcp, No PCP - General 05/29/22 12/31/22 Sustainability Engineer Relationship Specialty Start Date End Date Pcp, No PCP - General 05/29/22 12/31/22 Sustainability Engineer Relationship Specialty Start Date End Date Pcp, No PCP - General 05/29/22 12/31/22 Sustainability Engineer Relationship Specialty Start Date End Date Pcp, No PCP - General 05/29/22 12/31/22 Sustainability Engineer Relationship Specialty Start Date End Date Pcp, No PCP - General 05/29/22 12/31/22 Sustainability Engineer Relationship Specialty Start Date End Date Pcp, No PCP - General 05/29/22 12/31/22 Sustainability Engineer Relationship Specialty Start Date End Date Kavon Pinedo MD [address] [place] [address] PCP - General Internal Medicine 08/28/22 Sustainability Engineer Relationship Specialty Start Date End Date Kavon Pinedo MD [address] [place] [address] PCP - General Internal Medicine 08/28/22 Sustainability Engineer Relationship Specialty Start Date End Date Kavon Pinedo MD [address] [place] [address] PCP - General Internal Medicine 08/28/22 Sustainability Engineer Relationship Specialty Start Date End Date Kavon Pinedo MD [address] [place] [address] PCP - General Internal Medicine 08/28/22 Sustainability Engineer Relationship Specialty Start Date End Date Kavon Pinedo MD [address] [place] [address] PCP - General Internal Medicine 08/28/22 Sustainability Engineer Relationship Specialty Start Date End Date Nilsa Velasco MD [address] [place] [address] PCP - General Family Medicine 12/29/19 04/11/22 Bridgett Rosado MD [address] [place] [address] PCP - [facility] Provider - MMO Commercial 11/03/18 08/01/22 Bia Meza DO [address] [place] [address] PCP - General Family Medicine 04/12/22 05/28/22 Bridgett Rosado MD [address] [place] [address] PCP - General Family Medicine 06/17/22 Dipak Gutiérrez MD [address] [place] [address] Consulting Physician Neurology 03/04/16 Red Lebron MD ROSY Attributed Provider - CABLE HOOKER Obstetrics/Gynecology 05/18/14 Kelsey Solorzano MD [address] [place] [address] ROSY Attributed Provider - Family Medicine Family Medicine 11/28/14 Sustainability Engineer Relationship Specialty Start Date End Date Angelic Machado MD [address] [place] [id number] PCP - General Family Medicine 04/08/19 12/28/19 Nilsa Velasco MD [address] [place] [address] PCP - General Family Medicine 12/29/19 04/11/22 Bridgett Rosado MD [address] [place] [address] PCP - ROSY Attributed Provider - MMO Commercial 11/03/18 08/01/22 Bia Meza DO [address] [place] [address] PCP - General Family Medicine 04/12/22 05/28/22 Bridgett Rosado MD [address] [place] [address] PCP - General Family Medicine 06/17/22 Dipak Gutiérrez MD [address] [place] [id number] Consulting Physician Neurology 03/04/16 Red Lebron MD ROSY Attributed Provider - CABLE HOOKER Obstetrics/Gynecology 05/18/14 Kelsey Solorzano MD [address] [place] [address] ROSY Attributed Provider - Family Medicine Family Medicine 11/28/14 Sustainability Engineer Relationship Specialty Start Date End Date Angelic Machado MD [address] [place] [address] PCP - General Family Medicine 04/08/19 12/28/19 Nilsa Velasco MD [address] [place] [address] PCP - General Family Medicine 12/29/19 04/11/22 Bridgett Rosado MD [address] [place] [address] PCP - ROSY Attributed Provider - MMO Commercial 11/03/18 08/01/22 Bia Meza DO [address] [place] [address] PCP - General Family Medicine 04/12/22 05/28/22 Bridgett Rosado MD [address] [place] [address] PCP - General Family Medicine 06/17/22 Dipak Gutiérrez MD [address] [place] [address] Consulting Physician Neurology 03/04/16 Red Lebron MD ROSY Attributed Provider - CABLE HOOKER Obstetrics/Gynecology 05/18/14 Kelsey Solorzano MD [address] [place] [address] ROSY Attributed Provider - Family Medicine Family Medicine 11/28/14 Sustainability Engineer Relationship Specialty Start Date End Date Kavon Pinedo MD [address] [place], [place] [id number] PCP - General Internal Medicine 08/28/22 Sustainability Engineer Relationship Specialty Start Date End Date Kavon Pinedo MD [address] [place] [address] PCP - General Internal Medicine 08/28/22 Sustainability Engineer Relationship Specialty Start Date End Date Kavon Pinedo MD [address] [place] [address] PCP - General Internal Medicine 08/28/22 Sustainability Engineer Relationship Specialty Start Date End Date Kavon Pinedo MD [address] [place] [address] PCP - General Internal Medicine 08/28/22 Sustainability Engineer Relationship Specialty Start Date End Date Kavon Pinedo MD [address] [place] [address] PCP - General Internal Medicine 08/28/22 Sustainability Engineer Relationship Specialty Start Date End Date Kavon Pinedo MD [address] [place] [address] PCP - General Internal Medicine 08/28/22 Sustainability Engineer Relationship Specialty Start Date End Date Kavon Pinedo MD [address] [place] [address] PCP - General Internal Medicine 08/28/22 Sustainability Engineer Relationship Specialty Start Date End Date Kavon Pinedo MD [address] [place] [address] PCP - General Internal Medicine 08/28/22 Sustainability Engineer Relationship Specialty Start Date End Date Kavon Pinedo MD [address] [place] [address] PCP - General Internal Medicine 08/28/22 Sustainability Engineer Relationship Specialty Start Date End Date Kavon Pinedo MD [address] [place] [address] PCP - General Internal Medicine 08/28/22 Sustainability Engineer Relationship Specialty Start Date End Date Pcp, Blanka, EXTERNAL GRINDER TENDER PCP - General 05/29/22 08/27/22 Sustainability Engineer Relationship Specialty Start Date End Date Kavon Pinedo MD [address] [place] [address] PCP - General Internal Medicine 08/28/22 Sustainability Engineer Relationship Specialty Start Date End Date Kavon Pinedo MD [address] [place] [address] PCP - General Internal Medicine 08/28/22 Sustainability Engineer Relationship Specialty Start Date End Date Kavon Pinedo MD [address] [place] [address] PCP - General Internal Medicine 08/28/22 Sustainability Engineer Relationship Specialty Start Date End Date Kavon Pinedo MD [address] [place] [address] PCP - General Internal Medicine 08/28/22 Sustainability Engineer Relationship Specialty Start Date End Date Kavon Pinedo MD [address] [place] [address] PCP - General Internal Medicine 08/28/22 Sustainability Engineer Relationship Specialty Start Date End Date Kavon Pinedo MD [address] [place] [address] PCP - General Internal Medicine 08/28/22 Sustainability Engineer Relationship Specialty Start Date End Date Kavon Pinedo MD [address] [facility] [place] [address] PCP - General Internal Medicine 08/28/22 Sustainability Engineer Relationship Specialty Start Date End Date Kavon Pinedo MD [address] [place] [address] PCP - General Internal Medicine 08/28/22 Sustainability Engineer Relationship Specialty Start Date End Date Kavon Pinedo MD [address] [place] [address] PCP - General Internal Medicine 08/28/22 Sustainability Engineer Relationship Specialty Start Date End Date Kavon Pinedo MD [address] [place] [address] PCP - General Internal Medicine 08/28/22 Sustainability Engineer Relationship Specialty Start Date End Date Kavon Pinedo MD [address] [place] [address] PCP - General Internal Medicine 08/28/22 Sustainability Engineer Relationship Specialty Start Date End Date Kavon Pinedo MD [address] [place] [address] PCP - General Internal Medicine 08/28/22 Sustainability Engineer Relationship Specialty Start Date End Date Kavon Pinedo MD [address] [place] [address] PCP - General Internal Medicine 08/28/22 Rosetta Landin, EXTERNAL GRINDER TENDER.IMPLEMENTATION PROJECT MANAGER [address] [facility] [place] [address] [facility] Internal Medicine 10/11/24 Sustainability Engineer Relationship Specialty Start Date End Date Kavon Pinedo MD [address] [facility] [place] [address] PCP - General Internal Medicine 08/28/22 Rosetta Landin, EXTERNAL GRINDER TENDER.IMPLEMENTATION PROJECT MANAGER [address] [facility] [place] [address] [facility] Internal Medicine 10/11/24 Team Status: Active Member [...] 2024 Team Status: Inactive Member Role Status Paco Garcia MD Primary Care Provider Active St art: December 27, 2024 End: December 27, 2024 Dank Garcia MD Attending Provider Active Start : December 27, 2024 End: December 27, 2024 Dank Garcia MD Referring Provider Active Start : December 27, 2024 End: December 27, 2024 Team Status: Active Member Role/Relationship Status Paco Garcia MD Primary care physician Active Team Status: Active Member Role/Relationship Status Paco Garcia MD Primary care physician Active S tart: July 29, 2025 Dank Garcia MD Attending physician Active Star t: July 29, 2025 Dank Garcia MD Referring Provider Active Start : July 29, 2025 Team Status: Inactive Member Role/Relationship Status Paco Garcia MD Primary care physician Active S tart: August 05, 2025 End: August 05, 2025 Dank Garcia MD Referring Provider Active Start : August 05, 2025 End: August 05, 2025 Dr. Yazan Winn MD Attending physician Active Start: August 05, 2025 End: August 05, 2025 Team Status: Inactive Member Role/Relationship Status Dates Dank Garcia MD Primary care physician Active S tart: August 10, 2025 End: August 10, 2025 Dank Garcia MD Referring Provider Active Start : August 10, 2025 End: August 10, 2025 Dr. Yazan Winn MD Attending physician Active Start: August 10, 2025 End: August 10, 2025 Team Status: Inactive Member Role/Relationship Status Dates Dank Garcia MD Primary care physician Active S tart: July 29, 2025 End: July 29, 2025 Dank Garcia MD Attending physician Active Star t: July 29, 2025 End: July 29, 2025 Dank Garcia MD Referring Provider Active Start : July 29, 2025 End: July 29, 2025 Scheduled Active and Recently Administ ered Medications [...] or prosecute any alcohol or drug abuse patient.[facility] the event this information is protected by the Federal Confidentiality of Alcohol and Drug Abuse Patient Records regulations: The Federal rules restrict any use of the information to criminally investigate or prosecute any alcohol or drug abuse patient.[facility] the event this information is protected by the Federal Confidentiality of Alcohol and Drug Abuse Patient Records regulations: The Federal rules restrict any use of the information to criminally investigate or prosecute any alcohol or drug abuse patient.[facility] the event this information is protected by the Federal Confidentiality of Alcohol and Drug Abuse Patient Records regulations: The Federal rules restrict any use of the information to criminally investigate or prosecute any alcohol or drug abuse patient.[facility] the event this information is protected by the Federal Confidentiality of Alcohol and Drug Abuse Patient Records regulations: The Federal rules restrict any use of the information to criminally investigate or prosecute any alcohol or drug abuse patient.[facility] the event this information is protected by the Federal Confidentiality of Alcohol and Drug Abuse Patient Records regulations: The Federal rules restrict any use of the information to criminally investigate or prosecute any alcohol or drug abuse patient.[facility] the event this information is protected by the Federal Confidentiality of Alcohol and Drug Abuse Patient Records regulations: The Federal rules restrict any use of the information to criminally investigate or prosecute any alcohol or drug abuse patient.[facility] the event this information is protected by the Federal Confidentiality of Alcohol and Drug Abuse Patient Records regulations: The Federal rules restrict any use of the information to criminally investigate or prosecute any alcohol or drug abuse patient.[facility] the event this information is protected by the Federal Confidentiality of Alcohol and Drug Abuse Patient Records regulations: The Federal rules restrict any use of the information to criminally investigate or prosecute any alcohol or drug abuse patient.[facility] the event this information is protected by the Federal Confidentiality of Alcohol and Drug Abuse Patient Records regulations: The Federal rules restrict any use of the information to criminally investigate or prosecute any alcohol or drug abuse patient.[facility] the event this information is protected by the Federal Confidentiality of Alcohol and Drug Abuse Patient Records regulations: The Federal rules restrict any use of the information to criminally investigate or prosecute any alcohol or drug abuse patient.[facility]In the event this information is protected by the Federal Confidentiality of Alcohol and Drug Abuse Patient Records regulations: The Federal rules restrict any use of the information to criminally investigate or prosecute any alcohol or drug abuse patient.[facility]In the event this information is protected by the Federal Confidentiality of Alcohol and Drug Abuse Patient Records regulations: The Federal rules restrict any use of the information to criminally investigate or prosecute any alcohol or drug abuse patient.[facility]In the event this information is protected by the Federal Confidentiality of Alcohol and Drug Abuse Patient Records regulations: The Federal rules restrict any use of the information to criminally investigate or prosecute any alcohol or drug abuse patient.[facility]In the event this information is protected by the Federal Confidentiality of Alcohol and Drug Abuse Patient Records regulations: The Federal rules restrict any use of the information to criminally investigate or prosecute any alcohol or drug abuse patient.[facility] JacksonIn the event this information is protected by the Federal Confidentiality of Alcohol and Drug Abuse Patient Records regulations: The Federal rules restrict any use of the information to criminally investigate or prosecute any alcohol or drug abuse patient.[facility] [place]In the event this information is protected by the Federal Confidentiality of Alcohol and Drug Abuse Patient Records regulations: The Federal rules restrict any use of the information to criminally investigate or prosecute any alcohol or drug abuse patient.[facility] JacksonIn the event this information is protected by the Federal Confidentiality of Alcohol and Drug Abuse Patient Records regulations: The Federal rules restrict any use of the information to criminally investigate or prosecute any alcohol or drug abuse patient.[facility] [place]In the event this information is protected by the Federal Confidentiality of Alcohol and Drug Abuse Patient Records regulations: The Federal rules restrict any use of the information to criminally investigate or prosecute any alcohol or drug abuse patient.[facility] JacksonIn the event this information is protected by the Federal Confidentiality of Alcohol and Drug Abuse Patient Records regulations: The Federal rules restrict any use of the information to criminally investigate or prosecute any alcohol or drug abuse patient.[facility] JacksonIn the event this information is protected by the Federal Confidentiality of Alcohol and Drug Abuse Patient Records regulations: The Federal rules restrict any use of the information to criminally investigate or prosecute any alcohol or drug abuse patient.[facility] JacksonIn the event this information is protected by the Federal Confidentiality of Alcohol and Drug Abuse Patient Records regulations: The Federal rules restrict any use of the information to criminally investigate or prosecute any alcohol or drug abuse patient.[facility] JacksonIn the event this information is protected by the Federal Confidentiality of Alcohol and Drug Abuse Patient Records regulations: The Federal rules restrict any use of the information to criminally investigate or prosecute any alcohol or drug abuse patient.[facility] JacksonIn the event this information is protected by the Federal Confidentiality of Alcohol and Drug Abuse Patient Records regulations: The Federal rules restrict any use of the information to criminally investigate or prosecute any alcohol or drug abuse patient.[facility] JacksonIn the event this information is protected by the Federal Confidentiality of Alcohol and Drug Abuse Patient Records regulations: The Federal rules restrict any use of the information to criminally investigate or prosecute any alcohol or drug abuse patient.[facility] JacksonIn the event this information is protected by the Federal Confidentiality of Alcohol and Drug Abuse Patient Records regulations: The Federal rules restrict any use of the information to criminally investigate or prosecute any alcohol or drug abuse patient.[facility] [place]In the event this information is protected by the Federal Confidentiality of Alcohol and Drug Abuse Patient Records regulations: The Federal rules restrict any use of the information to criminally investigate or prosecute any alcohol or drug abuse patient.[facility] JacksonIn the event this information is protected by the Federal Confidentiality of Alcohol and Drug Abuse Patient Records regulations: The Federal rules restrict any use of the information to criminally investigate or prosecute any alcohol or drug abuse patient.[facility] JacksonIn the event this information is protected by the Federal Confidentiality of Alcohol and Drug Abuse Patient Records regulations: The Federal rules restrict any use of the information to criminally investigate or prosecute any alcohol or drug abuse patient.[facility] JacksonIn the event this information is protected by the Federal Confidentiality of Alcohol and Drug Abuse Patient Records regulations: The Federal rules restrict any use of the information to criminally investigate or prosecute any alcohol or drug abuse patient.[facility] JacksonIn the event this information is protected by the Federal Confidentiality of Alcohol and Drug Abuse Patient Records regulations: The Federal rules restrict any use of the information to criminally investigate or prosecute any alcohol or drug abuse patient.[facility] [place]In the event this information is protected by the Federal Confidentiality of Alcohol and Drug Abuse Patient Records regulations: The Federal rules restrict any use of the information to criminally investigate or prosecute any alcohol or drug abuse patient.[facility] JacksonIn the event this information is protected by the Federal Confidentiality of Alcohol and Drug Abuse Patient Records regulations: The Federal rules restrict any use of the information to criminally investigate or prosecute any alcohol or drug abuse patient.[facility] JacksonIn the event this information is protected by the Federal Confidentiality of Alcohol and Drug Abuse Patient Records regulations: The Federal rules restrict any use of the information to criminally investigate or prosecute any alcohol or drug abuse patient.[facility] JacksonIn the event this information is protected by the Federal Confidentiality of Alcohol and Drug Abuse Patient Records regulations: The Federal rules restrict any use of the information to criminally investigate or prosecute any alcohol or drug abuse patient.[facility] JacksonIn the event this information is protected by the Federal Confidentiality of Alcohol and Drug Abuse Patient Records regulations: The Federal rules restrict any use of the information to criminally investigate or prosecute any alcohol or drug abuse patient.[facility] [place]In the event this information is protected by the Federal Confidentiality of Alcohol and Drug Abuse Patient Records regulations: The Federal rules restrict any use of the information to criminally investigate or prosecute any alcohol or drug abuse patient.[facility] [place]In the event this information is protected by the Federal Confidentiality of Alcohol and Drug Abuse Patient Records regulations: The Federal rules restrict any use of the information to criminally investigate or prosecute any alcohol or drug abuse patient.[facility] [place]In the event this information is protected by the Federal Confidentiality of Alcohol and Drug Abuse Patient Records regulations: The Federal rules restrict any use of the information to criminally investigate or prosecute any alcohol or drug abuse patient.[facility] [place]In the event this information is protected by the Federal Confidentiality of Alcohol and Drug Abuse Patient Records regulations: The Federal rules restrict any use of the information to criminally investigate or prosecute any alcohol or drug abuse patient.[facility] [place]In the event this information is protected by the Federal Confidentiality of Alcohol and Drug Abuse Patient Records regulations: The Federal rules restrict any use of the information to criminally investigate or prosecute any alcohol or drug abuse patient.[facility] [place]In the event this information is protected by the Federal Confidentiality of Alcohol and Drug Abuse Patient Records regulations: The Federal rules restrict any use of the information to criminally investigate or prosecute any alcohol or drug abuse patient.[facility] JacksonIn the event this information is protected by the Federal Confidentiality of Alcohol and Drug Abuse Patient Records regulations: The Federal rules restrict any use of the information to criminally investigate or prosecute any alcohol or drug abuse patient.[facility] [place]In the event this information is protected by the Federal Confidentiality of Alcohol and Drug Abuse Patient Records regulations: The Federal rules restrict any use of the information to criminally investigate or prosecute any alcohol or drug abuse patient.[facility] JacksonIn the event this information is protected by the Federal Confidentiality of Alcohol and Drug Abuse Patient Records regulations: The Federal rules restrict any use of the information to criminally investigate or prosecute any alcohol or drug abuse patient.[facility] [place]In the event this information is protected by the Federal Confidentiality of Alcohol and Drug Abuse Patient Records regulations: The Federal rules restrict any use of the information to criminally investigate or prosecute any alcohol or drug abuse patient.[facility] [place]In the event this information is protected by the Federal Confidentiality of Alcohol and Drug Abuse Patient Records regulations: The Federal rules restrict any use of the information to criminally investigate or prosecute any alcohol or drug abuse patient.[facility] JacksonIn the event this information is protected by the Federal Confidentiality of Alcohol and Drug Abuse Patient Records regulations: The Federal rules restrict any use of the information to criminally investigate or prosecute any alcohol or drug abuse patient.[facility] [place]In the event this information is protected by the Federal Confidentiality of Alcohol and Drug Abuse Patient Records regulations: The Federal rules restrict any use of the information to criminally investigate or prosecute any alcohol or drug abuse patient.[facility] [place] Goals (unrecognized section and content) Goals may be documented in a n alternate sectionGoals may be documented in an alternate sectionGoals may be documented in an alternate sectionGoals may be documented in an alternate section FOR RECORDS PERTAINING TO PATIENTS [...] BE BASED ON THE PRIMARY CLINICAL RECORDS. [facility] [employer] [facility]. provides no warranty or guarantee of the accuracy or completeness of information in this document.
[2025-09-27] MEDS: Lactated Ringers 1,000 ML 15 ML IV (06:44)
--- NOTE | 2025-09-27 06:59 | PRE.ANES_ITS ---
ASA Classification* ASA Classification ASA Classification: 3 (Emphysema, DINORAH, anxiety) Assessment & Plan Anesthesia* Anesthesia Assessment Anesthesia Assessment: Discussed sedation and/or anesthesia options, risks, benefits, and alternatives with patient/parents/legal guardian/POA. Questions invited. The patient/parents/legal guardian/POA seems to understand and agrees to proceed with anesthesia plan. Reviewed the physical assessment, medical history, allergy history and patient home medications list prior to surgery/procedure/anesthetic and documented any changes. Performed airway and anesthesia risk assessments. Anesthesia Type Anesthesia Type: General (Can use ETT or LMA - ask surgeon as patient mentioned he may be working on upper extremity as well ) History Source History Obtained from:: Patient and Chart Anesthesia Focused Assessment* Temperature: 97.2 F Pulse Rate: 85 Blood Pressure: 128/88 Respiratory Rate: 16 Pulse Ox: 100 Oxygen Delivery Method: Room Air Airway Assessment Mouth opens: >3 cm Mallampati Score: II Teeth Condition: Intact Neck Range of motion (ROM): Full ROM Labs Anesthesia Preop lab: CBC WBC, (4.4-11.0) 3.1 K/mm3 L 07/29/25, 09:50 RBC, (4.2-5.4) 4.31 M/mm3 07/29/25, 09:50 Hgb, (12.0-15.0) 14.2 g/dL 07/29/25, 09:50 Hct, (37-47) 40.0 % 07/29/25, 09:50 Plt Count, (150-450) 244 K/mm3 07/29/25, 09:50 CHEMISTRY Potassium, (3.3-5.1) 4.4 mmol/L 07/29/25, 09:50 Sodium, (133-145) 140 mmol/L 07/29/25, 09:50 BUN, (4-19) 19 mg/dL 07/29/25, 09:50 Creatinine, (0.70-1.20) 0.68 mg/dL L 07/29/25, 09:50 Glucose, (70-99) 91 mg/dL 07/29/25, 09:50 COAG Pre-Assessment Diagnosis/Proposed Procedure Planned Operative Procedure(s): (B) Excision, Subcutaneous Masses x 8 lower extremity Anesthesia History 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 When Was Last Pacemaker Check QUESTION #4 FULL TEXT: You/Your Family Experience fever (hyperthermia) with Anesthesia Last Oral Intake Last Oral intake: Last Oral Intake NPO since 00:00 09/27/25 06:41 Meds taken in AM with sips of No 09/27/25 06:41 water? Meds patient instructed to take am of surgery PONV PONV - offset lithographic press setter: PONV - offset lithographic press setter Female Yes 09/20/25 11:10 HX of Motion Sickness No 09/20/25 11:10 HX of N/V After Surgery No 09/20/25 11:10 Non-Smoker Yes 09/20/25 11:10 Duration of Surgery greater No 09/20/25 11:10 than 60 minutes Number of Risk Factors 2 09/20/25 11:10 PONV Score Moderate Risk 09/20/25 11:10 Height & Weight Height & Weight: Anesthesia: Height & Weight Height 5 ft 3 in 09/27/25 06:41 Weight: 66.9 kg 09/27/25 06:41 Body Mass Index (BMI) 26.1 09/27/25 06:41 Respiratory Assessment Respiratory Assessment - offset lithographic press setter: Respiratory Tract Infection Hx - offset lithographic press setter Hx Respiratory Tract Infection No 09/20/25 11:10 STOP Sleep Apnea STOP Sleep Apnea - offset lithographic press setter: STOP Sleep Apnea - offset lithographic press setter Hx Hypertension No 09/20/25 11:10 Hx Sleep Apnea Yes 09/20/25 11:10 CPAP Yes: NON COMPLIANT 09/20/25 11:10 BIPAP No 09/20/25 11:10 Do you snore loudly (louder than talking or can be heard Do you often feel tired/ fatigued/ sleepy during daytime? Has anyone observed you stop breathing during sleep? STOP Results Positive 09/20/25 11:10 QUESTION #5 FULL TEXT : Do you snore loudly (louder than talking or can be heard through closed doors)? Tobacco Use History Tobacco Use History - offset lithographic press setter: Tobacco Use History - offset lithographic press setter Tobacco Use Smoking Status Never smoker 09/20/25 11:10 Hx Tobacco Use No 09/20/25 11:10 Years Smoking Packs Smoked per Day Smoking Cessation Date was within the last 15 years Hx Smoking Cessation Date Hx Smoking Cessation Counseling Hematologic Medial History Hematologic Hx - offset lithographic press setter: Hematologic Medical Hx - rheologist Hx of Blood Transfusion Yes 09/20/25 11:10 Hx of Transfusion in last 3 No 09/20/25 11:10 Months Date of Last Transfusion (if within last 3 months) Ever experience any problems No 09/20/25 11:10 with transfusion(s)? Specify any problems Hx of Preganancy in last 3 N/A 09/20/25 11:10 Months Nurse Filling Out Transfusion NBUCHER 09/20/25 11:10 & Questions: Date: 09/20/25 09/20/25 11:10 Time: 11:12 09/20/25 11:10 Patient unable to answer at this time (ie. confused, unrespo /Reproduction History /Reproductive History - offset lithographic press setter: /Reproductive Hx- offset lithographic press setter Hx Now No 09/20/25 11:10 Gestational Age (in weeks): EDC: Hx Hx Para Hx Section SAB No 09/20/25 11:10 Does the father of the baby or his family experience fever w Father of the baby Malignant Hypertension history comment Active Medications Active Medications: Current Medications Generic Name Dose Route Start Last Admin Trade Name Freq PRN Reason Stop Dose Admin Lactated Ringer's 1,000 mls @ 15 mls/hr 09/27/25 06:30 09/27/25 06:44 IV 15 mls/hr .Q48H ROHIT Administration PFSH Medical History (Updated 09/20/25 @ 11:18 by Margo Mak) Alcohol use Anemia Non-smoker History of stress test History of trigger finger H/O lipoma Asthma Emphysema lung Arthritis Osteoporosis Rosacea Depression Anxiety Home Medications ?Medication ?Instructions ?Recorded ?Last Taken ?Type cholecalciferol (vitamin D3) 25 25 mcg PO QDAY 5 09/25/25 History mcg (1,000 unit) capsule duloxetine 30 mg capsule,delayed 30 mg PO QDAY 5 09/26/25 History release minoxidil 2.5 mg tablet 2.5 mg PO QDAY 08/05/2509/04 History cetirizine 10 mg tablet (Zyrtec) 10 mg PO DAILY Allerg ies 09/20/25 09/26/25 History cyanocobalamin (vitamin B-12) 50 50 mcg PO DAILY 09/2009/25/25 History mcg tablet (Vitamin B-12) Allergy/AdvReac Type Severity Reaction Status Date / Time Iodinated Contrast Media (IV Allergy Severe Anaphylaxis Verified 09/20/25 11:08 dye) vancomycin Allergy Severe Anaphylaxis Verified 09/20/25 11:08 codeine Allergy Mild itching Verified 09/20/25 11:08 Family History (Updated 08/05/25 @ 14:16 by Katya Hernandez) Sister Breast cancer half sister on dad's side Sister Diabetes Mother Heart disease Hypertension Thyroid disorder Father Cancer kidney and prostate Surgical History (Updated 09/20/25 @ 11:18 by Margo Mak) History of colonoscopy History of repair of left rotator cuff History of hand surgery History of hysteroscopy Hx of tonsillectomy H/O laminectomy Social History (Updated 08/05/25 @ 14:16 by Katya Hernandez) household members: none Smoking Status: Never smoker alcohol intake: current alcohol intake frequency: a few times a week Review of Systems (Anesthesia) ROS Narrative System reviewed and no additional complaints, except as documented. Physical Exam Const alert, oriented x3 and average body habitus Resp normal respiratory effort, normal air movement and clear to auscultation bilaterally Cardio regular rate, regular rhythm and no murmurs; Negative for diaphoretic
--- NOTE | 2025-09-27 07:30 | LIP_PTH ---
PATIENT: ELIESER LARIOS LOC: [facility] [place] U#:[id number] AGE/SX: 64/F ROOM: RE09/27/[address]: Dr. Yazan Winn MD : 1960 BED: DIS: 09/27/2025 SPEC #: [id number] RECD: 09/27/25 09:36 STATUS: GODWIN RENikia #: [id number] YASHIRA: 09/27/25 07:[address]: Yazan Winn DEPT: SURGICAL PATHOLOGY RECD BY: Mac Arvizu ENTERED: 09/27/25 11:28 SP TYPE: LIPOMA OTHR DR: Dank Garcia MD Tissues: A - Soft tissues, NOS B - Soft tissues, NOS C - Soft tissues, NOS D - Soft tissues, NOS E - Soft tissues, NOS Procedures: Surgery Specimen Level III HEADER OPERATION: Excision, subcutaneous mass x 12 bilateral lower extremity PRE-OP DIAGNOSIS: Multiple lipomas TISSUE SUBMITTED: A- Left thigh subcutaneous mass x3, B- Right thigh subcutaneous mass x 5, C- Left arm subcutaneous mass x2, D- Right arm subcutaneous mass, E- Abdominal wall subcutaneous mass MICROSCOPIC DIAGNOSIS A. Soft tissue, thigh, left, excision: * Lipoma B. Soft tissue, thigh, right, excision: * Lipoma C. Soft tissue, arm, left, excision: * Lipoma D. Soft tissue, arm, right, excision: * Lipoma E. Soft tissue, abdominal wall, excision: * Lipoma MICROSCOPIC DESCRIPTION Slides are reviewed. GROSS DESCRIPTION Received in 6 formalin containers labeled with the patient's name and date of . Designated as: A. Left thigh subcutaneous mass x 3 is a 3.7 x 3.1 x 1.4 cm aggregate of hilliard-yellow lobulated tissue fragments with homogenous cut surfaces. Binder And Box Builder sections are submitted in 2 cassettes. B. Right thigh subcutaneous mass x 5 is a 5.6 x 4.7 x 1.5 cm aggregate of hilliard-yellow lobulated tissue fragments. Sectioning of the largest fragments reveals yellow, granular, homogenous cut surfaces. Binder [employer] Box Builder sections are submitted in 3 cassettes. C. Left arm subcutaneous mass x 2 is a 4.2 x 3.4 x 1.9 cm aggregate of hilliard-yellow lobulated tissue fragments with yellow granular, homogenous cut surfaces. Binder And Box Builder sections are submitted in 2 cassettes. D. Right arm subcutaneous mass is a 3.4 x 2.8 x 1.7 cm aggregate of hilliard-yellow, lobulated tissue fragments with homogenous cut surfaces. [employer]inder And Box Builder sections are submitted in 1 cassette. E. Abdominal wall subcutaneous mass is a 1.1 x 0.8 x 0.4 cm hilliard-yellow portion of soft tissue with yellow, homogenous cut surfaces. Entirely submitted in 1 cassette. VT 09/27/2025 CPT:02292p3
[2025-09-27] MEDS: Midazolam 2 MG/2 ML Syringe IV (07:36)
--- NOTE | 2025-09-27 07:36 | PCM.HP.STD ---
[facility] - General General Date of Service: 09/27/25 Chief Complaint: Multiple lipoma HPI Narrative ELIESER LARIOS, is a 64 F who presents for elective excision of multiple lipomas. Initially these were confined to the bilateral lower extremities. However, she now has a few more lesions on the arms and on the abdomen that she would like to have removed as well [facility] Medical History (Updated 09/20/25 @ 11:18 by Margo Mak) Alcohol use Anemia Non-smoker History of stress test History of trigger finger H/O lipoma Asthma Emphysema lung Arthritis Osteoporosis Rosacea Depression Anxiety Home Medications ?Medication ?Instructions ?Recorded ?Last Taken ?Type cholecalciferol (vitamin D3) 25 25 mcg PO QDAY 08/05/25 09/25/25 History mcg (1,000 unit) capsule duloxetine 30 mg capsule,delayed 30 mg PO QDAY 08/05/25 09/26/25 History release minoxidil 2.5 mg tablet 2.5 mg PO QDAY 08/05/25 09/26/25 History cetirizine 10 mg tablet (Zyrtec) 10 mg PO DAILY Allergies 09/20/25 09/26/25 History cyanocobalamin (vitamin B-12) 50 50 mcg PO DAILY 09/20/25 09/25/25 History mcg tablet (Vitamin B-12) Allergy/AdvReac Type Severity Reaction Status Date / Time Iodinated Contrast Media (IV Allergy Severe Anaphylaxis Verified 09/20/25 11:08 dye) vancomycin Allergy Severe Anaphylaxis Verified 09/20/25 11:08 codeine Allergy Mild itching Verified 09/20/25 11:08 Family History (Updated 08/05/25 @ 14:16 by Katya Hernandez) Sister Breast cancer half sister on dad's side Sister Diabetes Mother Heart disease Hypertension Thyroid disorder Father Cancer kidney and prostate Surgical History (Updated 09/20/25 @ 11:18 by Margo Mak) History of colonoscopy History of repair of left rotator cuff History of hand surgery History of hysteroscopy Hx of tonsillectomy H/O laminectomy Social History (Updated 08/05/25 @ 14:16 by Katya Hernandez) household members: none Smoking Status: Never smoker alcohol intake: current alcohol intake frequency: a few times a week Vital Signs Vital Signs Vital Signs: 09/27/25 06:37 09/27/25 06:41 09/27/25 06:41 Temperature 97.2 F L Temperature Source Temporal Pulse Rate 85 Respiratory Rate 16 Respiratory Pattern Normal Blood Pressure 128/88 H Blood Pressure Mean 101 Blood Pressure Source Monitor Blood Pressure Position Semi-Fowlers Blood Pressure Location Right Arm Baseline BP 128/88 Pulse Ox 100 Oxygen Delivery Method Room Air 09/27/25 07:02 Temperature 97.2 F L Temperature Source Pulse Rate 85 Respiratory Rate 16 Respiratory Pattern Blood Pressure 128/88 H Blood Pressure Mean Blood Pressure Source Blood Pressure Position Blood Pressure Location Baseline BP Pulse Ox 100 Oxygen Delivery Method Room Air Weight Weight: 147 lb 7.828 oz Body Mass Index (BMI) 26.1 Physical Exam Narrative She is alert and oriented x 3. She is in no acute distress. All the lesions that she wishes to have removed were marked. There were 5 lesions on the right leg. 3 lesions on the left leg. 1 lesion on the right arm. 2 lesions on the left arm, and 1 on the left upper abdomen Assessment & Plan Assessment/Plan (1) Multiple lipomas: PLAN: Plan Will plan to remove all indicated lipomas in the operating room today
[2025-09-27] MEDS: fentaNYL 100 MCG/2 ML Ampul IV (07:42)
[2025-09-27] MEDS: Lidocaine 1% (5 ml sdv) 5 ML Vial 4 ML IV (07:42)
[2025-09-27] MEDS: Lidocaine 1% /Epi 1:100 (20ml) 20 ML Vial (08:09)
[2025-09-27] MEDS: Lactated Ringers 2,000 ML 2000 ML IV (08:32)
--- NOTE | 2025-09-27 08:56 | PCM.OPRPT ---
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: Yes Right Of Way Manager: Miley Lentz Tasks completed by certified surgical tech/first assistant: Closing Additional review assistant?: No Type of Anesthesia: General and Local RN Documented Start/Stop Times: Operation Date: 09/27/25 07:30 Case Time Into Pre-Op 09/27/25 06:17 Out of Pre-Op 09/27/25 07:33 Anesthesia Start 09/27/25 07:36 Into Room 09/27/25 07:36 Procedure Start 09/27/25 08:09 Procedure End 09/27/25 08:48 Anesthesia End 09/27/25 08:52 Out of Room 09/27/25 08:52 Into Recovery 09/27/25 08:54 Procedure Start Time: 08:09 Procedure Stop Time: 08:48 Select all DRAINS/GRAFTS/IMPLANTS that apply: None Special Medications: None Estimated Blood Loss: 10 mL Specimen collected: Yes Description of specimen(s) removed: Multiple lipomas send as 5 separate specimens based on location. Left lower extremity, right lower extremity, left upper extremity, right upper extremity and abdominal wall Description of surgery: The patient is a 64-year-old female recently seen through the office with multiple lipomas. I removed several lipomas from her upper extremities however she had numerous lipomas involving her lower extremities. She wished to have all of these removed. She also found some additional lipomas involving her upper extremities. She had a total of about 12 lipomas that she wished to have removed. We discussed the details of the planned procedure and she wished to proceed. She was brought to the operating today following informed consent. Prior to anesthesia, we marked each lipoma that she wished to have removed. I allowed her to locate each 1 individually and each was marked with a king island. The patient was brought to the operating room and anesthesia was induced. Once adequately sedated the body was prepped and draped in the usual sterile manner to incorporate all of the lesions. The left thigh was performed first. There were 3 lipomas removed from this thigh. About a 1 cm incision was made over each location after being injected with local anesthetic. The lipomas were removed by dissecting them free with a curved hemostat and then delivering them through the incision. Each of these lipomas measured 2 cm. Each incision was then closed using 4-0 Vicryl and skin glue. We then turned our attention to the right thigh. On the right thigh there were a total of 5 lipomas. These were each individually marked as well. Local anesthetic was injected into each site. A #15 blade was then used to make a 1 cm incision. Each lipoma was excised in a similar manner using a curved hemostat. The lipomatous masses measured between 1.5 to 3 cm. These were sent to pathology as 1 specimen labeled right thigh lipomas. These incisions were also then closed using 4-0 Vicryl and skin glue. The solitary lesion involving the left upper abdomen/left lower chest was then removed. Local anesthetic was again infiltrated. A #15 blade was then used to make a 1 cm incision. This small lipoma measured 1 cm and was dissected in a similar manner using a curved hemostat. Hemostasis was excellent. The wound was closed using 4-0 Vicryl and skin glue. Next 2 lipomas were removed from the left upper extremity. These were injected with local anesthetic and then an incision was made over each location. These lipomas were dissected free also with a curved hemostat. 1 lipoma was about 2 cm in diameter and the other was about 3.5 cm in diameter. Each of these incisions were closed again using 4-0 Vicryl and skin glue. The final lipomatous mass was removed from the right upper extremity. This site was injected with local anesthetic and a 2 cm incision was made using a #15 blade. This lipomatous mass was dissected free using the hemostat. This was delivered through the incision and measured 4 cm. The incision was closed using 4-0 Vicryl and skin glue. All counts were correct. A total of 40 cc of local anesthetic were utilized for the case. Hemostasis at each incision was excellent. She was awakened anesthesia and taken to recovery in good condition Surgical Findings: Multiple lipomas Complications Complications: No Admit VTE Documentation VTE Present on Admission: No VTE Mechan Device Prophylaxis: SCD's VTE Pharm Prophylaxis ordered?: No
--- NOTE | 2025-09-27 08:58 | PCM.POST.ANE ---
Anesthesia: Postop Eval I Current Vital Signs Temperature: 97.3 F Pulse Rate: 81 Blood Pressure: 139/97 Respiratory Rate: 20 Pulse Ox: 100 Oxygen Delivery Method: Room Air Assessment Airway patent: Yes Spontaneous unlabored respirations: Yes Mental status: Awake and Calm nausea: No Vomiting: No Anesthesia Complication: No Fluid Hydration Crystalloid volume administer (ml): 1,200 Total IV fluid infused: 1,200 Progress Note Post-operative progress note: pt had a bite [place] on her lower left lip from biting down on the lma Anesthesia document: Postop Eval 1 completed: Yes
--- NOTE | 2025-09-27 09:11 | DCINST_ITS ---
Discharge Instructions Diet Discharge Diet: Light diet - advance as tolerated Activity Discharge Activity: Return to Normal Activity May shower in (days): 1 Ice area for (Minutes): 30 Dressing / Incision Call your doctor if your incision/area has: Continuous Slow Oozing, Sudden Increased Bleeding, Increased Pain/ Swelling, Increased Redness, Foul Smelling Discharge and Swelling at the incision site Call your doctor if you observe: Fever of 101 or Higher Cleanse incision/area with: Soap & Water Follow Up Care Please Follow Up With: Yzaan Winn MD When: 2 weeks. Please call office to schedule appointment Test Results: Test results from this visit will be discussed in further detail at your follow- up appointment, if applicable. Discharge Plan Admission Primary Reason for Your Visit: Excision of multiple lipomas Attending Provider: Yazan Winn Primary Care Provider: Dank Garcia Instructions Print Language: Swedish Discharge Orders/Prescriptions Prescriptions: New tramadol 25 mg tablet 25 mg PO Q6H PRN (Reason: pain) 3 Days Qty: 7 0RF Continued minoxidil 2.5 mg tablet 2.5 mg PO QDAY cholecalciferol (vitamin D3) 25 mcg (1,000 unit) capsule 25 mcg PO QDAY duloxetine 30 mg capsule,delayed release(DR/EC) 30 mg PO QDAY cetirizine [Zyrtec] 10 mg tablet 10 mg PO DAILY Vitamin B-12 50 mcg tablet 50 mcg PO DAILY Referrals / Follow Up: Dank Garcia MD [Primary Care Provider, Family Practice] Disposition Disposition (needs filled in before D/C Order can be placed): Home, Self Care
--- NOTE | 2025-09-27 09:33 | EX.PCM.DISCH ---
Discharge Instructions Diet Discharge Diet: Light diet - advance as tolerated Activity May shower in (days): 1 Ice area for (Minutes): 30 Dressing / Incision Call your doctor if your incision/area has: Continuous Slow Oozing, Sudden Increased Bleeding, Increased Pain/ Swelling, Increased Redness, Foul Smelling Discharge and Swelling at the incision site Call your doctor if you observe: Fever of 101 or Higher Cleanse incision/area with: Soap & Water Follow Up Care Please Follow Up With: Yazan Winn MD When: 2 weeks. Please call office to schedule appointment Test Results: Test results from this visit will be discussed in further detail at your follow-up appointment, if applicable. Discharge Plan Admission Primary Reason for Your Visit: Excision of multiple lipomas Attending Provider: Yazan Winn Primary Care Provider: Dank Garcia Instructions Print Language: Sinhala Discharge Orders/Prescriptions Prescriptions: New tramadol 25 mg tablet 25 mg PO Q6H PRN (Reason: pain) 3 Days Qty: 7 0RF Continued minoxidil 2.5 mg tablet 2.5 mg PO QDAY cholecalciferol (vitamin D3) 25 mcg (1,000 unit) capsule 25 mcg PO QDAY duloxetine 30 mg capsule,delayed release(DR/EC) 30 mg PO QDAY cetirizine [Zyrtec] 10 mg tablet 10 mg PO DAILY Vitamin B-12 50 mcg tablet 50 mcg PO DAILY Referrals / Follow Up: Dank Garcia MD [Primary Care Provider, Family Practice] Disposition Disposition (needs filled in before D/C Order can be placed): Home, Self Care
--- NOTE | 2025-09-27 13:37 | POSTOPAN2_ITS ---
Anesthesia Postop Eval I Sum Postop Eval Completion status Anesthesia document: Postop Eval 1 completed: Yes Anesthesia Postop Eval I Summary Anesthesia Postop Eval I Summary: Anesthesia Postop Eval I: Assessment Summary Airway patent Yes 09/27/25 09:00 [email or web address] Spontaneous unlabored Yes 09/27/25 09:00 [email or web address] respirations Mental status Awake,Calm 09/27/25 09:00 [email or web address] nausea No 09/27/25 09:00 [email or web address] Vomiting No 09/27/25 09:00 [email or web address] Anesthesia Postop Eval I: Fluid Summary Crystalloid volume administer 1,200 09/27/25 09:00 [email or web address] (ml) Colloids volume administered ( ml) Blood Product volume administered (ml) Total IV fluid infused 1,200 09/27/25 09:00 [email or web address] Anesthesia Postop Eval I: Summary Notes Anesthesia Complication No 09/27/25 09:00 [email or web address] Anesthesia Complication Comment: Post-operative progress note pt had a bite [place] 09/27/25 09:00 [email or web address] on her lower left lip from biting down on the lma Anesthesia: Postop Eval II Evaluation Mental status: Awake Pain Level: 0 nausea: No Vomiting: No Complications Anesthesia Complication: No
--- NOTE | 2025-09-27 13:37 | PCM.POSTANE2 ---
Anesthesia Postop Eval I Sum Postop Eval Completion status Anesthesia document: Postop Eval 1 completed: Yes Anesthesia Postop Eval I Summary Anesthesia Postop Eval I Summary: Anesthesia Postop Eval I: Assessment Summary Airway patent Yes 09/27/25 09:00 [email or web address] Spontaneous unlabored Yes 09/27/25 09:00 [email or web address] respirations Mental status Awake,Calm 09/27/25 09:00 [email or web address] nausea No 09/27/25 09:00 [email or web address] Vomiting No 09/27/25 09:00 [email or web address] Anesthesia Postop Eval I: Fluid Summary Crystalloid volume administer 1,200 09/27/25 09:00 [email or web address] (ml) Colloids volume administered ( ml) Blood Product volume administered (ml) Total IV fluid infused 1,200 09/27/25 09:00 [email or web address] Anesthesia Postop Eval I: Summary Notes Anesthesia Complication No 09/27/25 09:00 [email or web address] Anesthesia Complication Comment: Post-operative progress note pt had a bite [place] 09/27/25 09:00 [email or web address] on her lower left lip from biting down on the lma Anesthesia: Postop Eval II Evaluation Mental status: Awake Pain Level: 0 nausea: No Vomiting: No Complications Anesthesia Complication: No
== END 2025-09-27 11:10 | disposition home or self-care (01) ==
LOC: SDC 06:13 → AC 06:14
PROVIDERS: PCP Family Medicine; Referring Provider Surgery; Visit Provider Surgery
PROC: (CPT 27327; principal; 2025-09-27 07:15)
DX: D17.21 Benign lipomatous neoplasm of skin and subcutaneous tissue of right arm (principal); J43.9 Emphysema, unspecified; D17.22 Benign lipomatous neoplasm of skin and subcutaneous tissue of left arm; D17.23 Benign lipomatous neoplasm of skin and subcutaneous tissue of right leg; D17.24 Benign lipomatous neoplasm of skin and subcutaneous tissue of left leg; D17.1 Benign lipomatous neoplasm of skin and subcutaneous tissue of trunk; F41.9 Anxiety disorder, unspecified; F32.A Depression, unspecified; Z79.899 Other long term (current) drug therapy
CPT/HCPCS: 27327 ×2; 27337; 22902; 24075; 24071 ×2; 00400; 88304; J2405